=== PATIENT | female | born 1940 | race Caucasian/White ===

== ENCOUNTER 2019-11-10 08:17 | Emergency (ER) | payer MEDICARE, OTHER, SELFPAY ==
[2019-11-10] VITALS (9 sets, daily range): BP systolic 108–147; BP diastolic 57–79; PULSE 105–136; RESP 16–25; TEMP 37.3; O2SAT 90–94; BMI 28.2
--- NOTE | 2019-11-10 09:09 | XRR_ITS ---
PROCEDURE INFORMATION: Exam: XR Chest, 1 View Exam date and time: 11/10/2019 9:39 AM Age: 79 years old Clinical indication: Cough and shortness of breath; Patient HX: Cough/shortness of breath. Fever. HX of 2 toes amputated 3 weeks ago; Additional info: Dyspnea/cough TECHNIQUE: Imaging protocol: XR of the chest Views: 1 view. COMPARISON: No relevant prior studies available. FINDINGS: Lungs: Senescent changes are present. No focal consolidation is identified. Pleural space: Unremarkable. No pleural effusion. No pneumothorax. Heart/Mediastinum: Unremarkable. No cardiomegaly. Vasculature: Atherosclerotic calcifications are noted within the aortic arch. Bones/joints: Unremarkable. XR/XR chest 1V portable [id number] IMPRESSION: No acute abnormality.
--- NOTE | 2019-11-10 09:10 | ECG_ITS ---
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 Measurements Intervals [place] Rate: 121 P: VT: -1 QRS: 89 QRSD: 113 T: 54 QT: 338 QTc: 480 Interpretive Statements ATRIAL FIBRILLATION WITH RAPID VENTRICULAR RESPONSE WITH ABERRANT CONDUCTION OR VENTRICULAR PREMATURE COMPLEXES LOW QRS VOLTAGE IN PRECORDIAL LEADS [QRS DEFLECTION < 1.0 mV IN CHEST LEADS] POSSIBLE RIGHT VENTRICULAR CONDUCTION DELAY [RSR (QR) IN V1/V2] MODERATE ST DEPRESSION [0.05+ mV ST DEPRESSION] No previous ECG available for comparison Electronically Signed On 11-10-2019 21:22:45 CDT by Mago Ohara M.D. [id number]
--- NOTE | 2019-11-10 09:23 | USCV_ITS ---
Marissa Lara Age: 79 Gender: F : 1940 Exam Date: 11/10/2019 09:50 Ordering Phys: Abner Thrasher DO Technologist: Boubacar So [place] [facility] [place]: LEG SWELLING HISTORY: POST ARTERIAL SURGERY X3 WEEKS AGO. PATIENT NOT RESPONSIVE. PATIENT SPOUSE POOR HISTORIAN. PROCEDURES: Venous duplex imaging was performed in only the left lower extremity. The following venous structures were evaluated: common femoral vein, profunda vein, proximal portion of the greater saphenous vein, superficial femoral vein, and the popliteal vein. In addition, the posterior tibial and peroneal trunk were evaluated. Serial compression, augmentation maneuvers, and spectral Doppler flow evaluation were performed. FINDINGS: Normal 2-D Doppler and augmentation and compressibility throughout the lower extremity venous structures. Additional imaging through the proximal calf veins also reveals no thrombus. Limited evaluation of the greater saphenous vein is patent with no thrombus.. Anechoic area noted in the left groin. 2.72x1.49x3.12cm. No flow. Cystic vs seroma. There is also a large lymph node appearing area in the left groin. At the level of the GSV in the left groin there appears to be two lymph node appearing areas and a hematoma. The GSV appears to be patent. CONCLUSIONS No evidence of left lower extremity DVT. Seroma left groin 2.7x1.5x3.1cm. Enlarged lymph node left groin 3.2x1.5cm Hematoma along the GSV at groin Roberto Packer MD (Electronically Signed) Final Date: 10 November 2019 12:24 S
[2019-11-10 09:38] LABS: Basophils % 0.2 %; Eosinophils # 0.1 10^3/uL (0.0-0.8); Eosinophils % 0.5 %; Hematocrit 31.6 % (37.0-47.0); Hemoglobin 10.3 g/dL (11.5-15.3); Lymphocytes # 0.4 10^3/uL (0.8-4.8); Lymphocytes % 1.9 %; Mean Corpuscular HGB Conc 32.6 g/dL (30.0-36.0); Mean Corpuscular Hemoglobin 29.6 pg (28.0-34.0); Mean Corpuscular Volume 90.8 fL (81-99); Mean Platelet Volume 9.4 fL (7.4-10.4); Monocytes # 0.5 10^3/uL (0.2-0.9); Monocytes % 2.8 %; Neutrophils # 16.89 10^3/uL (1.8-7.7); Neutrophils % 91.9 %; Nucleated Red Blood Cells % 0 %; Platelet Count 260 10^3/cmm (130-400); Red Blood Count 3.48 10^6/uL (4.1-5.3); Red Cell Distribution Width 14.6 % (12.1-15.1); White Blood Count 18.4 10^3/uL (4.0-10.0)
[2019-11-10 09:45] LABS: Ketone (Acetest) Serum Negative (Negative)
[2019-11-10 09:49] LABS: INR 1.13 (0.8-1.2)
[2019-11-10 09:50] LABS: Partial Thromboplastin Time 33.1 SECONDS (23.9-36.7)
[2019-11-10 10:06] LABS: ABG PCO2 22.9 mmHg (35-45); ABG PH Result 7.52 (7.35-7.45); Alveolar-Arterial Oxygen Gradi 7.2 mmHg (5-10); Arterial Blood Gas Hematocrit 33.6 % (37-47); Base Excess ABG -2.6 mmol/L (-2.0-2.0); Blood Gas Allen Test Pos; Blood Gas Sample Site Brachial, left; Blood Gas Sample Type Arterial; Carboxyhemoglobin 1.3 %THgb (0.4-20.1); HCO3 ABG 18.8 mmol/L (22-26); HGB O2 Sat 92.6 % (95-100); Ionized Calcium Level - ABG 1.1 mmol/L (1.1-1.4); Methemoglobin 0.6 % (0.4-1.5); Oxygen Device ROOM AIR; Oxygen Saturation ABG 94.4; PO2 ABG 64.8 mmHg (80.0-100.0); Potassium Level - ABG 3.3 mmol/L (3.5-5.0)
[2019-11-10 10:10] LABS: Alanine Aminotransferase 12 U/L (0-33); Albumin Level 3.2 g/dL (3.5-5.2); Alkaline Phosphatase 70 IU/L (35-105); Anion Gap 20.9 (5-19); Aspartate Amino Transferase 25 U/L (0-32); Blood Urea Nitrogen 23 mg/dL (8-23); Calcium 7.6 mg/dL (8.5-10.5); Carbon Dioxide 20 mmol/L (22-29); Chloride 87 mmol/L (98-107); Globulin 2.6 g/dL (1.3-4.6); Glucose 181 mg/dL (65-115); Lipase 18 U/L (13-60); NT Pro B Type Natriuretic Pept 6104 pg/mL (0-450); Osmolality Calculated 259 mOsm/kg (285-295); Potassium 3.9 mmol/L (3.5-5.1); Sodium 124 mmol/L (136-145); Total Bilirubin 0.7 mg/dL (0.15-1.2); Total Protein 5.8 g/dL (6.6-8.7)
[2019-11-10 10:11] LABS: Add Urine Microscopic? YES; Bilirubin Urine 1+ (NEGATIVE); Blood Urine Neg (Negative); Glucose Urine UA Norm (Normal); Ketones Urine Negative (Negative); Leukocyte Esterase Urine Negative (Negative); Nitrate Urine Negative (Negative); Protein Urine Trace (Negative); Urine Appearance Clear (CLEAR); Urine Color Dark Yellow (Yellow); Urobilinogen Urine 1 mg/dL (Negative); pH Urine 5 (5-7)
[2019-11-10 10:13] LABS: Add Urine Culture? No; Bacteria Urine 1+; Mucus Urine TRACE; Squamous Epithelial Cell Urine 0-4 (0-5)
[2019-11-10 10:23] LABS: Troponin(5th) Baseline 110 ng/L (0-10)
[2019-11-10 10:25] LABS: RBC Urine 0-4 /hpf (0-2)
[2019-11-10] MEDS: vancomycin 1,000 MG in sodium chloride 0.9% 250 ML 250 MG IV (10:30)
[2019-11-10] MEDS: sodium chloride 0.9% 2,381.37 ML 2381.4 ML IV (10:55)
--- NOTE | 2019-11-10 11:10 | ECG_ITS ---
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 Measurements Intervals [place] Rate: 104 P: CA: -1 QRS: 75 QRSD: 65 T: 54 QT: 335 QTc: 442 Interpretive Statements Sinus tachycardia with frequent PACs and atrial run LOW QRS VOLTAGE IN PRECORDIAL LEADS [QRS DEFLECTION < 1.0 mV IN CHEST LEADS] SEPTAL MYOCARDIAL INFARCTION , PROBABLY OLD [40+ ms Q WAVE IN V1/V2] Compared to ECG 11/10/2019 10:56:42 Myocardial infarct finding now present Ventricular premature complex(es) no longer present Aberrant conduction of supraventricular beat(s) no longer present ST (T wave) deviation no longer present Electronically Signed On 11-11-2019 12:45:46 CDT by Mago Ohara M.D. [id number]
[2019-11-10 11:19] LABS: Reflex Lactate Order REFLEX LACTIC ORDERD
--- NOTE | 2019-11-10 11:20 | CT_ITS ---
WS: [id number] CT HEAD TECHNIQUE: Noncontrast CT of the head obtained from the skullbase to the vertex. CLINICAL INFORMATION: AMS COMPARISON: None. DLP: 1017.[address] scans at [facility] use at least one of these dose optimization techniques: automat ed exposure control; mA and/or kV adjustment per patient size (includes targeted exams where dose is matched to clinical indication); or iterative reconstruction. FINDINGS: Small focus of high attenuation along the right temporal lobe suspicious for small focus of hemorrhag e. Recommend interval follow-up to assess for change. This measures 7 mm. Ventricular system and basal cisterns are patent. Mild small vessel changes with mild parenchymal vol ume loss. 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 No extra-axial fluid collections. Small amount of fluid in the right maxillary sinus and right sphenoid sinus. Intracranial vascular ca lcification. Normal visualized soft tissues. Notified Abner Thrasher DO at 11/10/2019 12:[address]/CT head wo con* [id number] IMPRESSION: 1. Lobular focus of high attenuation along the right temporal lobe suspicious for small focus of hemorrhage. Recommend interval follow-up to assess for inter sarath change. This measures 7 mm. 2. Mild small vessel changes. Mild parenchymal volume loss. 3. 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
--- NOTE | 2019-11-10 11:20 | CT_ITS ---
WS: [id number] CONTRAST-ENHANCED CT LEFT FOOT TECHNIQUE: Contrast-enhanced CT left foot with coronal and sagittal reformatted images. CLINICAL INFORMATION: osteomeyelitis COMPARISON: None. DLP: 241.[address] scans at [facility] use at least one of these dose optimization techniques: automat ed exposure control; mA and/or kV adjustment per patient size (includes targeted exams where dose is matched to clinical indication); or iterative reconstruction. 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 Ankle mortise is preserved. Medial and lateral malleolus are normal. Mild subchondral cystic change involving the karen ar dome. Extensive soft tissue edema involving the lower leg and dorsal and plantar midfoot soft tiss ues. Wound VAC along the dorsal anterior forefoot. Chronic ulceration in this area. No evidence of drainab le abscess or fluid collection. Underlying edema. Destructive changes compatible with osteomyelitis i nvolving the second and third metatarsal heads. Evidence of prior postoperative changes amputation at the second second and third phalanges. Advanced degenerative arthritis at the first MTP with subchon dral cystic change. Achilles insertion enthesophyte. Attempted notification Abner Thrasher DO at 11/10/2019 12:[address]/CT foot LT w con [id number] IMPRESSION: 1. Chronic ulceration with fluid and wound vacuum overlying the dorsal forefoo t. 2. Destructive changes involving the second and third metatarsal heads consist ent with osteomyelitis. Prior amputation of the second and third phalanges. 3. No evidence of drainable abscess or fluid collection. Diffuse soft tissue e rina.
--- NOTE | 2019-11-10 12:06 | W.ED.FEVER ---
HPI - Fever General: Chief Complaint: Fever Stated Complaint: AMS Time Seen by Provider: 11/10/19 08:27 History of Present Illness: HPI Narrative: 79-year-old female with altered mental status is unresponsive and nonverbal. She was her normal self yesterday according to her who is at the bedside. Initially when she arrived he was now here with her. When he [id number] to get some history unable to get any history from the patient there is nothing for old records and arm system. According to the patient was her normal self yesterday was verbal and interactive this morning was found to be unresponsive. 3 weeks ago she had amputated over her second and third toes on the left foot she has a wound VAC in place this was done evidently at [facility]. She also had a stent in her right femoral artery and some kind of open surgery it looks like she may be a left femoropopliteal bypass. She has had a fever the last few days, the T-max at home was 102 which was 2 days ago. According to the she initially had a fever 2 days ago and it seemed to get better and then it was much worse this morning. MD elicited complaint: fever Pertinent past history: diabetes Onset (ago): day(s) Exacerbating factors: nothing Relieving factors: nothing Associated symptoms: Reports chills and confusion; Deny abdominal pain, flank pain, chest pain, diarrhea, dysuria, nasal congestion, nausea or vomiting Treatments prior to arrival fever: none Review of Systems Const: Reports: chills ENMT: Denies: throat pain, ear or mastoid pain, nasal discharge or nasal congestion Card: Denies: chest pain, edema, dyspnea on exertion or orthopnea Resp: Denies: dyspnea, productive cough or non-productive cough GI: Denies: abdominal pain, nausea, vomiting, hematemesis, coffee ground emesis, diarrhea, constipation, bloating, hematochezia or melena : Denies: flank pain, difficulty voiding, dysuria, urinary frequency or urinary urgency Skin/Breast: Denies: rash or pruritus Neuro: Reports: confusion PFSH ED PFSH: Medical History (Updated 11/11/19 @ 09:05 by Abner Thrasher DO) Diabetes mellitus History of amputation of toe History of appendicitis History of diabetes mellitus History of thyroid disease Hypertension Peripheral artery disease Surgical History (Updated 11/10/19 @ 12:12 by Abner Thrasher DO) History of hysterectomy Social History (Updated 11/10/19 @ 08:28 by Deepa Frankel RN) Smoking and tobacco status: never smoked Alcohol intake: never Physical Exam Const: COMMON NORMALS: no acute distress GENERAL APPEARANCE: cooperative and comfortable ORIENTATION/CONSCIOUSNESS: Yes awake, Yes oriented to person, Yes oriented to place and Yes oriented to time HENMT: COMMON NORMALS: normocephalic, atraumatic, hearing grossly normal bilaterally, external ears normal, EAC's normal, TM's normal bilaterally, Normal nasal mucous membranes and turbinates present, moist oral mucous membranes and oropharynx normal HEAD & SCALP: normocephalic and atraumatic NOSE: Normal nasal mucous membranes and turbinates present EXTERNAL EAR: Yes external ears normal EXTERNAL AUDITORY CANAL: EAC's normal TYMPANIC MEMBRANE: TM's normal bilaterally Eye: COMMON NORMALS: Equal, round and reactive pupils present, EOMs intact bilaterally, conjunctivae normal and no scleral icterus CONJUNCTIVA: Yes conjunctivae normal PUPIL: Yes Equal, round and reactive pupils present Neck/C-Spine: COMMON NORMALS: full ROM, no lymphadenopathy, supple and no JVD Lymph: LYMPHATIC: no lymphadenopathy noted and no lymphedema noted Resp: COMMON NORMALS: normal respiratory effort, No retractions, No use of accessory muscles and clear to auscultation bilaterally AUSCULTATION: clear to auscultation bilaterally Cardio: COMMON NORMALS: no JVD, regular rate, regular rhythm and No murmurs present (Cardio) RATE: regular rate RHYTHM: regular rhythm GI: COMMON NORMALS: Soft to palpation and No hepatosplenomegaly present AUSCULTATION: Yes normoactive bowel sounds PALPATION: Yes Soft to palpation, No Tenderness to palpation present (GI), No Guarding due to palpation present (GI) and Yes No hepatosplenomegaly present Extremity: COMMON NORMALS: normal to inspection, capillary refill normal, no clubbing, cyanosis or edema, no calf tenderness and no pedal edema Neuro: SENSORIUM/ORIENTATION: Yes oriented to person, Yes oriented to place and Yes oriented to time Skin: COMMON NORMALS: no rashes or lesions noted GENERAL SKIN EXAM: no rashes or lesions noted Course Vital Signs: Vital signs: Vital Signs Temperature 99.1 F 11/10/19 08:18 Pulse Rate 109 H 11/10/19 17:32 Respiratory Rate 16 11/10/19 17:32 Blood Pressure 125/75 11/10/19 17:32 Pulse Oximetry 90 11/10/19 17:32 MDM - Fever MDM Narrative: Medical decision making narrative: Initially was going to admit here however she requires ICU and we do not have any ICU beds were actually overflowing a bit. We will go ahead and try to transfer back to [place] where she has records and has been seen before. Talk to hospitalist they will assume care. Lab Data: Labs: Lab Results 11/10/19 11/10/19 11/10/19 Range/Units 09:29 09:29 09:29 WBC 18.4 H (4.0-10.0) 10^3/ uL RBC 3.48 L (4.1-5.3) 10^6/u L Hgb 10.3 L (11.5-15.3) g/dL Hct 31.6 L (37.0-47.0) % MCV 90.8 (81-99) fL MCH 29.6 (28.0-34.0) pg MCHC 32.6 (30.0-36.0) g/dL RDW 14.6 (12.1-15.1) % Plt Count 260 (130-400) 10^3/c mm MPV 9.4 (7.4-10.4) fL Neut % (Auto) 91.9 % Lymph % (Auto) 1.9 % [place] % (Auto) 2.8 % Eos % (Auto) 0.5 % Baso % (Auto) 0.2 % Neut # (Auto) 16.89 H (1.8-7.7) 10^3/u L Lymph # (Auto) 0.4 L (0.8-4.8) 10^3/u L [place] # (Auto) 0.5 (0.2-0.9) 10^3/u L Eos # (Auto) 0.1 (0.0-0.8) 10^3/u L Baso # (Auto) 0.0 (0.0-0.1) 10^3/u L Nucleated RBC % (a uto) 0 % Nucleated RBCs # 0.0 /100WBC PT 14.80 H (10.5-13.3) SECO NDS INR 1.13 (0.8-1.2) APTT 33.1 (23.9-36.7) SECO NDS Specimen Type Sample Site ABG pH (7.35-7.45) ABG pCO2 (35-45) mmHg ABG pO2 (80.0-100.0) mmH g ABG HCO3 (22-26) mmol/L ABG O2 Saturation ABG Base Excess (-2.0-2.0) mmol/ L Marcelo Test A-a O2 Gradient (5-10) mmHg Hematocrit (37-47) % Hgb O2 Saturation (95-100) % Carboxyhemoglobin (0.4-20.1) %THgb Methemoglobin (0.4-1.5) % Total Hemoglobin (12-16) g/dL Ionized Calcium (1.1-1.4) mmol/L O2 Delivery Device [employer] Counterperson ID Sodium 124 L (136-145) mmol/L Potassium 3.9 (3.5-5.1) mmol/L Chloride 87 L (98-107) mmol/L Carbon Dioxide 20 L (22-29) mmol/L Anion Gap 20.9 H (5-19) BUN 23 (8-23) mg/dL Creatinine 1.5 H (0.5-0.9) mg/dL GFR Calculation Not Reportable Glucose 181 H (65-115) mg/dL Calculated Osmolal ity 259 L (285-295) mOsm/k g Lactic Acid (0.5-2.2) mmol/L Lactic Acid (Sepsi s) (0.5-2.2) mmol/L Calcium 7.6 L (8.5-10.5) mg/dL Total Bilirubin 0.7 (0.15-1.2) mg/dL AST 25 (0-32) U/L ALT 12 (0-33) U/L Alkaline Phosphata se 70 (35-105) IU/L Troponin T Baselin e (0-10) ng/L Troponin T 120 [place] (0-10) ng/L Delta Troponin T (0-10) ABS# Troponin T Hi Sens 6Hr (0-10) ng/L Troponin T Hi Sens 6Hr Delta (0-12) ng/L NT-Pro-B Natriuret Pep 6104 H (0-450) pg/mL Total Protein 5.8 L (6.6-8.7) g/dL Albumin 3.2 L (3.5-5.2) g/dL Globulin 2.6 (1.3-4.6) g/dL Lipase 18 (13-60) U/L Urine Color (Yellow) Urine Appearance (CLEAR) Urine pH (5-7) Ur Specific Gravit y (1.005-1.030) Urine Protein (Negative) Urine Glucose (UA) (Normal) Urine Ketones (Negative) Urine Blood (Negative) Urine Nitrate (Negative) Urine Bilirubin (NEGATIVE) Urine Urobilinogen (Negative) mg/dL Ur Leukocyte Nighat ase (Negative) Urine RBC (0-2) /hpf Urine WBC (0-5) /hpf Ur Squamous Epith Cells (0-5) Amorphous Sediment Urine Bacteria (NONE) Urine Mucus Serum Ketones (Negative) 11/10/19 11/10/19 11/10/19 Range/Units 09:29 09:29 09:29 WBC (4.0-10.0) 10^3/ uL RBC (4.1-5.3) 10^6/u L Hgb (11.5-15.3) g/dL Hct (37.0-47.0) % MCV (81-99) fL MCH (28.0-34.0) pg MCHC (30.0-36.0) g/dL RDW (12.1-15.1) % Plt Count (130-400) 10^3/c mm MPV (7.4-10.4) fL Neut % (Auto) % Lymph % (Auto) % [place] % (Auto) % Eos % (Auto) % Baso % (Auto) % Neut # (Auto) (1.8-7.7) 10^3/u L Lymph # (Auto) (0.8-4.8) 10^3/u L [place] # (Auto) (0.2-0.9) 10^3/u L Eos # (Auto) (0.0-0.8) 10^3/u L Baso # (Auto) (0.0-0.1) 10^3/u L Nucleated RBC % (a uto) % Nucleated RBCs # /100WBC PT (10.5-13.3) SECO NDS INR (0.8-1.2) APTT (23.9-36.7) SECO NDS Specimen Type Sample Site ABG pH (7.35-7.45) ABG pCO2 (35-45) mmHg ABG pO2 (80.0-100.0) mmH g ABG HCO3 (22-26) mmol/L ABG O2 Saturation ABG Base Excess (-2.0-2.0) mmol/ L Marcelo Test A-a O2 Gradient (5-10) mmHg Hematocrit (37-47) % Hgb O2 Saturation (95-100) % Carboxyhemoglobin (0.4-20.1) %THgb Methemoglobin (0.4-1.5) % Total Hemoglobin (12-16) g/dL Ionized Calcium (1.1-1.4) mmol/L O2 Delivery Device [employer] Counterperson ID Sodium (136-145) mmol/L Potassium (3.5-5.1) mmol/L Chloride (98-107) mmol/L Carbon Dioxide (22-29) mmol/L Anion Gap (5-19) BUN (8-23) mg/dL Creatinine (0.5-0.9) mg/dL GFR Calculation Glucose (65-115) mg/dL Calculated Osmolal ity (285-295) mOsm/k g Lactic Acid 3.0 H (0.5-2.2) mmol/L Lactic Acid (Sepsi s) (0.5-2.2) mmol/L Calcium (8.5-10.5) mg/dL Total Bilirubin (0.15-1.2) mg/dL AST (0-32) U/L ALT (0-33) U/L Alkaline Phosphata se (35-105) IU/L Troponin T Baselin e 110 H* (0-10) ng/L Troponin T 120 [place] (0-10) ng/L Delta Troponin T (0-10) ABS# Troponin T Hi Sens 6Hr (0-10) ng/L Troponin T Hi Sens 6Hr Delta (0-12) ng/L NT-Pro-B Natriuret Pep (0-450) pg/mL Total Protein (6.6-8.7) g/dL Albumin (3.5-5.2) g/dL Globulin (1.3-4.6) g/dL Lipase (13-60) U/L Urine Color (Yellow) Urine Appearance (CLEAR) Urine pH (5-7) Ur Specific Gravit y (1.005-1.030) Urine Protein (Negative) Urine Glucose (UA) (Normal) Urine Ketones (Negative) Urine Blood (Negative) Urine Nitrate (Negative) Urine Bilirubin (NEGATIVE) Urine Urobilinogen (Negative) mg/dL Ur Leukocyte Nighat ase (Negative) Urine RBC (0-2) /hpf Urine WBC (0-5) /hpf Ur Squamous Epith Cells (0-5) Amorphous Sediment Urine Bacteria (NONE) Urine Mucus Serum Ketones Negative (Negative) 11/10/19 11/10/19 11/10/19 Range/Units 09:42 09:50 11:34 WBC (4.0-10.0) 10^3/ uL RBC (4.1-5.3) 10^6/u L Hgb (11.5-15.3) g/dL Hct (37.0-47.0) % MCV (81-99) fL MCH (28.0-34.0) pg MCHC (30.0-36.0) g/dL RDW (12.1-15.1) % Plt Count (130-400) 10^3/c mm MPV (7.4-10.4) fL Neut % (Auto) % Lymph % (Auto) % [place] % (Auto) % Eos % (Auto) % Baso % (Auto) % Neut # (Auto) (1.8-7.7) 10^3/u L Lymph # (Auto) (0.8-4.8) 10^3/u L [place] # (Auto) (0.2-0.9) 10^3/u L Eos # (Auto) (0.0-0.8) 10^3/u L Baso # (Auto) (0.0-0.1) 10^3/u L Nucleated RBC % (a uto) % Nucleated RBCs # /100WBC PT (10.5-13.3) SECO NDS INR (0.8-1.2) APTT (23.9-36.7) SECO NDS Specimen Type Arterial Sample Site Brachial, left ABG pH 7.52 H (7.35-7.45) ABG pCO2 22.9 L (35-45) mmHg ABG pO2 64.8 L (80.0-100.0) mmH g ABG HCO3 18.8 L (22-26) mmol/L ABG O2 Saturation 94.4 ABG Base Excess -2.6 L (-2.0-2.0) mmol/ L Marcelo Test Pos A-a O2 Gradient 7.2 (5-10) mmHg Hematocrit 33.6 L (37-47) % Hgb O2 Saturation 92.6 L (95-100) % Carboxyhemoglobin 1.3 (0.4-20.1) %THgb Methemoglobin 0.6 (0.4-1.5) % Total Hemoglobin 11.0 L (12-16) g/dL Ionized Calcium 1.1 (1.1-1.4) mmol/L O2 Delivery Device Room air [employer] Counterperson ID [id number] Sodium 123.0 L (136-145) mmol/L Potassium 3.3 L (3.5-5.1) mmol/L Chloride (98-107) mmol/L Carbon Dioxide (22-29) mmol/L Anion Gap (5-19) BUN (8-23) mg/dL Creatinine (0.5-0.9) mg/dL GFR Calculation Glucose 174.0 H (65-115) mg/dL Calculated Osmolal ity (285-295) mOsm/k g Lactic Acid (0.5-2.2) mmol/L Lactic Acid (Sepsi s) (0.5-2.2) mmol/L Calcium (8.5-10.5) mg/dL Total Bilirubin (0.15-1.2) mg/dL AST (0-32) U/L ALT (0-33) U/L Alkaline Phosphata se (35-105) IU/L Troponin T Baselin e (0-10) ng/L Troponin T 120 [place] 132.8 H (0-10) ng/L Delta Troponin T 22.8 H* (0-10) ABS# Troponin T Hi Sens 6Hr (0-10) ng/L Troponin T Hi Sens 6Hr Delta (0-12) ng/L NT-Pro-B Natriuret Pep (0-450) pg/mL Total Protein (6.6-8.7) g/dL Albumin (3.5-5.2) g/dL Globulin (1.3-4.6) g/dL Lipase (13-60) U/L Urine Color Dark yellow (Yellow) Urine Appearance Clear (CLEAR) Urine pH 5 (5-7) Ur Specific Gravit y 1.010 (1.005-1.030) Urine Protein Trace (Negative) Urine Glucose (UA) Norm (Normal) Urine Ketones Negative (Negative) Urine Blood Neg (Negative) Urine Nitrate Negative (Negative) Urine Bilirubin 1+ H (NEGATIVE) Urine Urobilinogen 1 H (Negative) mg/dL Ur Leukocyte Nig[place] ase Negative (Negative) Urine RBC 0-4 H (0-2) /hpf Urine WBC 5-10 H (0-5) /hpf Ur Squamous Epith Cells 0-4 H (0-5) Amorphous Sediment Not Reportable Urine Bacteria 1+ H (NONE) Urine Mucus Trace Serum Ketones (Negative) 11/10/19 11/10/19 Range/Units 12:32 15:35 WBC (4.0-10.0) 10^3/ uL RBC (4.1-5.3) 10^6/u L Hgb (11.5-15.3) g/dL Hct (37.0-47.0) % MCV (81-99) fL MCH (28.0-34.0) pg MCHC (30.0-36.0) g/dL RDW (12.1-15.1) % Plt Count (130-400) 10^3/c mm MPV (7.4-10.4) fL Neut % (Auto) % Lymph % (Auto) % [place] % (Auto) % Eos % (Auto) % Baso % (Auto) % Neut # (Auto) (1.8-7.7) 10^3/u L Lymph # (Auto) (0.8-4.8) 10^3/u L [place] # (Auto) (0.2-0.9) 10^3/u L Eos # (Auto) (0.0-0.8) 10^3/u L Baso # (Auto) (0.0-0.1) 10^3/u L Nucleated RBC % (a uto) % Nucleated RBCs # /100WBC PT (10.5-13.3) SECO NDS INR (0.8-1.2) APTT (23.9-36.7) SECO NDS Specimen Type Sample Site ABG pH (7.35-7.45) ABG pCO2 (35-45) mmHg ABG pO2 (80.0-100.0) mmH g ABG HCO3 (22-26) mmol/L ABG O2 Saturation ABG Base Excess (-2.0-2.0) mmol/ L Marcelo Test A-a O2 Gradient (5-10) mmHg Hematocrit (37-47) % Hgb O2 Saturation (95-100) % Carboxyhemoglobin (0.4-20.1) %THgb Methemoglobin (0.4-1.5) % Total Hemoglobin (12-16) g/dL Ionized Calcium (1.1-1.4) mmol/L O2 Delivery Device [employer] Counterperson ID Sodium (136-145) mmol/L Potassium (3.5-5.1) mmol/L Chloride (98-107) mmol/L Carbon Dioxide (22-29) mmol/L Anion Gap (5-19) BUN (8-23) mg/dL Creatinine (0.5-0.9) mg/dL GFR Calculation Glucose (65-115) mg/dL Calculated Osmolal ity (285-295) mOsm/k g Lactic Acid (0.5-2.2) mmol/L Lactic Acid (Sepsi s) 6.1 H* (0.5-2.2) mmol/L Calcium (8.5-10.5) mg/dL Total Bilirubin (0.15-1.2) mg/dL AST (0-32) U/L ALT (0-33) U/L Alkaline Phosphata se (35-105) IU/L Troponin T Baselin e (0-10) ng/L Troponin T 120 [place] (0-10) ng/L Delta Troponin T (0-10) ABS# Troponin T Hi Sens 6Hr 209.6 H (0-10) ng/L Troponin T Hi Sens 6Hr Delta 99.6 H* (0-12) ng/L NT-Pro-B Natriuret Pep (0-450) pg/mL Total Protein (6.6-8.7) g/dL Albumin (3.5-5.2) g/dL Globulin (1.3-4.6) g/dL Lipase (13-60) U/L Urine Color (Yellow) Urine Appearance (CLEAR) Urine pH (5-7) Ur Specific Gravit y (1.005-1.030) Urine Protein (Negative) Urine Glucose (UA) (Normal) Urine Ketones (Negative) Urine Blood (Negative) Urine Nitrate (Negative) Urine Bilirubin (NEGATIVE) Urine Urobilinogen (Negative) mg/dL Ur Leukocyte [place] ase (Negative) Urine RBC (0-2) /hpf Urine WBC (0-5) /hpf Ur Squamous Epith Cells (0-5) Amorphous Sediment Urine Bacteria (NONE) Urine Mucus Serum Ketones (Negative) Discharge Plan Discharge Patient Disposition: Xfer Other Clinical Impression: Acute hyponatremia, Acute alteration in mental status, Amputation of one or more toes, Hypertension, Diabetes mellitus, Intracranial bleed Condition: Stable Referrals: Jeferson Dubois FNP [Family Provider] - Interventions: ED Discharge Assessment Last Done: 11/10/19 17:32 ED Charges Last Done: 11/10/19 17:32 Discharge Date/Time: 11/10/19 17:33 Coding Level of Care Code ED Tennis Desk Team Member for Chg Fwd Exam Comprehensive
[2019-11-10] MEDS: iodixanol 320 mg/mL 100mL Btl IV (12:10)
[2019-11-10 12:32] LABS: Troponin 5 2HR 132.8 ng/L (0-10); Troponin 5 2HR Delta 22.8 ABS# (0-10)
[2019-11-10 14:11] LABS: Lactic Acid level (Lactate) 6.1 mmol/L (0.5-2.2)
--- NOTE | 2019-11-10 15:10 | ECG_ITS ---
[facility] Test Date: 2019-11-10 Pat Name: Marissa Lara Department: Room: Gender: Female [employer]: : 1940 Requested By: Abner Lopez Order Number: [id number] Gale MD: Kim Oilva M.D. Measurements Intervals [place] Rate: 117 P: [place]: -1 QRS: 88 QRSD: 134 T: 40 QT: 356 QTc: 497 Interpretive Statements ATRIAL FIBRILLATION WITH RAPID VENTRICULAR RESPONSE INTRAVENTRICULAR CONDUCTION DELAY [130+ ms QRS DURATION] Compared to ECG 11/10/2019 11:13:12 Intraventricular conduction delay now present Myocardial infarct finding no longer present Electronically Signed On 11-11-2019 20:44:22 CDT by Kim Oliva M.D. [id number]
--- NOTE | 2019-11-10 16:00 | PC.NURSE ---
pt not really responsive to verbal commands.
[2019-11-10 16:27] LABS: Troponin 5 6HR 209.6 ng/L (0-10); Troponin 5 6HR Delta 99.6 ng/L (0-12)
[2019-11-10] MEDS: ciprofloxacin 400 MG/200 ML PREMIX 200 MG IV (17:30)
[2019-11-10] MEDS: sodium chloride 0.9% 1,000 ML 999 ML IV (17:32)
--- NOTE | 2019-11-11 07:55 | PC.NURSE ---
Called [facility] and spoke with CHENTE Man regarding pt positive blood culture results.
== END 2019-11-10 17:33 | disposition other institution (70) ==
PROVIDERS: Emergency Provider Family Medicine; Family Provider Nurse Practitioner Family
DX: R41.82 Altered mental status, unspecified (principal); I10 Essential (primary) hypertension; E11.9 Type 2 diabetes mellitus without complications; I62.9 Nontraumatic intracranial hemorrhage, unspecified; E87.1 Hypo-osmolality and hyponatremia; Z89.429 Acquired absence of other toe(s), unspecified side; M79.89 Other specified soft tissue disorders
CPT/HCPCS: 12345; 36415; 36600; 51702; 70450; 71045; 73701; 80051; 80053; 81001; 81003; 82009; 82810; 83605; 83690; 83880; 83986; 84484; 85025; 85610; 85730; 87040; 87077; 87186; 87205; 93005; 93971; 96365; 96367; 96368; 96375; 99284; 99285; J0744; J3370; J3490; J7030; J7050; Q9967

== ENCOUNTER 2019-11-27 13:04 | Outpatient (CLI) | payer MEDICARE, OTHER, SELFPAY | END 2019-11-27 13:05 | disposition home or self-care (01) | LOC: WOUND 13:06 | PROVIDERS: Family Provider Nurse Practitioner Family; Visit Provider Nurse Practitioner Family | DX: T81.89XA Other complications of procedures, not elsewhere classified, initial encounter (principal); Z89.422 Acquired absence of other left toe(s) | CPT/HCPCS: 11044; G0463 ==

== ENCOUNTER 2019-11-27 15:24 | Inpatient (IN) | payer MEDICARE, OTHER, SELFPAY ==
[2019-11-27] VITALS (8 sets, daily range): BP systolic 111–125; BP diastolic 56–70; PULSE 85–94; RESP 18–21; TEMP 36.4–36.6; O2SAT 90–100; BMI 28.7
--- NOTE | 2019-11-27 15:59 | XR_ITS ---
WS: [id number] CHEST XRAY TECHNIQUE: Portable chest. CLINICAL INFORMATION: AMS COMPARISON: November 10, 2019 FINDINGS: Right central venous catheter with tip in distal SVC. Heart: Cardiomegaly. Lungs: Lungs are well aerated. No acute pulmonary infiltrates. Trace atelectasis right lower lobe. Bones: Normal visualized bony structures. XR/XR chest 1V portable [id number] IMPRESSION: 1. No acute chest findings 2. Air distended loops of bowel partially visualized in the upper abdomen
--- NOTE | 2019-11-27 15:59 | CTR_ITS ---
PROCEDURE INFORMATION: Exam: CT Head Without Contrast Exam date and time: 11/27/2019 4:20 PM Age: 79 years old Clinical indication: Altered mental status/memory loss; Additional info: AMS TECHNIQUE: Imaging protocol: Computed tomography of the head without contrast. Radiation optimization: All CT scans at this facility use at least one of these dose optimization techniques: automated exposure control; mA and/or kV adjustment per patient size (includes targeted exams where dose is matched to clinical indication); or iterative reconstruction. COMPARISON: CT head wo con* [id number] 11/10/2019 11:54 AM RADIATION DOSE METRICS: Total DLP (mGy-cm): 869.64 FINDINGS: Brain: Chronic lacunar infarct of the left thalamus. The blake-white differentiation is maintained. No hemorrhage. No edema. Ventricles: Normal. No ventriculomegaly. Bones/joints: Unremarkable. No acute fracture. Sinuses: Visualized sinuses are unremarkable. No fluid levels. Mastoid air cells: Visualized mastoid air cells are well aerated. Orbits: Bilateral cataract surgery. Soft tissues: Unremarkable. CT/CT head wo con* [id number] IMPRESSION: No acute intracranial abnormality. Chronic microvascular ischemic changes. Radiation Dose CTDIVOL = (mGy): DLP = 869.64 (mGy-cm)
--- NOTE | 2019-11-27 16:03 | W.ED.GENADLT ---
HPI - General Adult General: Chief complaint: General Medical Stated complaint: ABNORMAL LABS/ LETHARGIC Time Seen by Provider: 11/27/19 15:40 Source: family Mode of arrival: EMS Limitations: language barrier History of Present Illness: HPI narrative: Patient is a resident of a local care home and was admitted there about 3 days ago. The patient is currently nonverbal and unable to give a history, although she did not and shake her head a few times to some questions. Her history was given by her . The patient is an uncontrolled diabetic who recently, about a week ago had a CVA with some residual right-sided weakness. Her speech has remained unaffected according to her . She also has a diabetic foot ulcer and has a wound VAC on her left foot. Her also states that she has been having issues with her potassium for several months and usually when her potassium is low she becomes nonverbal like she is today. She has needed intravenous potassium in the past. Today when they checked her labs at the care home she was noted to have low potassium and elevated BUN and creatinine. Following the CVA her says her fluids needed to be thickened and since then the patient has not been drinking much. No fever Review of Systems General: Reports: Other (Unobtainable because the patient is nonverbal) [facility] ED PFSH: Medical History (Updated 11/27/19 @ 19:29 by Jordyn Huntley MD, [facility]) Diabetes mellitus Femoral-popliteal bypass graft occlusion, left History of amputation of toe History of appendicitis History of diabetes mellitus History of thyroid disease Hyperlipidemia Hypertension Hypertension Peripheral artery disease Surgical History (Updated 11/27/19 @ 18:46 by Lexa Penaloza MD) History of amputation of lesser toe of left foot History of hysterectomy Social History (Reviewed 11/27/19 @ 16:07 by Jordyn Huntley MD, [facility]) Smoking and tobacco status: never smoked Alcohol intake: never Physical Exam Const: COMMON NORMALS: no acute distress, average body habitus, no limitations, healthy appearing, alert and well nourished HENMT: COMMON NORMALS: normocephalic, atraumatic and moist oral mucous membranes HEAD & SCALP: normocephalic and atraumatic Neck/C-Spine: COMMON NORMALS: no meningeal signs and no JVD Resp: COMMON NORMALS: normal respiratory effort, No retractions, No use of accessory muscles, clear to auscultation bilaterally and percussion normal AUSCULTATION: clear to auscultation bilaterally PERCUSSION: percussion normal Cardio: COMMON NORMALS: no JVD, regular rate, regular rhythm, S1 normal heart sound present, S2 normal heart sound present, No gallops present (Cardio), No clicks present (Cardio), No murmurs present (Cardio), No rub (Cardio) and Peripheral pulses 2+ throughout RATE: regular rate RHYTHM: regular rhythm HEART SOUNDS: S1 normal heart sound present and S2 normal heart sound present PERIPHERAL PULSES: Peripheral pulses 2+ throughout GI: COMMON NORMALS: Soft to palpation, non-tender, No hepatosplenomegaly present, no masses and no bruits INSPECTION: Yes abdominal distension AUSCULTATION: Yes Hypoactive bowel sounds present and Yes High-pitched bowel sounds present PALPATION: Yes Soft to palpation, No Tenderness to palpation present (GI) and Yes No hepatosplenomegaly present PERCUSSION: tympanic to percussion : COMMON NORMALS: Yes no CVA tenderness BLADDER/KIDNEY EXAM: Yes no CVA tenderness Back/Pelvis: COMMON NORMALS: no CVA tenderness Extremity: COMMON NORMALS: normal to inspection, full ROM, capillary refill normal, no calf tenderness and no pedal edema Neuro: SENSORIUM/ORIENTATION: Yes alert MENINGEAL SIGNS: Yes no meningeal signs OTHER: Alert but nonverbal. She moves her left lower open extremity but during my exam she cannot move her eyes. She is able to follow some commands and nod or shake her head to questions but she is unable to follow all commands. Complete neurologic exam is not possible because of her mental status Course ED course: 79-year-old female patient who presented to the emergency department from the care home with electrolytes abnormalities. She was hypokalemic and also had significantly elevated BUN. The patient was in acute renal failure and had ileus with distention on examination. Because of all these she is admitted to the hospital for further evaluation and management Consultations: Consultation #1: Discussed with Dr. Penaloza, hospitalist and he kindly accepted the patient to his service. Time: 18:00 Vital Signs: Vital signs: Vital Signs Temperature 97.6 F 11/27/19 15:33 Pulse Rate 93 11/27/19 18:57 Respiratory Rate 21 H 11/27/19 18:57 Blood Pressure 125/65 11/27/19 18:57 Pulse Oximetry 98 11/27/19 18:57 MDM - General Adult MDM Narrative: Medical decision making narrative: 79-year-old female care home resident with a recent CVA who presents to the emergency department in acute renal failure, hyperkalemia and ileus. She is admitted to the hospital for further evaluation and management. Potassium was replaced intravenously while she was here and she will probably get more replenishment in the hospital. Medical Records: Attestation: I reviewed the patient's medical records. Lab Data: Attestation: I reviewed the patient's lab results. Labs: Lab Results 11/27/19 11/27/19 11/27/19 Range/Units 16:23 16:23 16:23 WBC 13.1 H (4.0-10.0) 10^3/ uL RBC 3.65 L (4.1-5.3) 10^6/u L Hgb 10.5 L (11.5-15.3) g/dL Hct 32.5 L (37.0-47.0) % MCV 89.0 (81-99) fL MCH 28.8 (28.0-34.0) pg MCHC 32.3 (30.0-36.0) g/dL RDW 17.1 H (12.1-15.1) % Plt Count 364 (130-400) 10^3/c mm MPV 11.7 H (7.4-10.4) fL Neut % (Auto) 79.3 % Lymph % (Auto) 11.2 % [place] % (Auto) 8.9 % Eos % (Auto) 0.1 % Baso % (Auto) 0.1 % Neut # (Auto) 10.39 H (1.8-7.7) 10^3/u L Lymph # (Auto) 1.5 (0.8-4.8) 10^3/u L [place] # (Auto) 1.2 H (0.2-0.9) 10^3/u L Eos # (Auto) 0.0 (0.0-0.8) 10^3/u L Baso # (Auto) 0.0 (0.0-0.1) 10^3/u L Nucleated RBC % (a uto) 0 % Nucleated RBCs # 0.0 /100WBC Sodium 139 (136-145) mmol/L Potassium 2.7 L* (3.5-5.1) mmol/L Chloride 105 (98-107) mmol/L Carbon Dioxide 20 L (22-29) mmol/L Anion Gap 16.7 (5-19) BUN 80 H (8-23) mg/dL Creatinine 2.8 H (0.5-0.9) mg/dL GFR Calculation Not Reportable Glucose 313 H (65-115) mg/dL Calculated Osmolal ity 300 H (285-295) mOsm/k g Calcium 7.6 L (8.5-10.5) mg/dL Phosphorus 3.9 (2.5-4.5) mg/dL Magnesium 2.6 H (1.7-2.3) mg/dL Total Bilirubin 0.4 (0.15-1.2) mg/dL AST 46 H (0-32) U/L ALT 23 (0-33) U/L Alkaline Phosphata se 62 (35-105) IU/L C-Reactive Protein 25.6 H (0.0-4.9) mg/L NT-Pro-B Natriuret Pep 78311 H (0-450) pg/mL Total Protein 5.5 L (6.6-8.7) g/dL Albumin 2.9 L (3.5-5.2) g/dL Globulin 2.6 (1.3-4.6) g/dL Imaging Data^: CT Head: Radiologist's impression: [place] [address] CT Scan Report Signed Patient: Ethan Lara #: [id number] : 2Acct#:[id number] Age/Sex: 79 / FADM Date: 11/27/19 Loc: ERRoom/Bed: Attending Dr: Ordering Provider/Ordering MD: Jordyn Huntley MD, [facility] Date of Service: 11/27/19 Procedure(s): CT head wo con* [id number] Accession Number(s): [id number] Report Number: [id number] PROCEDURE INFORMATION: Exam: CT Head Without Contrast Exam date and time: 11/27/2019 4:20 PM Age: 79 years old Clinical indication: Altered mental status/memory loss; Additional info: AMS TECHNIQUE: Imaging protocol: Computed tomography of the head without contrast. Radiation optimization: All CT scans at this facility use at least one of these dose optimization techniques: automated exposure control; mA and/or kV adjustment per patient size (includes targeted exams where dose is matched to clinical indication); or iterative reconstruction. COMPARISON: CT head wo con* [id number] 11/10/2019 11:54 AM RADIATION DOSE METRICS: Total DLP (mGy-cm): 869.64 FINDINGS: Brain: Chronic lacunar infarct of the left thalamus. The blake-white differentiation is maintained. No hemorrhage. No edema. Ventricles: Normal. No ventriculomegaly. Bones/joints: Unremarkable. No acute fracture. Sinuses: Visualized sinuses are unremarkable. No fluid levels. Mastoid air cells: Visualized mastoid air cells are well aerated. Orbits: Bilateral cataract surgery. Soft tissues: Unremarkable. CT/CT head wo con* [id number] IMPRESSION: No acute intracranial abnormality. Chronic microvascular ischemic changes. Radiation Dose CTDIVOL = (mGy): DLP = 869.64 (mGy-cm) Dictated By:Foster Arreola MD Signed By:Foster Arreola MDSigned Date/Time:11/27/191648 DD/ 47 CT Abd/Pel: Radiologist's impression: [address] [address] [address] Scan Report Signed Patient: Ethan Lara #: [id number] : [facility][id number] Age/Sex: 79 / FADM Date: 11/27/19 Loc: ERRoom/Bed: Attending Dr: Ordering Provider/Ordering MD: Jordyn Huntley MD, [facility] Date of Service: 11/27/19 Procedure(s): CT abdomen pelvis wo con [id number] Accession Number(s): [id number] Report Number: [id number] PROCEDURE INFORMATION: Exam: CT Abdomen And Pelvis Without Contrast Exam date and time: 11/27/2019 5:17 PM Age: 79 years old Clinical indication: Bloating; Additional info: Abdominal distension TECHNIQUE: Imaging protocol: Computed tomography of the abdomen and pelvis without contrast. Radiation optimization: All CT scans at this facility use at least one of these dose optimization techniques: automated exposure control; mA and/or kV adjustment per patient size (includes targeted exams where dose is matched to clinical indication); or iterative reconstruction. COMPARISON: No relevant prior studies available. RADIATION DOSE METRICS: Total DLP (mGy-cm): 1321.69 FINDINGS: Liver: Normal. No mass. Gallbladder and bile ducts: Normal. No calcified stones. No ductal dilation. Pancreas: Normal. No ductal dilation. Spleen: Normal. No splenomegaly. Adrenals: Normal. No mass. Kidneys and ureters: Normal. No hydronephrosis. Stomach and bowel: The colon is diffusely to enlarged and air-filled measuring up to 11 cm in the cecal region. Motion artifact degrades the images. Appendix: No evidence of appendicitis. Intraperitoneal space: Unremarkable. No free air. No significant fluid collection. Vasculature: Atherosclerotic calcification of the aorta and bilateral iliac vessels. Lymph nodes: Unremarkable. No enlarged lymph nodes. Bladder: Unremarkable as visualized. Reproductive: Unremarkable as visualized. Bones/joints: Degenerative changes of the spine. Soft tissues: Diffuse anasarca. CT/CT abdomen pelvis wo con [id number] IMPRESSION: 1. Diffuse anasarca. 2. Entire colon is air-filled and enlarged measuring up to 11 cm. Findings may suggest ileus. Clinical correlation. Radiation Dose CTDIVOL = (mGy): DLP = 1321.69 (mGy-cm) Dictated By:Foster Arreola MD Signed By:Foster Arreolaigned Date/Time:11/27/191751 DD/ 50 EKG Data^: EKG 1: Attestation: I personally reviewed and interpreted this EKG as follows: EKG interpretation date: 11/27/19 EKG interpretation time: 16:45 Prior EKG tracings: not available for review Interpretation: Sinus rhythm with frequent PVCs. Heart rate [address] changes. Normal axis. Computer generated interpretation: Chest X-Ray 11/27/19 15:59 IMPRESSION: 1. No acute chest findings 2. Air distended loops of bowel partially visualized in the upper abdomen Head CT 11/27/19 15:59 IMPRESSION: No acute intracranial abnormality. Chronic microvascular ischemic changes. Radiation Dose CTDIVOL = (mGy): DLP = 869.64 (mGy-cm) Abdomen/Pelvis CT 11/27/19 17:14 IMPRESSION: 1. Diffuse anasarca. 2. Entire colon is air-filled and enlarged measuring up to 11 cm. Findings may suggest ileus. Clinical correlation. Radiation Dose CTDIVOL = (mGy): DLP = 1321.69 (mGy-cm) Discharge Plan Discharge Patient Disposition: Admitted As Inpatient Admit Provider: Lexa Penaloza Clinical Impression: Acute renal failure, Ileus, Acute prerenal azotemia, Acute hypokalemia Condition: Stable Interventions: ED Discharge Assessment Last Done: 11/27/19 18:57 ED Charges Last Done: 11/27/19 18:57 Discharge Date/Time: 11/27/19 19:07 Coding Level of Care Code ED Pre Algebra Teacher for Chg Fwd Exam Comprehensive
--- NOTE | 2019-11-27 16:15 | ECG_ITS ---
[facility] Test Date: 2019-11-27 Pat Name: Marissa Lara Department: Room: Gender: Female Membership Manager: : 1940 Requested By: Jordyn Huntley I Order Number: [id number] Gale MD: Mago Ohara M.D. Measurements Intervals [place] Rate: 88 P: 25 AR: 205 QRS: 15 QRSD: 110 T: 187 QT: 418 QTc: 508 Interpretive Statements SINUS RHYTHM WITH FREQUENT VENTRICULAR PREMATURE COMPLEXES ST DEVIATION AND MODERATE T-WAVE ABNORMALITY, CONSIDER ANTEROLATERAL ISCHEMIA Compared to ECG 11/10/2019 16:04:19 Ventricular premature complex(es) now present T-wave abnormality now present Possible ischemia now present Atrial fibrillation no longer present Intraventricular conduction delay no longer present Electronically Signed On 11-27-2019 20:12:44 CDT by Mago Ohara M.D. [id number]
[2019-11-27 16:30] LABS: Basophils % 0.1 %; Eosinophils % 0.1 %; Hematocrit 32.5 % (37.0-47.0); Hemoglobin 10.5 g/dL (11.5-15.3); Lymphocytes # 1.5 10^3/uL (0.8-4.8); Lymphocytes % 11.2 %; Mean Corpuscular HGB Conc 32.3 g/dL (30.0-36.0); Mean Corpuscular Hemoglobin 28.8 pg (28.0-34.0); Mean Platelet Volume 11.7 fL (7.4-10.4); Monocytes # 1.2 10^3/uL (0.2-0.9); Monocytes % 8.9 %; Neutrophils # 10.39 10^3/uL (1.8-7.7); Neutrophils % 79.3 %; Nucleated Red Blood Cells % 0 %; Platelet Count 364 10^3/cmm (130-400); Red Blood Count 3.65 10^6/uL (4.1-5.3); Red Cell Distribution Width 17.1 % (12.1-15.1); White Blood Count 13.1 10^3/uL (4.0-10.0)
[2019-11-27 17:02] LABS: Alanine Aminotransferase 23 U/L (0-33); Albumin Level 2.9 g/dL (3.5-5.2); Alkaline Phosphatase 62 IU/L (35-105); Aspartate Amino Transferase 46 U/L (0-32); Blood Urea Nitrogen 80 mg/dL (8-23); Calcium 7.6 mg/dL (8.5-10.5); Carbon Dioxide 20 mmol/L (22-29); Chloride 105 mmol/L (98-107); Globulin 2.6 g/dL (1.3-4.6); Glucose 313 mg/dL (65-115); Magnesium 2.6 mg/dL (1.7-2.3); Osmolality Calculated 300 mOsm/kg (285-295); Phosphorus 3.9 mg/dL (2.5-4.5); Sodium 139 mmol/L (136-145); Total Bilirubin 0.4 mg/dL (0.15-1.2); Total Protein 5.5 g/dL (6.6-8.7)
[2019-11-27 17:08] LABS: Anion Gap 16.7 (5-19)
[2019-11-27 17:09] LABS: Potassium 2.7 mmol/L (3.5-5.1)
--- NOTE | 2019-11-27 17:14 | CTR_ITS ---
PROCEDURE INFORMATION: Exam: CT Abdomen And Pelvis Without Contrast Exam date and time: 11/27/2019 5:17 PM Age: 79 years old Clinical indication: Bloating; Additional info: Abdominal distension TECHNIQUE: Imaging protocol: Computed tomography of the abdomen and pelvis without contrast. Radiation optimization: All CT scans at this facility use at least one of these dose optimization techniques: automated exposure control; mA and/or kV adjustment per patient size (includes targeted exams where dose is matched to clinical indication); or iterative reconstruction. COMPARISON: No relevant prior studies available. RADIATION DOSE METRICS: Total DLP (mGy-cm): 1321.69 FINDINGS: Liver: Normal. No mass. Gallbladder and bile ducts: Normal. No calcified stones. No ductal dilation. Pancreas: Normal. No ductal dilation. Spleen: Normal. No splenomegaly. Adrenals: Normal. No mass. Kidneys and ureters: Normal. No hydronephrosis. Stomach and bowel: The colon is diffusely to enlarged and air-filled measuring up to 11 cm in the cecal region. Motion artifact degrades the images. Appendix: No evidence of appendicitis. Intraperitoneal space: Unremarkable. No free air. No significant fluid collection. Vasculature: Atherosclerotic calcification of the aorta and bilateral iliac vessels. Lymph nodes: Unremarkable. No enlarged lymph nodes. Bladder: Unremarkable as visualized. Reproductive: Unremarkable as visualized. Bones/joints: Degenerative changes of the spine. Soft tissues: Diffuse anasarca. CT/CT abdomen pelvis con [id number] IMPRESSION: 1. Diffuse anasarca. 2. Entire colon is air-filled and enlarged measuring up to 11 cm. Findings may suggest ileus. Clinical correlation. Radiation Dose CTDIVOL = (mGy): DLP = 1321.69 (mGy-cm)
[2019-11-27] MEDS: potassium chloride premix 40 MEQ/100 ML PREMIX 25 MEQ IV (17:47)
[2019-11-27 17:52] LABS: C Reactive Protein 25.6 mg/L (0.0-4.9)
[2019-11-27 18:01] LABS: NT Pro B Type Natriuretic Pept 34937 pg/mL (0-450)
--- NOTE | 2019-11-27 18:31 | P.HP_ITS ---
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 After her stroke, patient was discharged to [facility], they are according to , she continues to have right upper lower extremity weakness, is completely dependent on activities of daily living, Nelson lift, according to , she has some productive aphasia, but can carry out more, most conversations, has a Field catheter in place, has a right pigtail catheter in place for IV antibiotics, she is been on daptomycin, for osteomyelitis of her foot, states that she has been relatively doing well after significant stroke, no fevers, chills, no nausea, no vomiting, no chest pain, no shortness of breath, no falls, no injuries. However this morning, patient was less vocal, not acting appropriate, she had abdominal distention, blood work-up at the shelter showed hypokalemia and acute kidney injury, so she was brought to the emergency room for further evaluation. Information that I got from the shelter seems to fit the story above, I was not really able to get any more history from the shelter. Currently patient is not answering any questions, she does follow commands such as squeezing my fingers on the left side, wiggling her toes on the left side, smiling for me, but is not able to answer questions, or produce words, not sure if this is related to her stroke, or related to her present condition. Work-up in the emergency room showed hypokalemia, potassium 2.7, creatinine of 2.8, BUN of 80, BNP is 34,000, white blood cell count 13.1, neutrophilic, UA still pending, chest x-ray no focal pneumonia, CT of the abdomen shows that the entire colon is air-filled and a large measuring up to 11 cm, may just suggest ileus. Review of Systems General: Reports: ROS unobtainable due to medical condition Medications/Allergies Home Medications Medication Instructions Recorded Confirmed Last Taken Type aspirin [Aspir-81] 81 mg PO DAILY 11/10/19 11/27/19 11/27/19 History cilostazol 100 mg PO BIDAC 11/10/19 11/27/19 11/27/19 History clopidogrel 75 mg PO DAILY 11/10/19 11/27/19 11/27/19 History diltiazem HCl 240 mg PO DAILY 11/10/19 11/27/19 11/27/19 History levothyroxine 100 mcg PO DAILY 11/10/19 11/27/19 11/27/19 History losartan-hydrochlorothiazide 1 tab PO DAILY 11/10/19 11/27/19 11/27/19 History naproxen sodium [Aleve] 440 mg PO DAILY PRN 11/10/19 11/27/19 Unknown History Dulcolax (bisacodyl) 10 mg NV PRN 11/27/19 11/27/19 Unknown History acetaminophen 650 mg PO Q6H PRN 11/27/19 11/27/19 Unknown History albuterol sulfate 2.5 mg INHALATION Q2H PRN 11/27/19 11/27/19 Unknown History apixaban [Eliquis] 5 mg PO BID 11/27/19 11/27/19 11/27/19 History atorvastatin 40 mg PO BEDTIME 11/27/19 11/27/19 11/26/19 History bisacodyl 10 mg NV Q12H PRN 11/27/19 11/27/19 Unknown History daptomycin 660 mg IV QAM 11/27/19 11/27/19 11/27/19 07:52 History insulin aspart U-100 [Novolog 5 unit SUBCUT TID 11/27/19 11/27/19 11/27/19 10:55 History U-100 Insulin aspart] insulin aspart U-100 [Novolog See Rx Instructions .ROUTE .COMPLEX 11/27/19 11/27/19 11/27/19 10:55 History U-100 Insulin aspart] 8 units insulin glargine [Lantus U-100 30 unit SUBCUT BEDTIME 11/27/19 11/27/19 Unknown History Insulin] magnesium hydroxide [Milk of 30 ml PO DAILY PRN 11/27/19 11/27/19 Unknown History Magnesia] sodium phosphates [Fleet Enema] 118 ml NV DAILY PRN 11/27/19 11/27/19 Unknown History Allergies Allergy/AdvReac Type Severity Reaction Status Date / Time No Known Allergies Allergy Verified 11/27/19 16:00 PFSH Acute PFSH: Medical History Diabetes mellitus History of amputation of toe History of appendicitis History of diabetes mellitus History of thyroid disease Hypertension Peripheral artery disease Surgical History History of hysterectomy Social History Smoking and tobacco status: never smoked Alcohol intake: never Vitals/I&O/Wt Last Vital Signs Temp 97.6 F 11/27/19 15:33 Pulse 89 11/27/19 17:45 Resp 18 11/27/19 17:45 BP 114/56 11/27/19 17:45 Pulse Ox 100 11/27/19 17:45 Weight last 48 hrs Weight 80.739 kg Physical Exam Narrative: EXAM NARRATIVE: Does follow commands such as wiggling her toes, squeezing my fingers on the left side, smiling, but does not answer questions Const: COMMON NORMALS: no acute distress GENERAL APPEARANCE: cooperative and comfortable HENMT: COMMON NORMALS: normocephalic HEAD & SCALP: normocephalic Eye: COMMON NORMALS: Equal, round and reactive pupils present and EOMs intact bilaterally GENERAL EYE: appearance normal, both eyes and all related structures PUPIL: Yes Equal, round and reactive pupils present Neck/C-Spine: COMMON NORMALS: full ROM and no lymphadenopathy Lymph: LYMPHATIC: no lymphadenopathy noted Chest: OTHER: Has a right port in place Resp: COMMON NORMALS: normal respiratory effort, No retractions, No use of accessory muscles and clear to auscultation bilaterally AUSCULTATION: clear to auscultation bilaterally Cardio: COMMON NORMALS: no JVD, regular rate, regular rhythm, S1 normal heart sound present, S2 normal heart sound present, No gallops present (Cardio), No cl icks present (Cardio) and No murmurs present (Cardio) RATE: regular rate RHYTHM: regular rhythm HEART SOUNDS: S1 normal heart sound present and S2 normal heart sound present GI: COMMON NORMALS: Soft to palpation, non-tender and No hepatosplenomegaly present INSPECTION: Yes normal to inspection and Yes abdominal distension AUSCULTATION: Yes Hyperactive bowel sounds present PALPATION: Yes Soft to palpation, No Tenderness to palpation present (GI), No Guarding due to palpation present (GI), No Rigid due to palpation, Yes No hepatosplenomegaly present and No Rebound tenderness present PERCUSSION: tympanic to percussion Extremity: COMMON NORMALS: normal to inspection, full ROM and no pedal edema OTHER: Right lower extremity, wrapped, amputation of second third digit, wound VAC in place Neuro: OTHER: Does follow commands such as moving her left upper extremity, wiggling her toes of the left side, has come pleat flaccid paralysis of the right upper right lower extremity, can smile for me, has a little bit of a droop on the right side, Urinary Catheter Management^: Field: Cath Placed During This Visit: no Urethral Indwelling: Yes Data : 11/27/19 16:23 11/27/19 16:23 A&P Assessment and plan (1) Toxic encephalopathy: -Multifactorial related to hypokalemia, ileus, previous stroke, possible infectious? -Other possibilities could be infectious, UA pending, blood cultures pending -Of note from patient's ER visit on 11/10/2019, her blood cultures grew group A strep pyogenes -Chest x-ray no focal pneumonia -White blood cell count 13,000, will get a pro-Aren -Follow UAs, follow blood cultures -Patient is on daptomycin for left lower extremity osteomyelitis, will get a CPK level, hold for now given concerns for [place] -We will also get a C. difficile given ileus -Neurochecks, aspiration precautions, seizure precautions will keep patient n.p.o. -Start gentle hydration given elevated BNP, although lungs no evidence of pneumonia or pallor edema chest x-ray, lungs sound clear to auscultation Status: Acute (2) Ileus: -CT scan shows:The colon is diffusely to enlarged and air-filled measuring up to 11 cm in the cecal region. Motion artifact degrades the images. -Clinically abdomen is distended, hypoactive bowel sounds, no rigidity, no rebound, no guarding -Patient is not sure when last bowel movement -Serial abdominal exams -We will get a C. difficile -Hold daptomycin -Keep patient n.p.o. -Gentle IV hydration Status: Acute (3) Hypokalemia: -Likely secondary dehydration, poor oral intake -Patient's potassium has been repleted by the ER, -Repeat potassium midnight, tomorrow morning Status: Acute (4) Acute kidney injury: -Likely sec to dehydration, poor oral intake, gentle IV hydration Status: Acute (5) Atrial fibrillation: Continue telemetry monitoring, continue Eliquis- Status: Acute (6) Peripheral vascular disease: -Status post right femoral stent -Status post left fem pop bypass -On aspirin, statin, Plavix,cilostazol resolved Status: Acute (7) Insulin dependent type 2 diabetes mellitus: -Currently patient n.p.o. -Hold home insulin -Low-dose sliding scale Status: Acute (8) History of amputation of lesser toe of left foot: Status: Inactive (9) Hypertension: -Continue home medication Status: Acute (10) Hyperlipidemia: -Continue home medication Status: Acute (11) Hypothyroid: -Check TSH,, continue home medication Status: Acute Additional A&P Information Patient's at bedside, states that patient is full code Attestations Medical Necessity Statement*: Patient requires hospitalization, inpatient, greater than 2 midnights, for ileus, hypokalemia, toxic encephalopathy Coding Level of Care Code Acute Manager Research Development for [facility] F[facility] Diagnoses Toxic encephalopathy G92 Ileus K56.7 Hypokalemia E87.6 Acute kidney injury N17.9 Atrial fibrillation I48.91 Peripheral vascular disease I73.9 Insulin dependent type 2 diabetes mellitus E11.9; Z79.4 History of amputation of lesser toe of left foot Z89.422 Hypertension I10 Hyperlipidemia E78.5 Hypothyroid E03.9
[2019-11-27 20:05] LABS: Procalcitonin 0.25 ng/mL (0-0.5); Thyroid Stimulating Hormone 1.97 uIU/mL (0.27-4.20)
[2019-11-27 20:16] LABS: Chol HDL Ratio 3.66 mg/dL (0.0-4.40); Cholesterol 128 mg/dL (0-200); HDL Cholesterol 35 mg/dL (60-100); LDL Cholesterol Calculated 69 mg/dL (50-129); LDL HDL Ratio 1.97 RATIO (0.00-3.22); Triglycerides 121 mg/dL (0-150)
[2019-11-27 20:49] LABS: Creatine Phosphokinase 897 U/L (26-192)
[2019-11-27 20:55] LABS: Erythrocyte Sedimentation Rate 13 mm/hr (0-15)
[2019-11-27 21:04] LABS: Estmated Average Glucose 160; Hemoglobin A1C 7.2 % (4.0-6.0)
[2019-11-27] MEDS: sodium chloride 0.9% 1,000 ML 75 ML IV (22:11)
--- NOTE | 2019-11-27 23:05 | PM.EVENT ---
Event Note Event Note: lab contacted me about 2300 labs. Potassium previously ordered had been disconnected and only recently restarted. I have cancelled current lab secondary to currently receiving potassium infusion. Has CMP, Mag, Phos ordered for morning.
[2019-11-28] VITALS (17 sets, daily range): BP systolic 103–146; BP diastolic 46–83; PULSE 57–93; RESP 17–22; TEMP 35.8–36.7; O2SAT 93–100
[2019-11-28 05:03] LABS: Basophils % 0.1 %; Hematocrit 30.3 % (37.0-47.0); Lymphocytes # 1.8 10^3/uL (0.8-4.8); Lymphocytes % 13.4 %; Mean Corpuscular Hemoglobin 29.6 pg (28.0-34.0); Mean Corpuscular Volume 89.6 fL (81-99); Mean Platelet Volume 12.1 fL (7.4-10.4); Monocytes # 1.1 10^3/uL (0.2-0.9); Monocytes % 8.2 %; Neutrophils # 10.19 10^3/uL (1.8-7.7); Neutrophils % 77.8 %; Nucleated Red Blood Cells % 0 %; Platelet Count 315 10^3/cmm (130-400); Red Blood Count 3.38 10^6/uL (4.1-5.3); Red Cell Distribution Width 17.3 % (12.1-15.1); White Blood Count 13.1 10^3/uL (4.0-10.0)
[2019-11-28 05:23] LABS: Add Urine Culture? Yes; Add Urine Microscopic? YES; Bacteria Urine 1+; Bilirubin Urine Neg (NEGATIVE); Blood Urine 3+ (Negative); Glucose Urine UA Norm (Normal); Ketones Urine Negative (Negative); Leukocyte Esterase Urine 2+ (Negative); Nitrate Urine Negative (Negative); Protein Urine Trace (Negative); RBC Urine 0-4 /hpf (0-2); Squamous Epithelial Cell Urine 0-4 (0-5); Urine Appearance Clear (CLEAR); Urine Color Yellow (Yellow); Urobilinogen Urine Norm (Negative); pH Urine 5 (5-7)
[2019-11-28 05:32] LABS: Alanine Aminotransferase 25 U/L (0-33); Albumin Level 2.8 g/dL (3.5-5.2); Alkaline Phosphatase 55 IU/L (35-105); Anion Gap 14.7 (5-19); Aspartate Amino Transferase 46 U/L (0-32); Calcium 7.3 mg/dL (8.5-10.5); Carbon Dioxide 19 mmol/L (22-29); Chloride 110 mmol/L (98-107); Globulin 2.7 g/dL (1.3-4.6); Glucose 293 mg/dL (65-115); Magnesium 2.6 mg/dL (1.7-2.3); Osmolality Calculated 303 mOsm/kg (285-295); Phosphorus 4.1 mg/dL (2.5-4.5); Sodium 141 mmol/L (136-145); Total Bilirubin 0.3 mg/dL (0.15-1.2); Total Protein 5.5 g/dL (6.6-8.7)
[2019-11-28 05:38] LABS: Blood Urea Nitrogen 82 mg/dL (8-23); Potassium 2.7 mmol/L (3.5-5.1)
--- NOTE | 2019-11-28 06:00 | XR_ITS ---
WS: [id number] KUB, portable supine, 11/28/2019 Clinical Data: ileus Comparison: CT abdomen and pelvis, 11/27/2019 Findings: The massive dilatation of the colon remains the same. No definite small bowel dilatation is seen. The re are no abnormal intra-abdominal masses . Vascular calcifications are seen. Degenerative changes of the lumbar vertebral bodies with a slight l evoscoliosis is present. XR/XR KUB portable [id number] Impression: No change in massive dilatation of the colon.
[2019-11-28] MEDS: potassium chloride premix 40 MEQ/100 ML PREMIX 25 MEQ IV ×2 (06:04→09:08)
[2019-11-28 06:52] LABS: Glucose Point of Care 278 mg/dL (70-110)
[2019-11-28] MEDS: aspirin 81 mg EC Tablet PO (09:08)
[2019-11-28] MEDS: cefTRIAXone 1,000 MG in sodium chloride 0.9% (plus) 50 ML 100 MG IV (09:08)
[2019-11-28] MEDS: clopidogrel 75 mg Tablet PO (09:09)
[2019-11-28] MEDS: losartan 50 mg Tablet 100 MG PO (09:09)
[2019-11-28] MEDS: dilTIAZem ER (24HR) 240 mg Capsule PO (09:09)
[2019-11-28] MEDS: hydroCHLOROthiazide 25 mg Tablet PO (09:10)
[2019-11-28] MEDS: levothyroxine 100 mcg Tablet PO (09:10)
[2019-11-28] MEDS: potassium chloride ER 10 mEq Tablet 40 MEQ PO (09:10)
[2019-11-28 11:14] LABS: Glucose Point of Care 316 mg/dL (70-110)
[2019-11-28] MEDS: sodium chloride 0.9% 1,000 ML 75 ML IV (11:16)
[2019-11-28 12:28] LABS: Anion Gap 15.4 (5-19); Calcium 7.7 mg/dL (8.5-10.5); Carbon Dioxide 19 mmol/L (22-29); Chloride 109 mmol/L (98-107); Glucose 279 mg/dL (65-115); Osmolality Calculated 300 mOsm/kg (285-295); Potassium 3.4 mmol/L (3.5-5.1); Sodium 140 mmol/L (136-145)
[2019-11-28 12:34] LABS: Blood Urea Nitrogen 88 mg/dL (8-23)
--- NOTE | 2019-11-28 12:55 | PM.PN ---
Subjective Subjective: Interval history: This morning patient is much more vocal, she answers a significant portion of the questions appropriate, states that she is doing okay, had some abdominal pain complaints, she is moving her right upper right lower extremities more compared to yesterday, she still is following commands, but is much more vocal today, this morning her abdomen is still quite distended, about the same compared to yesterday, remains normotensive, no significant tachycardia, no fever events, she did have one episode of small bowel movement last night, Vitals/I&O/Wt Last Vital Signs Temp 97.6 F 11/28/19 11:05 Pulse 93 11/28/19 11:05 Resp 18 11/28/19 11:05 BP 108/60 11/28/19 11:05 Pulse Ox 98 11/28/19 11:05 11/27/19 11/28/19 11/28/19 22:59 06:59 14:59 Intake Total 1221.25 / 1221.25 Output Total 200 / 200 Balance -200 / -200 1221.25 / 1221.25 Weight last 48 hrs Weight 80.739 kg Physical Exam Narrative: EXAM NARRATIVE: Does follow commands such as wiggling her toes, squeezing my fingers on the left side, smiling, but does not answer questions Const: COMMON NORMALS: no acute distress and alert GENERAL APPEARANCE: cooperative and comfortable ORIENTATION/CONSCIOUSNESS: Yes oriented to person; not oriented to place and not oriented to time HENMT: COMMON NORMALS: normocephalic HEAD & SCALP: normocephalic Eye: COMMON NORMALS: Equal, round and reactive pupils present and EOMs intact bilaterally GENERAL EYE: appearance normal, both eyes and all related structures PUPIL: Yes Equal, round and reactive pupils present Neck/C-Spine: COMMON NORMALS: no JVD Lymph: LYMPHATIC: no lymphadenopathy noted Chest: OTHER: Has a right port in place Resp: COMMON NORMALS: normal respiratory effort, No retractions, No use of accessory muscles and clear to auscultation bilaterally AUSCULTATION: clear to auscultation bilaterally Cardio: COMMON NORMALS: no JVD, regular rate, regular rhythm, S1 normal heart sound present and S2 normal heart sound present RATE: regular rate RHYTHM: regular rhythm HEART SOUNDS: S1 normal heart sound present and S2 normal heart sound present GI: COMMON NORMALS: non-tender, no masses and no bruits INSPECTION: Yes normal to inspection and Yes abdominal distension AUSCULTATION: Yes Hypoactive bowel sounds present PALPATION: No Tenderness to palpation present (GI), No Guarding due to palpation present (GI), No Rigid due to palpation and No Rebound tenderness present PERCUSSION: tympanic to percussion Extremity: COMMON NORMALS: capillary refill normal, no clubbing, cyanosis or edema, no calf tenderness and no pedal edema OTHER: Right lower extremity, wrapped, amputation of second third digit, wound VAC in place Neuro: SENSORIUM/ORIENTATION: Yes alert, Yes oriented to person, No oriented to place and No oriented to time OTHER: Does follow commands such as moving her left upper extremity, wiggling her toes of the left side, 1 right upper extremity strength 1 out of 5 compared to 5 out of 5 on the left, left lower extremity strength 1 out of 5 compared to 5 and 5 on the left, follows commands is a smiling, closing her eyes,, much more alert and awake this morning Psych: COMMON NORMALS: mental status grossly normal Urinary Catheter Management^: Field: Cath Placed During This Visit: no Urethral Indwelling: Yes Reason for Continuing Indwelling Catheter: Acute Urinary Retention or Obstruction Data : 11/28/19 04:41 11/28/19 11:47 Micro: Microbiology 11/27/19 19:55 Blood Culture - Preliminary Blood SPECIMEN COLLECTED 11/27/19 19:52 Blood Culture - Preliminary Blood SPECIMEN COLLECTED A&P Assessment and plan (1) Toxic encephalopathy: -Multifactorial related to hypokalemia, uremia, ileus, previous stroke, possible UTI -Of note from patient's ER visit on 11/10/2019, her blood cultures grew group A strep pyogenes -Chest x-ray no focal pneumonia -White blood cell count 13.1, pro-Aren 0.25 -Follow urine cultures, blood cultures -Started on Rocephin for UTI -Patient is on daptomycin for left lower extremity osteomyelitis, CPK 897, hold for now given concerns for [place] and rhabdo -We will also get a C. difficile given ileus -Neurochecks, aspiration precautions, seizure precautions will keep patient n.p.o. -Start gentle hydration given elevated BNP, although lungs no evidence of pneumonia or pallor edema chest x-ray, lungs sound clear to auscultation Status: Acute (2) Ileus: -CT scan shows:The colon is diffusely to enlarged and air-filled measuring up to 11 cm in the cecal region. Motion artifact degrades theimages. -KUB this morning continues to show significant colonic dilatation -She did have a small bowel movement overnight -This morning bowel sounds have been decreased,, no guarding, no rebound, no rigidity -Ileus likely secondary to hypokalemia, patient is receiving potassium replacement therapy -But I reviewed the imaging, there could be a possibility that this is a small bowel obstruction but no definitive transition point seen, or even toxic megacolon -Serial abdominal exams -We will get a C. difficile -Hold daptomycin -Keep patient n.p.o. -Gentle IV hydration -I have consulted Dr. Aviles from surgery Status: Acute (3) Hypokalemia: -Likely secondary dehydration, poor oral intake -Repeat potassium 3.4 -Recheck potassium this afternoon -So far has received 120 mEq of potassium Status: Acute (4) Acute kidney injury: -Likely sec to dehydration, poor oral intake, gentle IV hydration -BUN elevated to 88, creatinine increased to 3.0 -Patient does have uremia, but no evidence of severe uremic syndrome -CT scan of the abdomen and pelvis did not show any obstructive uropathy -Has evidence of acute renal failure, urine output minimal at 200 -We will get renal ultrasound, urine sodium, urine creatinine, urine eosinophils -Continue gentle hydration, monitor kidney function, monitor urine output, hold all nephrotoxic agents Status: Acute (5) Atrial fibrillation: Continue telemetry monitoring Patient's creatinine clearance is less than 25, stop Eliquis Start on heparin drip Status: Acute (6) Peripheral vascular disease: -Status post right femoral stent -Status post left fem pop bypass -On aspirin, statin, Plavix,cilostazol resolved Status: Acute (7) Insulin dependent type 2 diabetes mellitus: -Currently patient n.p.o. -Hold home insulin -Low-dose sliding scale Status: Acute (8) History of amputation of lesser toe of left foot: Status: Inactive (9) Hypertension: -Continue home medication -Hold nephrotoxic agents Status: Acute (10) Hyperlipidemia: -Continue home medication Status: Acute (11) Hypothyroid: -Check TSH,, continue home medication Status: Acute Additional A&P Information Patient's at bedside, states that patient is full code Attestations Medical Necessity Statement*: Patient requires hospitalization for ileus, uremia, hyperkalemia, acute kidney injury, toxic encephalopathy, UTI Coding Level of Care Code 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
--- NOTE | 2019-11-28 12:56 | PC.CHAP ---
Pastoral Care Encounter/Spiritual Assessment Type of Contact [] Declined construction management instructor visit [] Patient/Family/Request visit [] Outpatient visit [] Follow-up visit [] Physician referral [] Code/Alert [] Routine visit [] Staff referral [] Actively dying [] Patient sleeping [] Family support [] [] Out of room [] Palliative care [] [] Receiving care in room [] Pre-surgical visit [] Trauma [] Long length of stay [] ICU visit [X] Other: PT HAS BEEN PLACED IN ISOLATION Relational/Emotional Strength [] Patient feels connected with others/family/visitors/staff [] Distress [] Loneliness/isolation [] Abandonment Spirituality of Patient [] Person of Genesis [] Attends Restoration of their Genesis [] Believes in Prayer [] Reads Bible or Adventist materials [] There are Spiritual issues to be addressed Field Tax Auditor Interventions [] Prayer [] Active listening [] Non-anxious presence [] Spiritual/emotional support [] Crisis/trauma care [] Spiritual counseling [] Bereavement support [] Provided bereavement packet [] Provided Bible/devotional materials [] Provided toy/stuffed animal, coloring book to patient or family member [] Provided Communion [] Anointing/[place]el [] Salvation [] Completed spiritual assessment [] Other: Impact on Illness or Injury [] Angry [] Fearful [] Anxious [] Often cries [] Exhaustion [] Unable to work [] Unable to attend roman catholic [] Unable to walk/stand [] Unable to read [] Unable to drive [] Unable to eat/drink [] Unable to sleep [] Unable to be with family [] Patient intubated [] Other: Summary PATIENT HAS BEEN PLACED IN ISOLATION SO NO VISIT ALLOWED. Time spent with patient 2 CUSTOMS AND IMMIGRATION OFFICER NETTIE ABDULLAHI
--- NOTE | 2019-11-28 13:07 | US_ITS ---
WS: [id number] Bilateral renal ultrasound, 11/28/2019 Clinical Data: [place] Comparison: None. Findings: The right kidney measures 9.8 cm x 6.6 cm x 5.3 cm and the left kidney is 10.3 cm x 4.5 cm x 5.9 cm. There are no cysts, masses or hydronephrosis. The renal cortical margins are normal. No renal calculi are seen. The abdominal aorta was obscured by overlying bowel gas. The bladder was scanned and there was a Field catheter in place. US/US renal BI* [id number] Impression: Negative bilateral renal ultrasound.
[2019-11-28] MEDS: heparin drip 25,000 UNIT/500 ML PREMIX 23 UNIT IV (13:39)
[2019-11-28] MEDS: heparin 5,000 unit/mL INJ 1 mL IV (13:50)
[2019-11-28 14:39] LABS: Urine Creatinine 113 mg/dL (28-217)
[2019-11-28 14:47] LABS: Urine Random Sodium 11 mmol/L
--- NOTE | 2019-11-28 15:27 | P.CONIM_ITS ---
Providers/Reason For Consult Consulting Physican/Specialty*: General Surgery Sea Aviles MD Reason for Consult*: Diffuse colonic distention. Attending Physician: Lexa Penaloza MD Primary Care Provider: Aldo Goodrich MD History of Present Illness History of Present Illness Marissa Lara is a 79 year old female recently admitted from a nursing facility following a recent CVA for abdominal distention, change in mental status, acute kidney injury, etc. I was asked to evaluate the patient for her diffuse colon distention. She is difficult to get any meaningful history from. She will admit that her abdomen is very distended. She cannot member the last time she had a bowel movement but by reports she had a very small bowel movement last night. She does not know if she is passing any flatus. She had a CAT scan done yesterday which showed impressive pancolonic distention. She had a KUB done today which again showed massive colonic distention. Review of Systems General: Reports: ROS unobtainable due to mental status Meds/Allergies Home Medications and Allergies Home Medications Medication Instructions Recorded Confirmed Last Taken Type aspirin [Aspir-81] 81 mg PO DAILY 11/10/19 11/27/19 11/27/19 History cilostazol 100 mg PO BIDAC 11/10/19 11/27/19 11/27/19 History clopidogrel 75 mg PO DAILY 11/10/19 11/27/19 11/27/19 History diltiazem HCl 240 mg PO DAILY 11/10/19 11/27/19 11/27/19 History levothyroxine 100 mcg PO DAILY 11/10/19 11/27/19 11/27/19 History losartan-hydrochlorothiazide 1 tab PO DAILY 11/10/19 11/27/19 11/27/19 History naproxen sodium [Aleve] 440 mg PO DAILY PRN 11/10/19 11/27/19 Unknown History Dulcolax (bisacodyl) 10 mg IL PRN 11/27/19 11/27/19 Unknown History acetaminophen 650 mg PO Q6H PRN 11/27/19 11/27/19 Unknown History albuterol sulfate 2.5 mg INHALATION Q2H PRN 11/27/19 11/27/19 Unknown History apixaban [Eliquis] 5 mg PO BID 11/27/19 11/27/19 11/27/19 History atorvastatin 40 mg PO BEDTIME 11/27/19 11/27/19 11/26/19 History bisacodyl 10 mg IL Q12H PRN 11/27/19 11/27/19 Unknown History daptomycin 660 mg IV QAM 11/27/19 11/27/19 11/27/19 07:52 History insulin aspart U-100 [Novolog 5 unit SUBCUT TID 11/27/19 11/27/19 11/27/19 10:55 History U-100 Insulin aspart] insulin aspart U-100 [Novolog See Rx Instructions .ROUTE .COMPLEX 11/27/19 11/27/19 11/27/19 10:55 History U-100 Insulin aspart] 8 units insulin glargine [Lantus U-100 30 unit SUBCUT BEDTIME 11/27/19 11/27/19 Unknown History Insulin] magnesium hydroxide [Milk of 30 ml PO DAILY PRN 11/27/19 11/27/19 Unknown History Magnesia] sodium phosphates [Fleet Enema] 118 ml [place] DAILY PRN 11/27/19 11/27/19 Unknown Hi story Allergies Allergy/AdvReac Type Severity Reaction Status Date / Time No Known Allergies Allergy Verified 11/27/19 16:00 Current Medications Current Medications Generic Name Dose Route Start Last Admin Trade Name Freq PRN Reason Stop Dose Admin Aspirin 81 mg 11/28/19 09:00 11/28/19 09:08 Aspirin Ec PO 81 mg DAILY FERNANDO Administration Atorvastatin Calcium 40 mg 11/27/19 21:00 11/27/19 22:12 Lipitor PO Not Given BEDTIME [facility] Cilostazol 100 mg 11/28/19 07:00 11/28/19 05:20 Pletal PO Not Given BIDAC [facility] Clopidogrel Bisulfate 75 mg 11/28/19 09:00 11/28/19 09:09 Plavix PO 75 mg DAILY FERNANDO Administration Diltiazem HCl 240 mg 11/28/19 09:00 11/28/19 09:09 Cardizem Cd (24hr) PO 240 mg DAILY FERNANDO Administration Heparin Sodium (Beef Lung) 0 unit 11/28/19 12:53 11/28/19 13:50 Heparin IV 4,100 unit PRN PRN Administration Heparin weight-base protocol Protocol Hydrochlorothiazide 25 mg 11/28/19 09:00 11/28/19 09:10 Hctz PO 25 mg DAILY FERNANDO Administration Sodium Chloride 1,000 mls @ 75 mls/hr 11/27/19 19:20 11/28/19 11:16 Sodium Chloride 0.9% IV 75 mls/hr .[id number] FERNANDO Administration Ceftriaxone Sodium 1,000 mg/ 50 mls @ 100 mls/hr 11/28/19 08:30 11/28/19 09:08 Sodium Chloride IV 100 mls/hr Q24H FERNANDO Administration Protocol Heparin Sodium/Sodium Chloride 25,000 unit in 500 mls @ 0 mls/hr 11/28/19 13:00 11/28/19 13:39 Heparin Drip IV 14.24 unit/kg/hr .Q0M FERNANDO 23 mls/hr Administration Protocol Per Protocol Insulin Aspart 0 unit 11/28/19 08:00 11/28/19 11:17 Novolog SUBCUT 10 unit TIDWM FERNANDO Administration Protocol Levothyroxine Sodium 100 mcg 11/28/19 09:00 11/28/19 09:10 Synthroid PO 100 mcg DAILY FERNANDO Administration Losartan Potassium 100 mg 11/28/19 09:00 11/28/19 09:09 Cozaar PO 100 mg DAILY FERNANDO Administration Potassium Chloride 40 meq 11/28/19 09:00 11/28/19 09:10 Klor-Con 10 PO 40 meq DAILY FERNANDO Administration PFSH Acute PFSH: Medical History (Updated 11/28/19 @ 15:32 by Sea Aviles MD) Diabetes mellitus Femoral-popliteal bypass graft occlusion, left History of amputation of toe History of appendicitis History of diabetes mellitus History of thyroid disease Hyperlipidemia Hypertension Hypertension Peripheral artery disease Surgical History (Updated 11/27/19 @ 18:46 by Lexa Penaloza MD) History of amputation of lesser toe of left foot History of hysterectomy Social History Smoking and tobacco status: never smoked Alcohol intake: never Vitals/I&O/Wt Last Vital Signs Temp 97.6 F 11/28/19 11:05 Pulse 93 11/28/19 11:05 Resp 18 11/28/19 11:05 BP 108/60 11/28/19 11:05 Pulse Ox 98 11/28/19 11:05 11/28/19 11/28/19 11/28/19 06:59 14:59 22:59 Intake Total 1221.25 / 1221.25 Output Total 200 / 200 Balance -200 / -200 1221.25 / 1221.25 Weight last 48 hrs Weight 178 lb Physical Exam Narrative: EXAM NARRATIVE: The patient was encountered in her hospital room. She is resting but is arousable but still does not communicate very readily. The pupils seem equal. No carotid bruits are heard. Lungs are clear anteriorly. The heart seems regular. She has a right subclavian venous catheter in place. The abdomen is diffusely distended and somewhat tense. Bowel sounds are somewhat high-pitched. She does not seem to have much in the way of tenderness to palpation, however. She has a dressing and wound VAC on the left lower extremity with some toes missing. Urinary Catheter Management^: Field: Cath Placed During This Visit: no Urethral Indwelling: Yes Reason for Continuing Indwelling Catheter: Acute Urinary Retention or Obstruction Data Micro: Micro: Microbiology 11/27/19 19:55 Blood Culture - Pr eliminary Blood SPECIMEN [facility] 11/27/19 19:52 Blood Culture - Pr eliminary Blood SPECIMEN [facility] Imaging^: KUB: Radiologist's impression: KUB 11/28/2019 impression: No change in massive dilatation of the colon. CT Abd/Pel: Radiologist's impression: CT abdomen/pelvis 11/27/2019 iMPRESSION: 1. Diffuse anasarca. 2. Entire colon is air-filled and enlarged measuring up to 11 cm. Findings may suggest ileus. Clinical correlation. A&P Assessment and plan (1) Colon distention: Given the patient's recent CVA, inactivity, and medical issues, I was prepared to suggest that this was all ileus, but she does have some high-pitched bowel sounds. It makes me wonder if she has enough distention that she is having some difficulty moving all of the air through her colon, although she does have air all the way into the rectum. I discussed the situation with the patient and told her that a decompressive colonoscopy is probably the best way to try to evacuate this the fastest. I made her aware that it could recur. We also discussed the risks involved in colonoscopy. She indicated that she was willing to proceed. Not knowing if everything I was telling her was sinking in, I did call her and discussed the procedure with him, as well. He is in favor of us proceeding today. The patient has been n.p.o. I will make arrangements for a decompressive colonoscopy today. Status: Acute Consult Attestations Medical Necessity Statement: See admitting service's notation. Coding Level of Care Code Acute Tannery Worker for Rosio Su Diagnoses Colon distention K63.89
[2019-11-28 15:30] LABS: Eosinophil Urine No Eosinophils Seen; Urine Eosinophil Count 0 (0-0)
--- NOTE | 2019-11-28 16:06 | ANES.PREANE2 ---
Pre-Anesthetic Assessment Pre-Anesthetic Assessment: Height/Weight: Height 1.68 m Weight 80.739 kg Temp Pulse Resp BP Pulse Ox 97.6 F 78 17 103/58 99 11/28/19 15:35 11/28/19 15:35 11/28/19 15:35 11/28/19 15:35 11/28/19 15:35 Proposed Procedure: Operation Date: 11/28/19 15:55 Proposed Procedures p Colonoscopy(Left) - Sea Aviles MD Familial anesthetic complications: none Last intake: NPO > 8 hrs Social: Social History: No alcohol and No tobacco Exam: Pre-Anes Outpt Exam: alert, oriented x 3, clear to auscultation bilaterally and regular rate & rhythm Airway: Cervical ROM: WNL MP: 4 Dentition: Chipped and Loose CV/HEM: CV/HEM: Afib, HTN and PVD : Comments: [place] Metabolic: Metabolic: DM, Hyperlipidemia and Thyroid Neuropsych: Neuropsych: CVA Anesthetic Plan: ASA status: 4 Anesthesia: MAC Risk of > 500 ml blood loss (7ml/kg in children): No Meds/Allergies Current Medications: Current Medications Generic Name Dose Route Start Last Admin Trade Name Freq PRN Reason Stop Dose Admin Aspirin 81 mg 11/28/19 09:00 11/28/19 09:08 Aspirin Ec PO 81 mg DAILY FERNANDO Administration Atorvastatin Calci um 40 mg 11/27/19 21:00 11/27/19 22:12 Lipitor PO Not Given BEDTIME FERNANDO Cilostazol 100 mg 11/28/19 07:00 11/28/19 05:20 Pletal PO Not Given BIDAC FERNANDO Clopidogrel Bisulf ate 75 mg 11/28/19 09:00 11/28/19 09:09 Plavix PO 75 mg DAILY FERNANDO Administration Diltiazem HCl 240 mg 11/28/19 09:00 11/28/19 09:09 Cardizem Cd (24h r) PO 240 mg DAILY FERNANDO Administration Heparin Sodium (Be ef Lung) 0 unit 11/28/19 12:53 11/28/19 13:50 Heparin IV 4,100 unit PRN PRN Administration Heparin weight-ba se protocol Protocol Hydrochlorothiazid e 25 mg 11/28/19 09:00 11/28/19 09:10 Hctz PO 25 mg DAILY FERNANDO Administration Sodium Chloride 1,000 mls @ 75 ml s/hr 11/27/19 19:20 11/28/19 11:16 Sodium Chloride 0.9% IV 75 mls/hr .[id number] FERNANDO Administration Ceftriaxone Sodium 1,000 mg/ 50 mls @ 100 mls/ hr 11/28/19 08:30 11/28/19 09:08 Sodium Chloride IV 100 mls/hr Q24H FERNANDO Administration Protocol Heparin Sodium/Sod ium Chloride 25,000 unit in 50 0 mls @ 0 mls/hr 11/28/19 13:00 11/28/19 13:39 Heparin Drip IV 14.24 unit/kg/hr .Q0M FERNANDO 23 mls/hr Administration Protocol Per Protocol Insulin Aspart 0 unit 11/28/19 08:00 11/28/19 11:17 Novolog SUBCUT 10 unit TIDWM FERNANDO Administration Protocol Levothyroxine Sodi um 100 mcg 11/28/19 09:00 11/28/19 09:10 Synthroid PO 100 mcg DAILY FERNANDO Administration Losartan Potassium 100 mg 11/28/19 09:00 11/28/19 09:09 Cozaar PO 100 mg DAILY FERNANDO Administration Potassium Chloride 40 meq 11/28/19 09:00 11/28/19 09:10 Klor-Con 10 PO 40 meq DAILY FERNANDO Administration PFSH Anesthesia PFSH: Medical History (Updated 11/28/19 @ 15:32 by Sea Aviles MD) Diabetes mellitus Femoral-popliteal bypass graft occlusion, left History of amputation of toe History of appendicitis History of diabetes mellitus History of thyroid disease Hyperlipidemia Hypertension Hypertension Peripheral artery disease Surgical History (Updated 11/27/19 @ 18:46 by Lexa Penaloza MD) History of amputation of lesser toe of left foot History of hysterectomy Social History Smoking and tobacco status: never smoked Alcohol intake: never Data Anesthesia CBC & Chem 7: 11/28/19 04:41 11/28/19 11:47 Other Labs: Laboratory Results - last 48 hr 11/27/19 11/27/19 11/27/19 16:23 16:23 16:23 WBC 13.1 H RBC 3.65 L Hgb 10.5 L Hct 32.5 L MCV 89.0 MCH 28.8 MCHC 32.3 RDW 17.1 H Plt Count 364 MPV 11.7 H Neut % (Auto) 79.3 Lymph % (Auto) 11.2 Dickenson % (Auto) 8.9 Eos % (Auto) 0.1 Baso % (Auto) 0.1 Neut # (Auto) 10.39 H Lymph # (Auto) 1.5 Dickenson # (Auto) 1.2 H Eos # (Auto) 0.0 Baso # (Auto) 0.0 Nucleated RBC % (auto) 0 Nucleated RBCs # 0.0 ESR PT INR Sodium 139 Potassium 2.7 L* Chloride 105 Carbon Dioxide 20 L Anion Gap 16.7 BUN 80 H Creatinine 2.8 H GFR Calculation Not Reportable Glucose 313 H POC Glucose Estimat Average Glucose Hemoglobin A1c Calculated Osmolality 300 H Calcium 7.6 L Phosphorus 3.9 Magnesium 2.6 H Total Bilirubin 0.4 AST 46 H ALT 23 Alkaline Phosphatase 62 Creatine Kinase C-Reactive Protein 25.6 H NT-Pro-B Natriuret Pep 21792 H Total Protein 5.5 L Albumin 2.9 L Globulin 2.6 Triglycerides Cholesterol LDL Cholesterol, Calc HDL Cholesterol LDL/HDL Ratio Cholesterol/HDL Ratio Procalcitonin TSH Urine Color Urine Appearance Urine pH Ur Specific Dingess Urine Protein Urine Glucose (UA) Urine Ketones Urine Blood Urine Nitrate Urine Bilirubin Urine Urobilinogen Ur Leukocyte Esterase Urine RBC Urine WBC Ur Eosinophil Smear Ur Squamous Epith Cells Amorphous Sediment Urine Bacteria Urine Yeast Urine Eosinophils Ur Random Sodium Urine Creatinine 11/27/19 11/27/19 11/27/19 16:23 16:23 16:23 WBC RBC Hgb Hct MCV MCH MCHC RDW Plt Count MPV Neut % (Auto) Lymph % (Auto) Dickenson % (Auto) Eos % (Auto) Baso % (Auto) Neut # (Auto) Lymph # (Auto) Dickenson # (Auto) Eos # (Auto) Baso # (Auto) Nucleated RBC % (auto) Nucleated RBCs # ESR 13 PT INR Sodium Potassium Chloride Carbon Dioxide Anion Gap BUN Creatinine GFR Calculation Glucose POC Glucose Estimat Average Glucose 160 Hemoglobin A1c 7.2 H Calculated Osmolality Calcium Phosphorus Magnesium Total Bilirubin AST ALT Alkaline Phosphatase Creatine Kinase 897 H* C-Reactive Protein NT-Pro-B Natriuret Pep Total Protein Albumin Globulin Triglycerides 121 Cholesterol 128 LDL Cholesterol, Calc 69 HDL Cholesterol 35 L LDL/HDL Ratio 1.97 Cholesterol/HDL Ratio 3.66 Procalcitonin 0.25 TSH 1.97 Urine Color Urine Appearance Urine pH Ur Specific Dingess Urine Protein Urine Glucose (UA) Urine Ketones Urine Blood Urine Nitrate Urine Bilirubin Urine Urobilinogen Ur Leukocyte Esterase Urine RBC Urine WBC Ur Eosinophil Smear Ur Squamous Epith Cells Amorphous Sediment Urine Bacteria Urine Yeast Urine Eosinophils Ur Random Sodium Urine Creatinine 11/27/19 11/28/19 11/28/19 16:23 02:58 04:41 WBC 13.1 H RBC 3.38 L Hgb 10.0 L Hct 30.3 L MCV 89.6 MCH 29.6 MCHC 33.0 RDW 17.3 H Plt Count 315 MPV 12.1 H Neut % (Auto) 77.8 Lymph % (Auto) 13.4 Dickenson % (Auto) 8.2 Eos % (Auto) 0.0 Baso % (Auto) 0.1 Neut # (Auto) 10.19 H Lymph # (Auto) 1.8 Dickenson # (Auto) 1.1 H Eos # (Auto) 0.0 Baso # (Auto) 0.0 Nucleated RBC % (auto) 0 Nucleated RBCs # 0.0 ESR PT 23.40 H INR 2.00 H Sodium Potassium Chloride Carbon Dioxide Anion Gap BUN Creatinine GFR Calculation Glucose POC Glucose Estimat Average Glucose Hemoglobin A1c Calculated Osmolality Calcium Phosphorus Magnesium Total Bilirubin AST ALT Alkaline Phosphatase Creatine Kinase C-Reactive Protein NT-Pro-B Natriuret Pep Total Protein Albumin Globulin Triglycerides Cholesterol LDL Cholesterol, Calc HDL Cholesterol LDL/HDL Ratio Cholesterol/HDL Ratio Procalcitonin TSH Urine Color Yellow Urine Appearance Clear Urine pH 5 Ur Specific Dingess 1.020 Urine Protein Trace Urine Glucose (UA) Norm Urine Ketones Negative Urine Blood 3+ H Urine Nitrate Negative Urine Bilirubin Neg Urine Urobilinogen Norm Ur Leukocyte Esterase 2+ H Urine RBC 0-4 H Urine WBC 10-15 H Ur Eosinophil Smear Ur Squamous Epith Cells 0-4 H Amorphous Sediment Not Reportable Urine Bacteria 1+ H Urine Yeast 3+ H Urine Eosinophils Ur Random Sodium Urine Creatinine 11/28/19 11/28/19 11/28/19 04:41 06:48 11:12 WBC RBC Hgb Hct MCV MCH MCHC RDW Plt Count MPV Neut % (Auto) Lymph % (Auto) Dickenson % (Auto) Eos % (Auto) Baso % (Auto) Neut # (Auto) Lymph # (Auto) Dickenson # (Auto) Eos # (Auto) Baso # (Auto) Nucleated RBC % (auto) Nucleated RBCs # ESR PT INR Sodium 141 Potassium 2.7 L* Chloride 110 H Carbon Dioxide 19 L Anion Gap 14.7 BUN 82 H* Creatinine 2.7 H GFR Calculation Not Reportable Glucose 293 H POC Glucose 278 316 Estimat Average Glucose Hemoglobin A1c Calculated Osmolality 303 H Calcium 7.3 L Phosphorus 4.1 Magnesium 2.6 H Total Bilirubin 0.3 AST 46 H ALT 25 Alkaline Phosphatase 55 Creatine Kinase C-Reactive Protein NT-Pro-B Natriuret Pep Total Protein 5.5 L Albumin 2.8 L Globulin 2.7 Triglycerides Cholesterol LDL Cholesterol, Calc HDL Cholesterol LDL/HDL Ratio Cholesterol/HDL Ratio Procalcitonin TSH Urine Color Urine Appearance Urine pH Ur Specific [place] Urine Protein Urine Glucose (UA) Urine Ketones Urine Blood Urine Nitrate Urine Bilirubin Urine Urobilinogen Ur Leukocyte Esterase Urine RBC Urine WBC Ur Eosinophil Smear Ur Squamous Epith Cells Amorphous Sediment Urine Bacteria Urine Yeast Urine Eosinophils Ur Random Sodium Urine Creatinine 11/28/19 11/28/19 11/28/19 11:47 14:10 14:10 WBC RBC Hgb Hct MCV MCH MCHC RDW Plt Count MPV Neut % (Auto) Lymph % (Auto) Dickenson % (Auto) Eos % (Auto) Baso % (Auto) Neut # (Auto) Lymph # (Auto) Dickenson # (Auto) Eos # (Auto) Baso # (Auto) Nucleated RBC % (auto) Nucleated RBCs # ESR PT INR Sodium 140 Potassium 3.4 L Chloride 109 H Carbon Dioxide 19 L Anion Gap 15.4 BUN 88 H* Creatinine 3.0 H GFR Calculation Not Reportable Glucose 279 H POC Glucose Estimat Average Glucose Hemoglobin A1c Calculated Osmolality 300 H Calcium 7.7 L Phosphorus Magnesium Total Bilirubin AST ALT Alkaline Phosphatase Creatine Kinase C-Reactive Protein NT-Pro-B Natriuret Pep Total Protein Albumin Globulin Triglycerides Cholesterol LDL Cholesterol, Calc HDL Cholesterol LDL/HDL Ratio Cholesterol/HDL Ratio Procalcitonin TSH Urine Color Urine Appearance Urine pH Ur Specific [place] Urine Protein Urine Glucose (UA) Urine Ketones Urine Blood Urine Nitrate Urine Bilirubin Urine Urobilinogen Ur Leukocyte Esterase Urine RBC Urine WBC Ur Eosinophil Smear 0 Ur Squamous Epith Cells Amorphous Sediment Urine Bacteria Urine Yeast Urine Eosinophils No eosinophils seen Ur Random Sodium 11 Urine Creatinine 113 Micro: Microbiology 11/27/19 19:55 Blood Culture - Preliminary Blood SPECIMEN COLLECTED 11/27/19 19:52 Blood Culture - Preliminary Blood SPECIMEN COLLECTED Cardiac Studies: No Data to Display
[2019-11-28] MEDS: sodium chloride 0.9% 1,000 ML 30 ML IV (16:20)
--- NOTE | 2019-11-28 16:51 | SUR.OPER ---
5627 First scope clogged and unable to finish procedure. Second colonoscope used per Dr. Aviles request.
--- NOTE | 2019-11-28 17:29 | SUR.PHASEI ---
1729 Decompressive colonoscopy completed and patient recovered. Report called to ELLA Davis on . VSS.
[2019-11-28 18:51] LABS: Glucose Point of Care 156 mg/dL (70-110)
[2019-11-28 19:17] LABS: Alanine Aminotransferase 31 U/L (0-33); Albumin Level 2.8 g/dL (3.5-5.2); Alkaline Phosphatase 53 IU/L (35-105); Aspartate Amino Transferase 56 U/L (0-32); Calcium 7.2 mg/dL (8.5-10.5); Carbon Dioxide 17 mmol/L (22-29); Chloride 112 mmol/L (98-107); Globulin 2.6 g/dL (1.3-4.6); Glucose 164 mg/dL (65-115); Magnesium 2.6 mg/dL (1.7-2.3); Osmolality Calculated 298 mOsm/kg (285-295); Phosphorus 3.6 mg/dL (2.5-4.5); Sodium 142 mmol/L (136-145); Total Bilirubin 0.2 mg/dL (0.15-1.2); Total Protein 5.4 g/dL (6.6-8.7)
--- NOTE | 2019-11-28 19:20 | USCV_ITS ---
Marissa Lara Age: 79 Gender: F : 1940 Exam Date: 11/28/2019 06:52 Ordering Phys: Lexa Penaloza MD Technologist: Mono Singh [place] [facility] [place]: CHF BP: 126 / 56 HR: 94 Rhythm: Sinus Technical Quality: Very technically difficult study MEASUREMENTS (Male / Female) Normal Values 2D ECHO LV Diastolic Diameter PLAX 2.1 cm 4.2 - 5.9 / 3.9 - 5.3 cm LV Systolic Diameter PLAX 1.6 cm IVS Diastolic Thickness 0.9 cm 0.6 - 1.0 / 0.6 - 0.9 cm IVS Systolic Thickness 1.1 cm LVPW Diastolic Thickness 1.1 cm 0.6 - 1.0 / 0.6 - 0.9 cm LVPW Systolic Thickness 1.2 cm LVOT Diameter 2.0 cm LV Ejection Fraction 2D Teich 50.0 % LV Ejection Fraction MOD 2C 72.4 % LV Ejection Fraction 2C AL 72.6 % LA Diameter 4.1 cm LA Width 4.0 cm LA Height 5.1 cm RA Width 3.8 cm RA Height 4.1 cm Aorta at Sinotubular Diameter 0.9 cm M-MODE LV Diastolic Diameter MM 4.5 cm 4.2 - 5.9 / 3.9 - 5.3 cm LV Systolic Diameter MM 3.1 cm LV Ejection Fraction MM Teich 59.5 % IVS Diastolic Thickness MM 0.9 cm 0.6 - 1.0 / 0.6 - 0.9 cm IVS Systolic Thickness MM 1.3 cm LVPW Diastolic Thickness MM 0.9 cm 0.6 - 1.0 / 0.6 - 0.9 cm LVPW Systolic Thickness MM 1.3 cm RV Diastolic Diameter MM 1.4 cm Aortic Annulus Diameter 2.9 cm LA Ao Ratio MM 1.4 MV E Point Septal Separation 1.2 cm DOPPLER AV Peak Velocity 169.0 cm/s LVOT Peak Velocity 115.0 cm/s AV Area Cont Eq vti 3.6 cm squared AV Area Cont Eq pk 2.2 cm squared MV Area PHT 5.0 cm squared Mitral E to A Ratio 0.5 MV E' Velocity 12.0 cm/s Mitral E to MV E' Ratio 8.1 Mitral E to LV E' Lateral Ratio 6.1 Mitral E to LV E' Septal Ratio 12.0 TR Peak Velocity 194.0 cm/s TR Peak Gradient 15.1 mmHg FINDINGS Left Ventricle Normal left ventricular cavity size. Normal left ventricular systolic function. No regional wall motion abnormalities. Left ventricular ejection fraction is estimated at 55 %. Grade I/IV diastolic dysfunction (abnormal relaxation filling pattern), normal to mildly elevated filling pressures. Right Ventricle Normal right ventricular size. RVSP could not be calculated due to incomplete tricuspid regurgitation velocity profile. Right Atrium The right atrium is normal in size. Left Atrium Mildly increased left atrial size. Mitral Valve Severely thickened mitral valve. Severe mitral annular calcification. No mitral valve stenosis. Trace mitral valve regurgitation. Aortic Valve Moderate aortic valve calcification. No aortic valve stenosis. No aortic valve regurgitation. Tricuspid Valve Structurally normal tricuspid valve without significant stenosis or regurgitation. Pulmonary artery systolic pressure is normal. Pulmonic Valve Structurally normal pulmonic valve without significant stenosis. There is no pulmonic regurgitation. Pericardium Normal pericardium without effusion. Aorta Normal ascending aorta dimension. CONCLUSIONS 1-Normal left ventricular cavity size. Normal left ventricular systolic function. No regional wall motion abnormalities. Left ventricular ejection fraction is estimated at 55 %. Grade I/IV diastolic dysfunction (abnormal relaxation filling pattern), normal to mildly elevated filling pressures. 2-Severely thickened mitral valve. Severe mitral annular calcification. No mitral valve stenosis. Trace mitral valve regurgitation. 3-Moderate aortic valve calcification. No aortic valve stenosis. No aortic valve regurgitation. 4-Structurally normal tricuspid valve without significant stenosis or regurgitation. Pulmonary artery systolic pressure is normal. 5-Normal right ventricular size. RVSP could not be calculated due to incomplete tricuspid regurgitation velocity profile. 6-There is no pericardial effusion. 7-Right atrial pressure is around 5 mm of mercury. 8-There are no prior echocardiogram studies to compare. Kim Oliva MD (Electronically Signed) Final Date: 28 November 2019 18:18 S
[2019-11-28 19:23] LABS: Anion Gap 16.3 (5-19)
[2019-11-28 19:24] LABS: Potassium 3.3 mmol/L (3.5-5.1)
[2019-11-28 19:25] LABS: Blood Urea Nitrogen 84 mg/dL (8-23)
[2019-11-28 20:47] LABS: Glucose Point of Care 131 mg/dL (70-110)
[2019-11-28 20:54] LABS: Partial Thromboplastin Time 142.1 SECONDS (23.9-36.7)
[2019-11-29] VITALS (9 sets, daily range): BP systolic 140–150; BP diastolic 70–76; PULSE 80–88; RESP 18–22; TEMP 35.8–37.1; O2SAT 91–99
[2019-11-29 03:36] LABS: Basophils % 0.1 %; Eosinophils % 0.1 %; Hematocrit 29.2 % (37.0-47.0); Hemoglobin 9.4 g/dL (11.5-15.3); Lymphocytes # 1.9 10^3/uL (0.8-4.8); Lymphocytes % 14.6 %; Mean Corpuscular HGB Conc 32.2 g/dL (30.0-36.0); Mean Corpuscular Hemoglobin 29.3 pg (28.0-34.0); Mean Platelet Volume 12.3 fL (7.4-10.4); Monocytes # 0.9 10^3/uL (0.2-0.9); Monocytes % 6.9 %; Neutrophils % 77.8 %; Nucleated Red Blood Cells % 0 %; Platelet Count 305 10^3/cmm (130-400); Red Blood Count 3.21 10^6/uL (4.1-5.3); Red Cell Distribution Width 17.3 % (12.1-15.1); White Blood Count 13.2 10^3/uL (4.0-10.0)
[2019-11-29 04:03] LABS: Alanine Aminotransferase 32 U/L (0-33); Phosphorus 3.3 mg/dL (2.5-4.5); Total Bilirubin 0.2 mg/dL (0.15-1.2)
[2019-11-29 04:44] LABS: Partial Thromboplastin Time 203.5 SECONDS (23.9-36.7)
[2019-11-29] MEDS: sodium chloride 0.9% 1,000 ML 75 ML IV (06:24)
[2019-11-29 06:31] LABS: Chloride 114 mmol/L (98-107); Potassium 3.3 mmol/L (3.5-5.1); Sodium 144 mmol/L (136-145)
--- NOTE | 2019-11-29 06:34 | PC.NURSE ---
Critical PTT recieved of 203.5, reported this to doctor, new orders received to hold heparin gtt for 3hrs and restart at 14ml/hr after 3hr hold at 0750.
[2019-11-29 07:16] LABS: Glucose Point of Care 142 mg/dL (70-110)
[2019-11-29 07:19] LABS: Anion Gap 14.3 (5-19); Aspartate Amino Transferase 56 U/L (0-32); Calcium 7.2 mg/dL (8.5-10.5); Carbon Dioxide 19 mmol/L (22-29); Glucose 155 mg/dL (65-115); Magnesium 2.5 mg/dL (1.7-2.3); Osmolality Calculated 301 mOsm/kg (285-295); Total Protein 5.3 g/dL (6.6-8.7)
[2019-11-29 07:37] LABS: Albumin Level 2.8 g/dL (3.5-5.2); Alkaline Phosphatase 55 IU/L (35-105); Globulin 2.5 g/dL (1.3-4.6)
[2019-11-29 07:47] LABS: Blood Urea Nitrogen 83 mg/dL (8-23)
--- NOTE | 2019-11-29 09:29 | PM.PN ---
Subjective Subjective: Interval history: The patient is status post decompressive colonoscopy yesterday. Her mental status remains about the same. Nursing is currently in her room and says she just had a very large loose bowel movement. Vitals/I&O/Wt Last Vital Signs Temp 97.9 F 11/29/19 08:00 Pulse 80 11/29/19 08:00 Resp 18 11/29/19 08:00 BP 143/71 11/29/19 08:00 Pulse Ox 92 11/29/19 08:00 11/28/19 11/29/19 11/29/19 22:59 06:59 14:59 Intake Total 1400 / 4449.70 1828.45 / 4449.70 0 / 0 Output Total 0 / 200 200 / 200 Balance 1400 / 4249.70 1628.45 / 4249.70 0 / 0 Weight last 48 hrs Weight 178 lb Physical Exam Narrative: EXAM NARRATIVE: Abdomen much less distended. Urinary Catheter Management^: Field: Cath Placed During This Visit: no Urethral Indwelling: Yes Reason for Continuing Indwelling Catheter: Required Immobilization for Trauma or Surgery or Anesthesia Data : 11/29/19 03:08 11/29/19 03:08 Micro: Microbiology 11/27/19 19:55 Blood Culture - Preliminary Blood NEGATIVE TO DATE 11/27/19 19:52 Blood Culture - Preliminary Blood NEGATIVE TO DATE A&P Assessment and plan (1) Colon distention: Status post successful decompressive colonoscopy on 11/28/2019. The patient just had a very large loose bowel movement; hopefully her bowel function will continue without the need for a repeat procedure. Status: Acute Attestations Medical Necessity Statement*: See admitting service's notation. Coding Level of Care Code Acute Admitting Officer for Rosio Su Diagnoses Colon distention K63.89
[2019-11-29] MEDS: cefTRIAXone 1,000 MG in sodium chloride 0.9% (plus) 50 ML 100 MG IV (09:37)
[2019-11-29] MEDS: dilTIAZem ER (24HR) 240 mg Capsule PO (09:38)
[2019-11-29] MEDS: aspirin 81 mg EC Tablet PO (09:38)
[2019-11-29] MEDS: potassium chloride ER 10 mEq Tablet 40 MEQ PO ×2 (09:38→20:47)
[2019-11-29] MEDS: levothyroxine 100 mcg Tablet PO (09:38)
[2019-11-29] MEDS: losartan 50 mg Tablet 100 MG PO (09:38)
[2019-11-29] MEDS: hydroCHLOROthiazide 25 mg Tablet PO (09:39)
[2019-11-29] MEDS: clopidogrel 75 mg Tablet PO (09:39)
[2019-11-29 10:22] LABS: Partial Thromboplastin Time 26.6 SECONDS (23.9-36.7)
[2019-11-29 10:34] LABS: Add Urine Microscopic? YES; Bilirubin Urine Neg (NEGATIVE); Blood Urine 3+ (Negative); Glucose Urine UA Norm (Normal); Ketones Urine Negative (Negative); Leukocyte Esterase Urine 2+ (Negative); Nitrate Urine Negative (Negative); Protein Urine Neg (Negative); Urine Appearance Hazy (CLEAR); Urine Color Straw (Yellow); Urobilinogen Urine Norm (Negative); pH Urine 5 (5-7)
[2019-11-29 10:35] LABS: Add Urine Culture? Yes; Bacteria Urine 1+; Mucus Urine 2+; Squamous Epithelial Cell Urine RARE (0-5)
[2019-11-29 12:29] LABS: Glucose Point of Care 139 mg/dL (70-110)
[2019-11-29] MEDS: potassium chloride premix 40 MEQ/100 ML PREMIX 25 MEQ IV (12:41)
[2019-11-29] MEDS: fluconazole 100 mg Tablet 200 MG PO (12:41)
[2019-11-29] MEDS: enoxaparin 80 mg/0.8 mL Syringe SUBCUT (12:41)
--- NOTE | 2019-11-29 13:40 | P.PN_ITS ---
Subjective Subjective: Interval history: Patient had a decompressive colonoscopy yesterday, after that she had a large bowel movement, since then she states that she is passing gas, no bowel movement since then, abdomen is less distended, hyperactive bowel sounds, she has no complaints, states that she is doing well, she actually asked me how I was doing, her mobility in her right upper lower r ight lower extremities seem to be improved, but significantly diminished compared to left Vitals/I&O/Wt Last Vital Signs Temp 98.4 F 11/29/19 12:00 Pulse 82 11/29/19 12:00 Resp 18 11/29/19 12:00 BP 145/70 11/29/19 12:00 Pulse Ox 93 11/29/19 12:00 11/28/19 11/29/19 11/29/19 22:59 06:59 14:59 Intake Total 1400 / 2671.25 1828.45 / 4499.70 0 / 0 Output Total 0 / 0 200 / 200 Balance 1400 / 2671.25 1628.45 / 4299.70 0 / 0 Weight last 48 hrs Weight 80.739 kg Physical Exam Const: COMMON NORMALS: no acute distress and alert GENERAL APPEARANCE: cooperative and comfortable ORIENTATION/CONSCIOUSNESS: Yes oriented to person; not oriented to place and not oriented to time HENMT: COMMON NORMALS: normocephalic HEAD & SCALP: normocephalic Eye: COMMON NORMALS: Equal, round and reactive pupils present and EOMs intact bilaterally GENERAL EYE: appearance normal, both eyes and all related structures PUPIL: Yes Equal, round and reactive pupils present Neck/C-Spine: COMMON NORMALS: full ROM, no lymphadenopathy and no JVD Lymph: LYMPHATIC: no lymphadenopathy noted Chest: OTHER: Has a right port in place Resp: COMMON NORMALS: normal respiratory effort, No retractions, No use of accessory muscles and clear to auscultation bilaterally AUSCULTATION: clear to auscultation bilaterally Cardio: COMMON NORMALS: no JVD, regular rate, regular rhythm, S1 normal heart sound present, S2 normal heart sound present, No gallops present (Cardio), No clicks present (Cardio) and No murmurs present (Cardio) RATE: regular rate RHYTHM: regular rhythm HEART SOUNDS: S1 normal heart sound present and S2 normal heart sound present GI: COMMON NORMALS: non-tender, no masses and no bruits INSPECTION: Yes normal to inspection and Yes abdominal distension AUSCULTATION: Yes Hyperactive bowel sounds present and Yes Hypoactive bowel sounds present PALPATION: No Tenderness to palpation present (GI), No Guarding due to palpation present (GI), No Rigid due to palpation and No Rebound tenderness present PERCUSSION: tympanic to percussion Extremity: COMMON NORMALS: normal to inspection, full ROM, capillary refill normal, no clubbing, cyanosis or edema, no calf tenderness and no pedal edema OTHER: Right lower extremity, wrapped, amputation of second third digit, wound VAC in place Neuro: SENSORIUM/ORIENTATION: Yes alert, Yes oriented to person, No oriented to place and No oriented to time OTHER: Does follow commands such as moving her left upper extremity, wiggling her toes of the left side, 1 right upper extremity strength 1 out of 5 compared to 5 out of 5 on the left, left lower extremity strength 1 out of 5 compared to 5 and 5 on the left, follows commands is a smiling, closing her eyes,, much more alert and awake this morning Psych: COMMON NORMALS: mental status grossly normal Urinary Catheter Management^: Field: Cath Placed During This Visit: no Urethral Indwelling: Yes Reason for Continuing Indwelling Catheter: Required Immobilization for Trauma or Surgery or Anesthesia Data : 11/29/19 03:08 11/29/19 03:08 Micro: Microbiology 11/29/19 09:40 C.difficile Toxin B Gene (PCR) - Final Stool 11/28/19 02:58 Urine Culture - Preliminary Urine,Clean Catch Yeast species 11/27/19 19:55 Blood Culture - Preliminary Blood NEGATIVE TO DATE 11/27/19 19:52 Blood Culture - Preliminary Blood NEGATIVE TO DATE A&P Assessment and plan (1) Toxic encephalopathy: -Multifactorial related to hypokalemia, uremia, ileus, previous stroke, possible UTI -Of note from patient's ER visit on 11/10/2019, her blood cultures grew group A strep pyogenes -Chest x-ray no focal pneumonia -White blood cell count 13.2, pro-Aren 0.25 -Follow urine cultures urine culture positive for Yen, start fluconazole -daptomycin 4mg/kg q48hr as crcl less than 30 -Patient is on daptomycin for left lower extremity osteomyelitis, CPK 897, hold for now given concerns for elva and rhabdo -We will also get a C. difficile given ileus -Neurochecks, aspiration precautions, seizure precautions will keep patient n.p. o. -Start gentle hydration given elevated BNP, although lungs no evidence of pneumonia or pallor edema chest x-ray, lungs sound clear to auscultation Status: Acute (2) Ileus: -CT scan shows:The colon is diffusely to enlarged and air-filled measuring up to 11 cm in the cecal region. Motion artifact degrades theimages. -KUB showed significant colonic dilatation -Status post decompressive colonoscopy, had a large bowel movement overnight -This morning bowel sounds have increased, less distended, no guarding, no rebound, no rigidity -Ileus likely secondary to hypokalemia, patient is receiving potassium replacem ent therapy -Serial abdominal exams -We will get a C. difficile -Hold daptomycin -Keep patient n.p.o. -Gentle IV hydration -I have consulted Dr. Aviles from surgery, appreciate input Status: Acute (3) Hypokalemia: -Likely secondary dehydration, poor oral intake -Repeat potassium 3.3 -Recheck potassium this afternoon -So far has received 160 mEq of potassium Status: Acute (4) Acute kidney injury: -Likely sec to dehydration, poor oral intake, gentle IV hydration -BUN 93, cr 2.6 -Bicarb has decreased, add sodium bicarb 650mg TID -Patient does have uremia, but no evidence of severe uremic syndrome -CT scan of the abdomen and pelvis did not show any obstructive uropathy -Has evidence of acute renal failure, urine output minimal at 200 -Fena less than 1, likely prerenal, renal ultrasound within normal limits - gentle hydration, monitor kidney function, monitor urine output, hold all nephrotoxic agents Status: Acute (5) Atrial fibrillation: Continue telemetry monitoring Patient's creatinine clearance is less than 25, stop Eliquis From heparin drip to therapeutic Lovenox, as prophylaxis is difficult Status: Acute (6) Peripheral vascular disease: -Status post right femoral stent -Status post left fem pop bypass -On aspirin, statin, Plavix, cilostazol on hold due to traction with fluconazole Status: Acute (7) Insulin dependent type 2 diabetes mellitus: -Currently patient n.p.o. -Hold home insulin -Low-dose sliding scale Status: Acute (8) History of amputation of lesser toe of left foot: Status: Inactive (9) Hypertension: -Continue home medication -Hold nephrotoxic agents Status: Acute (10) Hyperlipidemia: -Continue home medication Status: Acute (11) Hypothyroid: continue home medication Status: Acute Additional A&P Information Patient's at bedside, states that patient is full code Attestations Medical Necessity Statement*: Patient requires hospitalization for ileus, hypokalemia, ELVA Coding Level of Care Code Acute Prosthetics Lab Technician for [facility] Diagnoses Toxic encephalopathy G92 Ileus K56.7 Hypokalemia E87.6 Acute kidney injury N17.9 Atrial fibrillation I48.91 Peripheral vascular disease I73.9 Insulin dependent type 2 diabetes mellitus E11.9; Z79.4 History of amputation of lesser toe of left foot Z89.422 Hypertension I10 Hyperlipidemia E78.5 Hypothyroid E03.9
[2019-11-29] MEDS: D5-NS 0.45% + KCL 20 mEq 20 MEQ/1,000 ML BAG 100 MEQ IV (15:50)
[2019-11-29] MEDS: sodium bicarbonate 650 mg Tablet PO ×2 (15:50→20:47)
[2019-11-29 16:44] LABS: Glucose Point of Care 177 mg/dL (70-110)
[2019-11-29 18:18] LABS: Anion Gap 14.7 (5-19); Calcium 7.2 mg/dL (8.5-10.5); Carbon Dioxide 17 mmol/L (22-29); Chloride 116 mmol/L (98-107); Glucose 233 mg/dL (65-115); Osmolality Calculated 306 mOsm/kg (285-295); Potassium 3.7 mmol/L (3.5-5.1); Sodium 144 mmol/L (136-145)
[2019-11-29 18:23] LABS: Blood Urea Nitrogen 86 mg/dL (8-23)
[2019-11-29] MEDS: atorvastatin 40 mg Tablet PO (20:47)
[2019-11-29 21:45] LABS: Glucose Point of Care 237 mg/dL (70-110)
[2019-11-30] VITALS (13 sets, daily range): BP systolic 118–164; BP diastolic 58–75; PULSE 55–86; RESP 16–98; TEMP 35.9–36.9; O2SAT 93–99
[2019-11-30] MEDS: D5-NS 0.45% + KCL 20 mEq 20 MEQ/1,000 ML BAG 100 MEQ IV ×2 (02:13→12:31)
[2019-11-30] MEDS: lanolin oint 7 gm 1 APPLIC TOPICAL (05:53)
[2019-11-30 06:06] LABS: Basophils % 0.1 %; Eosinophils % 0.1 %; Hematocrit 25.4 % (37.0-47.0); Lymphocytes # 1.5 10^3/uL (0.8-4.8); Mean Corpuscular HGB Conc 31.5 g/dL (30.0-36.0); Mean Corpuscular Hemoglobin 29.3 pg (28.0-34.0); Mean Platelet Volume 12.2 fL (7.4-10.4); Monocytes # 0.6 10^3/uL (0.2-0.9); Neutrophils # 6.99 10^3/uL (1.8-7.7); Neutrophils % 76.4 %; Nucleated Red Blood Cells % 0 %; Platelet Count 260 10^3/cmm (130-400); Red Blood Count 2.73 10^6/uL (4.1-5.3); Red Cell Distribution Width 17.9 % (12.1-15.1); White Blood Count 9.2 10^3/uL (4.0-10.0)
[2019-11-30 06:23] LABS: Alanine Aminotransferase 31 U/L (0-33); Albumin Level 2.6 g/dL (3.5-5.2); Alkaline Phosphatase 55 IU/L (35-105); Anion Gap 13.7 (5-19); Aspartate Amino Transferase 46 U/L (0-32); Calcium 7.5 mg/dL (8.5-10.5); Carbon Dioxide 17 mmol/L (22-29); Chloride 116 mmol/L (98-107); Globulin 2.5 g/dL (1.3-4.6); Glucose 338 mg/dL (65-115); Magnesium 2.6 mg/dL (1.7-2.3); Osmolality Calculated 310 mOsm/kg (285-295); Potassium 3.7 mmol/L (3.5-5.1); Sodium 143 mmol/L (136-145); Total Bilirubin 0.2 mg/dL (0.15-1.2); Total Protein 5.1 g/dL (6.6-8.7)
[2019-11-30 06:34] LABS: Blood Urea Nitrogen 86 mg/dL (8-23)
[2019-11-30 07:21] LABS: Glucose Point of Care 314 mg/dL (70-110)
--- NOTE | 2019-11-30 09:20 | PM.PN ---
Subjective Subjective: Interval history: The patient remains fairly nonverbal. Vitals/I&O/Wt Last Vital Signs Temp 98.1 F 11/30/19 08:00 Pulse 79 11/30/19 08:00 Resp 18 11/30/19 08:00 BP 146/72 11/30/19 08:00 Pulse Ox 96 11/30/19 08:00 11/29/19 11/30/19 11/30/19 22:59 06:59 14:59 Intake Total 110 / 1110 1000 / 1110 Output Total 700 / 800 100 / 800 Balance -590 / 310 900 / 310 Physical Exam Narrative: EXAM NARRATIVE: The abdomen is soft and has bowel sounds. Urinary Catheter Management^: Field: Cath Placed During This Visit: no Urethral Indwelling: Yes Reason for Continuing Indwelling Catheter: Chronic Indwelling Urinary Catheter on Admission Data : 11/30/19 05:46 11/30/19 05:46 Micro: Microbiology 11/29/19 09:40 C.difficile Toxin B Gene (PCR) - Final Stool 11/28/19 02:58 Urine Culture - Preliminary Urine,Clean Catch Yeast species A&P Assessment and plan (1) Colon distention: Status post successful decompressive colonoscopy on 11/28/2019. I will continue to see daily. Please call if I can be of further help. Status: Acute Attestations Medical Necessity Statement*: See admitting service's notation. Coding Level of Care Code Acute Tube Trailer Filler for [facility] Diagnoses Colon distention K63.89
[2019-11-30] MEDS: hydroCHLOROthiazide 25 mg Tablet PO (09:38)
[2019-11-30] MEDS: potassium chloride ER 10 mEq Tablet 40 MEQ PO ×2 (09:38→18:23)
[2019-11-30] MEDS: losartan 50 mg Tablet 100 MG PO (09:38)
[2019-11-30] MEDS: fluconazole 100 mg Tablet 200 MG PO (09:38)
[2019-11-30] MEDS: dilTIAZem ER (24HR) 240 mg Capsule PO (09:38)
[2019-11-30] MEDS: sodium bicarbonate 650 mg Tablet PO ×3 (09:39→21:24)
[2019-11-30] MEDS: levothyroxine 100 mcg Tablet PO (09:39)
[2019-11-30] MEDS: FUROsemide 10 mg/mL SDV 2mL 20 MG IVP (10:11)
[2019-11-30] MEDS: pantoprazole 40 mg SDV IVP ×2 (10:11→21:12)
[2019-11-30 11:48] LABS: Glucose Point of Care 309 mg/dL (70-110)
--- NOTE | 2019-11-30 12:28 | P.PN_ITS ---
Subjective Subjective: Interval history: This morning patient was examined, patient complains of abdominal pain, abdomen is a bit more distended than yesterday, has bowel sounds present, she had 1 large bowel movement this morning, she is alert oriented x2, answers most questions appropriately, right upper right lower extremity mobility persists, patient has had minimal urine output for the last 24 hours, 800 cc, she would like for me to speak to her , I have called her and left a message, he her hemoglobin is down to 8.0, I have held all her blood thinners, Hemoccult stool Vitals/I&O/Wt Last Vital Signs Temp 98.4 F 11/30/19 11:54 Pulse 84 11/30/19 11:54 Resp 18 11/30/19 11:54 BP 143/70 11/30/19 11:54 Pulse Ox 96 11/30/19 11:54 11/29/19 11/30/19 11/30/19 22:59 06:59 14:59 Intake Total 110 / 110 1000 / 1110 Output Total 700 / 700 100 / 800 Balance -590 / -590 900 / 310 Physical Exam Const: COMMON NORMALS: no acute distress GENERAL APPEARANCE: cooperative and comfortable NUTRITIONAL APPEARANCE: obese ORIENTATION/CONSCIOUSNESS: Yes awake, Yes oriented to person and Yes oriented to time; not oriented to place HENMT: COMMON NORMALS: normocephalic HEAD & SCALP: normocephalic Neck/C-Spine: COMMON NORMALS: no JVD Lymph: LYMPHATIC: no lymphadenopathy noted Chest: OTHER: Has a right port in place Resp: COMMON NORMALS: normal respiratory effort, No retractions, No use of accessory muscles and clear to auscultation bilaterally AUSCULTATION: clear to auscultation bilaterally Cardio: COMMON NORMALS: no JVD, regular rate, regular rhythm, S1 normal heart sound present and S2 normal heart sound present RATE: regular rate RHYTHM: regular rhythm HEART SOUNDS: S1 normal heart sound present and S2 normal heart sound present GI: COMMON NORMALS: Soft to palpation INSPECTION: Yes normal to inspection and Yes abdominal distension AUSCULTATION: Yes normoactive bowel sounds PALPATION: Yes Soft to palpation and No Tenderness to palpation present (GI) PERCUSSION: tympanic to percussion Extremity: COMMON NORMALS: capillary refill normal, no clubbing, cyanosis or edema, no calf tenderness and no pedal edema OTHER: Right lower extremity, wrapped, amputation of second third digit, wound VAC in place Neuro: SENSORIUM/ORIENTATION: Yes oriented to person, No oriented to place and Yes oriented to time OTHER: Does follow commands such as moving her left upper extremity, wiggling her toes of the left side, 1 right upper extremity strength 1 out of 5 compared to 5 out of 5 on the left, left lower extremity strength 1 out of 5 compared to 5 and 5 on the left, follows commands is a smiling, closing her eyes,, much more alert and awake this morning Psych: COMMON NORMALS: mental status grossly normal Urinary Catheter Management^: Field: Cath Placed During This Visit: no Urethral Indwelling: Yes Reason for Continuing Indwelling Catheter: Chronic Indwelling Urinary Catheter on Admission Data : 11/30/19 05:46 11/30/19 05:46 Micro: Microbiology 11/30/19 11:15 Occult Blood (FIT) - Final Stool 11/29/19 09:40 Urine Culture - Preliminary Urine,Clean Catch Yeast 11/28/19 02:58 Urine Culture - Preliminary Urine,Clean Catch Yeast species 11/29/19 09:40 C.difficile Toxin B Gene (PCR) - Final Stool A&P Assessment and plan (1) Toxic encephalopathy: -Multifactorial related to hypokalemia, uremia, ileus, previous stroke, possible UTI -Mentation today is back to baseline -Of note from patient's ER visit on 11/10/2019, her blood cultures grew group A strep pyogenes, repeat blood cultures negative -Chest x-ray no focal pneumonia -White blood cell count 9.2 -Follow urine cultures, urine culture positive for Yen, on fluconazole day 2, patient had repeat urine cultures drawn preemptively that grew Yen, but patient has not received appropriate length of treatment -daptomycin 4mg/kg q48hr as crcl less than 30 -Patient is on daptomycin for left lower extremity osteomyelitis, CPK 897, -C. difficile negative -Neurochecks, aspiration precautions, seizure precautions will keep patient n.p.o. Status: Acute (2) Ileus: -CT scan shows:The colon is diffusely to enlarged and air-filled measuring up to 11 cm in the cecal region. Motion artifact degrades theimages. -KUB showed significant colonic dilatation -Status post decompressive colonoscopy, had a large bowel movement overnight -This morning bowel sounds have increased, but abdomen is a bit more distended, no guarding, no rebound, no rigidity, she did have a large bowel movement -Ileus likely secondary to hypokalemia, patient is receiving potassium replacement therapy We will stop IV fluids, Dr. Aviles was okay would try clear liquid diet- -Serial abdominal exams -C. difficile negative -Keep patient n.p.o. -I have consulted Dr. Aviles from surgery, appreciate input Status: Acute (3) Hypokalemia: -Likely secondary dehydration, poor oral intake -Repeat potassium 3. -Recheck potassium this afternoon Status: Acute (4) Acute kidney injury: -Likely sec to dehydration, poor oral intake -BUN 86, creatinine improved to 2.3 -Bicarb has decreased, add sodium bicarb 650mg TID -Patient does have uremia, but no evidence of severe uremic syndrome -CT scan of the abdomen and pelvis did not show any obstructive uropathy -Has evidence of acute renal failure, urine output minimal at 800, will try a small dose of Lasix to see if she puts out urine -Fena less than 1, likely prerenal, renal ultrasound within normal limits -Stop hydration, monitor kidney function, monitor urine output, hold all nephrotoxic agents Status: Acute (5) Atrial fibrillation: Continue telemetry monitoring Patient's creatinine clearance is less than 25, stop Eliquis Hold anticoagulation due to concerns for anemia, GI bleed Status: Acute (6) Peripheral vascular disease: -Status post right femoral stent -Status post left fem pop bypass -On aspirin, statin, Plavix, cilostazol on hold due to traction with fluconazole Status: Acute (7) Insulin dependent type 2 diabetes mellitus: -Currently patient n.p.o. -Hold home insulin -Low-dose sliding scale Status: Acute (8) History of amputation of lesser toe of left foot: Status: Inactive (9) Hypertension: -Continue home medication -Hold nephrotoxic agents Status: Acute (10) Hyperlipidemia: -Continue home medication Status: Acute (11) Hypothyroid: continue home medication Status: Acute (12) Anemia: Hemoglobin this morning 8.0 No overt signs of GI bleed, no bloody or black stools, no hemodynamic compromise Hemoccult stool negative Likely anemia secondary to acute renal failure, but cannot rule out slow GI bleed Plan is to hold all anticoagulation, aspirin, Plavix Will transfuse 1 unit PRBC, monitor hemoglobin Monitor for bloody or black stools Continue Protonix 40 twice daily Monitor mental status closely, neurochecks, monitor hemodynamics Discussed risks and benefits of holding anticoagulation, voiced understanding, all questions answered Status: Acute Additional A&P Information Patient's at bedside, states that patient is full code Attestations Medical Necessity Statement*: Patient requires hospitalization, ileus, hypokalemia, anemia, Coding Level of Care Code Acute Fabricator Artificial Breast for [facility] Diagnoses Toxic encephalopathy G92 Ileus K56.7 Hypokalemia E87.6 Acute kidney injury N17.9 Atrial fibrillation I48.91 Peripheral vascular disease I73.9 Insulin dependent type 2 diabetes mellitus E11.9; Z79.4 History of amputation of lesser toe of left foot Z89.422 Hypertension I10 Hyperlipidemia E78.5 Hypothyroid E03.9 Anemia D64.9
--- NOTE | 2019-11-30 12:42 | PC.SOCIAL ---
IMM complete with explanation of Medicare rights and copy given to pt 11/30/19 @ 12:10pm.
[2019-11-30 17:03] LABS: Glucose Point of Care 278 mg/dL (70-110)
[2019-11-30] MEDS: sodium chloride 0.9% (100 ml) 100 ML 50 ML (18:22)
[2019-11-30 21:13] LABS: Glucose Point of Care 282 mg/dL (70-110)
[2019-11-30] MEDS: atorvastatin 40 mg Tablet PO (21:24)
[2019-12-01] VITALS (9 sets, daily range): BP systolic 142–171; BP diastolic 76–82; PULSE 78–105; RESP 13–20; TEMP 36–36.8; O2SAT 90–100
[2019-12-01 03:46] LABS: Eosinophils % 0.4 %; Hematocrit 31.8 % (37.0-47.0); Hemoglobin 10.4 g/dL (11.5-15.3); Lymphocytes # 1.7 10^3/uL (0.8-4.8); Lymphocytes % 18.1 %; Mean Corpuscular HGB Conc 32.7 g/dL (30.0-36.0); Mean Corpuscular Hemoglobin 30.3 pg (28.0-34.0); Mean Corpuscular Volume 92.7 fL (81-99); Monocytes # 0.7 10^3/uL (0.2-0.9); Monocytes % 7.5 %; Neutrophils % 73.6 %; Nucleated Red Blood Cells % 0 %; Platelet Count 248 10^3/cmm (130-400); Red Blood Count 3.43 10^6/uL (4.1-5.3); Red Cell Distribution Width 17.4 % (12.1-15.1); White Blood Count 9.2 10^3/uL (4.0-10.0)
[2019-12-01 04:09] LABS: Alanine Aminotransferase 34 U/L (0-33); Alkaline Phosphatase 58 IU/L (35-105); Anion Gap 14.3 (5-19); Aspartate Amino Transferase 41 U/L (0-32); Blood Urea Nitrogen 75 mg/dL (8-23); Carbon Dioxide 18 mmol/L (22-29); Chloride 120 mmol/L (98-107); Globulin 2.3 g/dL (1.3-4.6); Glucose 156 mg/dL (65-115); Magnesium 2.5 mg/dL (1.7-2.3); Osmolality Calculated 309 mOsm/kg (285-295); Phosphorus 2.6 mg/dL (2.5-4.5); Potassium 4.3 mmol/L (3.5-5.1); Sodium 148 mmol/L (136-145); Total Bilirubin 0.4 mg/dL (0.15-1.2); Total Protein 5.3 g/dL (6.6-8.7)
[2019-12-01 06:30] LABS: Glucose Point of Care 141 mg/dL (70-110)
--- NOTE | 2019-12-01 07:31 | PM.PN ---
Subjective Subjective: Interval history: The hospitalist had indicated that he thought that the patient's abdomen was a little bit more distended yesterday, so I am seeing the patient again today. The patient seems a little bit more alert and verbal this morning. She says she is doing well. She asked how I was doing. She denies any abdominal pain. Vitals/I&O/Wt Last Vital Signs Temp 97.2 F L 12/01/19 07:08 Pulse 82 12/01/19 07:08 Resp 16 12/01/19 07:08 BP 142/76 12/01/19 07:08 Pulse Ox 100 12/01/19 07:08 11/30/19 12/01/19 12/01/19 22:59 06:59 14:59 Intake Total 350 / 1950 Output Total 375 / 1715 1200 / 1715 Balance -25 / 235 -1200 / 235 Physical Exam Narrative: EXAM NARRATIVE: Abdomen is nondistended this morning, perhaps the least distended that I have seen her to date. She has no appreciable tenderness on exam. Urinary Catheter Management^: Field: Cath Placed During This Visit: no Urethral Indwelling: Yes Reason for Continuing Indwelling Catheter: Chronic Indwelling Urinary Catheter on Admission Data : 12/01/19 03:32 12/01/19 03:32 Micro: Microbiology 11/30/19 11:15 Occult Blood (FIT) - Final Stool 11/29/19 09:40 Urine Culture - Preliminary Urine,Clean Catch Yeast 11/28/19 02:58 Urine Culture - Preliminary Urine,Clean Catch Yeast species A&P Assessment and plan (1) Colon distention: Status post successful decompressive colonoscopy on 11/28/2019. Again, I will probably not continue to see the patient daily but will be available if needed. Please call if I can be of further assistance. Status: Acute Attestations Medical Necessity Statement*: See admitting service's notation. Coding Level of Care Code Acute Compressor Service Technician for [facility] Diagnoses Colon distention K63.89
[2019-12-01] MEDS: sodium bicarbonate 650 mg Tablet PO ×3 (09:23→21:48)
[2019-12-01] MEDS: hydroCHLOROthiazide 25 mg Tablet PO (09:23)
[2019-12-01] MEDS: pantoprazole 40 mg SDV IVP ×2 (09:23→21:48)
[2019-12-01] MEDS: potassium chloride ER 10 mEq Tablet 40 MEQ PO ×2 (09:24→17:43)
[2019-12-01] MEDS: losartan 50 mg Tablet 100 MG PO (09:24)
[2019-12-01] MEDS: levothyroxine 100 mcg Tablet PO (09:25)
[2019-12-01] MEDS: fluconazole 100 mg Tablet 200 MG PO (09:25)
[2019-12-01] MEDS: dilTIAZem ER (24HR) 240 mg Capsule PO (09:25)
[2019-12-01 10:56] LABS: Glucose Point of Care 190 mg/dL (70-110)
[2019-12-01 16:50] LABS: Glucose Point of Care 168 mg/dL (70-110)
--- NOTE | 2019-12-01 17:11 | PM.PN ---
Subjective Subjective: Interval history: no new complaints today. Arleth improving, na at 148 Medications: Reviewed: Yes Vitals/I&O/Wt Last Vital Signs Temp 97.8 F 12/01/19 15:31 Pulse 81 12/01/19 15:31 Resp 13 12/01/19 15:31 BP 155/78 12/01/19 15:31 Pulse Ox 98 12/01/19 15:31 12/01/19 12/01/19 12/01/19 06:59 14:59 22:59 Intake Total 920 / 920 Output Total 1200 / 1715 Balance -1200 / 235 920 / 920 Physical Exam Urinary Catheter Management^: Field: Cath Placed During This Visit: no Urethral Indwelling: Yes Reason for Continuing Indwelling Catheter: Acute Urinary Retention or Obstruction Data : 12/01/19 03:32 12/01/19 03:32 Micro: Microbiology 11/28/19 02:58 Urine Culture - Final Urine,Clean Catch Yen albicans 11/29/19 09:40 Urine Culture - Preliminary Urine,Clean Catch Yeast A&P Assessment and plan (1) Toxic encephalopathy: -Multifactorial related to hypokalemia, uremia, ileus, previous stroke, possible UTI -Mentation back to baseline -Of note from patient's ER visit on 11/10/2019, her blood cultures grew group A strep pyogenes, repeat blood cultures negative -Chest x-ray no focal pneumonia -White blood cell count 9.2 -Follow urine cultures, urine culture positive for Yen, on fluconazole day -daptomycin 4mg/kg q48hr as crcl less than 30 -Patient is on daptomycin for left lower extremity osteomyelitis, CPK 897, -C. difficile negative -Neurochecks, aspiration precautions, seizure precautions will keep patient n.p.o. Status: Acute (2) Ileus: -CT scan shows:The colon is diffusely to enlarged and air-filled measuring up to 11 cm in the cecal region. Motion artifact degrades theimages. -KUB showed significant colonic dilatation -Status post decompressive colonoscopy, continues to have BM> -Ileus likely secondary to hypokalemia, patient is receiving potassium replacement therapy -C. difficile negative Continue clears Surgery recommendations appreciated Status: Acute (3) Hypokalemia: -Likely secondary dehydration, poor oral intake -Repeat potassium 4.3 -Recheck potassium this afternoon Status: Acute (4) Acute kidney injury: -Likely sec to dehydration, poor oral intake -BUN 86, creatinine improved to 2.3, now improving -Bicarb has decreased, add sodium bicarb 650mg TID -Patient does have uremia, but no evidence of severe uremic syndrome -CT scan of the abdomen and pelvis did not show any obstructive uropathy -Has evidence of acute renal failure, urine output minimal at 800, will try a small dose of Lasix to see if she puts out urine -Fena less than 1, likely prerenal, renal ultrasound within normal limits -Stop hydration, monitor kidney function, monitor urine output, hold all nephrotoxic agents Status: Acute (5) Atrial fibrillation: Continue telemetry monitoring Patient's creatinine clearance is less than 25, stop Eliquis Hold anticoagulation due to concerns for anemia, GI bleed Status: Acute (6) Peripheral vascular disease: -Status post right femoral stent -Status post left fem pop bypass -On aspirin, statin, Plavix, cilostazol on hold due to traction with fluconazole Status: Acute (7) Insulin dependent type 2 diabetes mellitus: -Currently patient n.p.o. -Hold home insulin -Low-dose sliding scale Status: Acute (8) History of amputation of lesser toe of left foot: Status: Inactive (9) Hypertension: -Continue home medication -Hold nephrotoxic agents Status: Acute (10) Hyperlipidemia: -Continue home medication Status: Acute (11) Hypothyroid: continue home medication Status: Acute (12) Anemia: Hemoglobin this morning 8.0 No overt signs of GI bleed, no bloody or black stools, no hemodynamic compromise Hemoccult stool negative Likely anemia secondary to acute renal failure, but cannot rule out slow GI bleed Plan is to hold all anticoagulation, aspirin, Plavix Will transfuse 1 unit PRBC, monitor hemoglobin Monitor for bloody or black stools Continue Protonix 40 twice daily Monitor mental status closely, neurochecks, monitor hemodynamics Discussed risks and benefits of holding anticoagulation, voiced understanding, all questions answered Status: Acute Attestations Medical Necessity Statement*: hypernatremia, need for iv fluids, close monitoring Coding Level of Care Code Acute Serging Machine Operator Automatic for [facility] Diagnoses Toxic encephalopathy G92 Ileus K56.7 Hypokalemia E87.6 Acute kidney injury N17.9 Atrial fibrillation I48.91 Peripheral vascular disease I73.9 Insulin dependent type 2 diabetes mellitus E11.9; Z79.4 History of amputation of lesser toe of left foot Z89.422 Hypertension I10 Hyperlipidemia E78.5 Hypothyroid E03.9 Anemia D64.9
[2019-12-01] MEDS: sodium chloride 0.45% 1,000 ML 50 ML IV (18:15)
[2019-12-01 21:25] LABS: Glucose Point of Care 82 mg/dL (70-110)
[2019-12-01] MEDS: atorvastatin 40 mg Tablet PO (21:48)
[2019-12-02] VITALS (10 sets, daily range): BP systolic 132–162; BP diastolic 71–87; PULSE 64–87; RESP 13–20; TEMP 36.6–36.8; O2SAT 93–99
[2019-12-02 05:02] LABS: Basophils % 0.1 %; Eosinophils # 0.1 10^3/uL (0.0-0.8); Eosinophils % 0.8 %; Hematocrit 30.9 % (37.0-47.0); Hemoglobin 9.8 g/dL (11.5-15.3); Lymphocytes # 1.5 10^3/uL (0.8-4.8); Lymphocytes % 17.3 %; Mean Corpuscular HGB Conc 31.7 g/dL (30.0-36.0); Mean Corpuscular Hemoglobin 30.2 pg (28.0-34.0); Mean Corpuscular Volume 95.4 fL (81-99); Monocytes # 0.5 10^3/uL (0.2-0.9); Monocytes % 6.3 %; Neutrophils # 6.43 10^3/uL (1.8-7.7); Nucleated Red Blood Cells % 0 %; Platelet Count 242 10^3/cmm (130-400); Red Blood Count 3.24 10^6/uL (4.1-5.3); Red Cell Distribution Width 18.5 % (12.1-15.1); White Blood Count 8.6 10^3/uL (4.0-10.0)
[2019-12-02 05:30] LABS: Alanine Aminotransferase 44 U/L (0-33); Albumin Level 2.8 g/dL (3.5-5.2); Alkaline Phosphatase 59 IU/L (35-105); Aspartate Amino Transferase 41 U/L (0-32); Blood Urea Nitrogen 60 mg/dL (8-23); Calcium 7.8 mg/dL (8.5-10.5); Carbon Dioxide 19 mmol/L (22-29); Chloride 122 mmol/L (98-107); Globulin 2.8 g/dL (1.3-4.6); Glucose 181 mg/dL (65-115); Magnesium 2.3 mg/dL (1.7-2.3); Osmolality Calculated 311 mOsm/kg (285-295); Phosphorus 2.9 mg/dL (2.5-4.5); Sodium 149 mmol/L (136-145); Total Bilirubin 0.3 mg/dL (0.15-1.2); Total Protein 5.6 g/dL (6.6-8.7)
[2019-12-02 06:57] LABS: Glucose Point of Care 175 mg/dL (70-110)
[2019-12-02] MEDS: fluconazole 100 mg Tablet 200 MG PO (10:18)
[2019-12-02] MEDS: sodium bicarbonate 650 mg Tablet PO ×3 (10:18→20:22)
[2019-12-02] MEDS: hydroCHLOROthiazide 25 mg Tablet PO (10:19)
[2019-12-02] MEDS: losartan 50 mg Tablet 100 MG PO (10:19)
[2019-12-02] MEDS: dilTIAZem ER (24HR) 240 mg Capsule PO (10:19)
[2019-12-02] MEDS: levothyroxine 100 mcg Tablet PO (10:19)
[2019-12-02] MEDS: potassium chloride ER 10 mEq Tablet 40 MEQ PO ×2 (10:20→17:07)
[2019-12-02] MEDS: pantoprazole 40 mg SDV IVP ×2 (10:29→22:11)
[2019-12-02 10:51] LABS: Glucose Point of Care 159 mg/dL (70-110)
--- NOTE | 2019-12-02 13:08 | PC.SOCIAL ---
IMM Update Pg. 2 of IMM updated. Copy left at bedside as patient is resting with both eyes closed.
[2019-12-02] MEDS: sodium chloride 0.45% 1,000 ML 50 ML IV (13:36)
--- NOTE | 2019-12-02 16:06 | P.PN_ITS ---
Subjective Subjective: Interval history: worsening hypernatremia, poor po intake Medications: Reviewed: Yes Vitals/I&O/Wt Last Vital Signs Temp 97.9 F 12/02/19 15:29 Pulse 64 12/02/19 15:29 Resp 18 12/02/19 15:29 BP 132/80 12/02/19 15:29 Pulse Ox 94 12/02/19 15:29 12/02/19 12/02/19 12/02/19 06:59 14:59 22:59 Intake Total 0 / 920 1627.5 / 1627.5 Output Total 750 / 1550 900 / 900 Balance -750 / -630 1627.5 / 1627.5 -900 / 727.5 Physical Exam Urinary Catheter Management^: Field: Cath Placed During This Visit: no Urethral Indwelling: Yes Reason for Continuing Indwelling Catheter: Acute Urinary Retention or Obstruction Data : 12/03/19 04:48 12/03/19 04:48 Micro: Microbiology 11/28/19 02:58 Urine Culture - Final Urine,Clean Catch Yen albicans A&P Assessment and plan (1) Toxic encephalopathy: -Multifactorial related to hypokalemia, uremia, ileus, previous stroke, possible UTI -Mentation back to baseline -Of note from patient's ER visit on 11/10/2019, her blood cultures grew group A strep pyogenes, repeat blood cultures negative -Chest x-ray no focal pneumonia -White blood cell count 9.2 -Follow urine cultures, urine culture positive for Yen, on fluconazole day -daptomycin 4mg/kg q48hr as crcl less than 30 -Patient is on daptomycin for left lower extremity osteomyelitis, CPK 897, -C. difficile negative -Neurochecks, aspiration precautions, seizure precautions will keep patient n.p.o. Status: Acute (2) Ileus: -CT scan shows:The colon is diffusely to enlarged and air-filled measuring up to 11 cm in the cecal region. Motion artifact degrades theimages. -KUB showed significant colonic dilatation -Status post decompressive colonoscopy, continues to have BM> -Ileus likely secondary to hypokalemia, patient is receiving potassium replacement therapy -C. difficile negative Continue clears Surgery recommendations appreciated Status: Acute (3) Hypokalemia: -Likely secondary dehydration, poor oral intake -Repeat potassium 4.3 -Recheck potassium this afternoon Status: Acute (4) Acute kidney injury: -Likely sec to dehydration, poor oral intake -BUN 86, creatinine improved to 2.3, now improving -Bicarb has decreased, add sodium bicarb 650mg TID -Patient does have uremia, but no evidence of severe uremic syndrome -CT scan of the abdomen and pelvis did not show any obstructive uropathy -Has evidence of acute renal failure, urine output minimal at 800, will try a small dose of Lasix to see if she puts out urine -Fena less than 1, likely prerenal, renal ultrasound within normal limits -Stop hydration, monitor kidney function, monitor urine output, hold all nephrotoxic agents Status: Acute (5) Atrial fibrillation: Continue telemetry monitoring Patient's creatinine clearance is less than 25, stop Eliquis Hold anticoagulation due to concerns for anemia, GI bleed Status: Acute (6) Peripheral vascular disease: -Status post right femoral stent -Status post left fem pop bypass -On aspirin, statin, Plavix, cilostazol on hold due to traction with fluconazole Status: Acute (7) Insulin dependent type 2 diabetes mellitus: -Currently patient n.p.o. -Hold home insulin -Low-dose sliding scale Status: Acute (8) History of amputation of lesser toe of left foot: Status: Inactive (9) Hypertension: -Continue home medication -Hold nephrotoxic agents Status: Acute (10) Hyperlipidemia: -Continue home medication Status: Acute (11) Hypothyroid: continue home medication Status: Acute (12) Anemia: Hemoglobin this morning 8.0 No overt signs of GI bleed, no bloody or black stools, no hemodynamic compromise Hemoccult stool negative Likely anemia secondary to acute renal failure, but cannot rule out slow GI bleed Plan is to hold all anticoagulation, aspirin, Plavix Will transfuse 1 unit PRBC, monitor hemoglobin Monitor for bloody or black stools Continue Protonix 40 twice daily Monitor mental status closely, neurochecks, monitor hemodynamics Discussed risks and benefits of holding anticoagulation, voiced understanding, all questions answered Status: Acute Additional A&P Information Patient's at bedside, states that patient is full code Attestations Medical Necessity Statement*: hypernatyremia Coding Level of Care Code Acute Roster Clerk for [facility] Fwd Diagnoses Toxic encephalopathy G92 Ileus K56.7 Hypokalemia E87.6 Acute kidney injury N17.9 Atrial fibrillation I48.91 Peripheral vascular disease I73.9 Insulin dependent type 2 diabetes mellitus E11.9; Z79.4 History of amputation of lesser toe of left foot Z89.422 Hypertension I10 Hyperlipidemia E78.5 Hypothyroid E03.9 Anemia D64.9
[2019-12-02 16:20] LABS: Glucose Point of Care 190 mg/dL (70-110)
[2019-12-02] MEDS: atorvastatin 40 mg Tablet PO (20:23)
[2019-12-02 22:58] LABS: Glucose Point of Care 176 mg/dL (70-110)
[2019-12-03] VITALS (15 sets, daily range): BP systolic 158–197; BP diastolic 74–91; PULSE 73–93; RESP 14–20; TEMP 36.1–36.7; O2SAT 93–99
[2019-12-03 04:59] LABS: Eosinophils # 0.1 10^3/uL (0.0-0.8); Hematocrit 31.7 % (37.0-47.0); Hemoglobin 9.8 g/dL (11.5-15.3); Lymphocytes # 1.6 10^3/uL (0.8-4.8); Lymphocytes % 17.8 %; Mean Corpuscular HGB Conc 30.9 g/dL (30.0-36.0); Mean Corpuscular Hemoglobin 29.3 pg (28.0-34.0); Mean Corpuscular Volume 94.9 fL (81-99); Mean Platelet Volume 11.5 fL (7.4-10.4); Monocytes # 0.6 10^3/uL (0.2-0.9); Monocytes % 6.3 %; Neutrophils % 74.3 %; Nucleated Red Blood Cells % 0 %; Platelet Count 235 10^3/cmm (130-400); Red Blood Count 3.34 10^6/uL (4.1-5.3); Red Cell Distribution Width 18.8 % (12.1-15.1)
[2019-12-03 05:29] LABS: Alanine Aminotransferase 70 U/L (0-33); Albumin Level 2.9 g/dL (3.5-5.2); Alkaline Phosphatase 61 IU/L (35-105); Anion Gap 14.1 (5-19); Aspartate Amino Transferase 61 U/L (0-32); Blood Urea Nitrogen 54 mg/dL (8-23); Calcium 7.9 mg/dL (8.5-10.5); Carbon Dioxide 19 mmol/L (22-29); Chloride 121 mmol/L (98-107); Globulin 2.6 g/dL (1.3-4.6); Glucose 192 mg/dL (65-115); Magnesium 2.2 mg/dL (1.7-2.3); Osmolality Calculated 314 mOsm/kg (285-295); Potassium 4.1 mmol/L (3.5-5.1); Sodium 150 mmol/L (136-145); Total Bilirubin 0.3 mg/dL (0.15-1.2); Total Protein 5.5 g/dL (6.6-8.7)
[2019-12-03 06:41] LABS: Glucose Point of Care 194 mg/dL (70-110)
[2019-12-03] MEDS: pantoprazole 40 mg SDV IVP ×2 (09:57→23:21)
[2019-12-03 10:55] LABS: Glucose Point of Care 223 mg/dL (70-110)
[2019-12-03] MEDS: sodium chloride 0.45% 1,000 ML 50 ML IV (11:30)
[2019-12-03] MEDS: FUROsemide 10 mg/mL SDV 10mL 60 MG IVP (16:05)
[2019-12-03 16:40] LABS: Glucose Point of Care 101 mg/dL (70-110)
--- NOTE | 2019-12-03 17:44 | PM.PN ---
Subjective Subjective: Interval history: Sodium continues to trend up to 150. Patient appears to be more lethargic when compared to yesterday. Per at bedside, he was still able to feed her some broth and have a basic conversation with her at bedside. Today patient is unable to perform this test. Her speech appears to be somewhat slurred. She is able to say some sentences such as I want to go home. Let me out of here. But otherwise her status remains waxing and waning. Creatinine stable at 1.7. Hemoglobin stable at 9.8. Medications: Reviewed: Yes Vitals/I&O/Wt Last Vital Signs Temp 98.1 F 12/03/19 15:14 Pulse 83 12/03/19 15:14 Resp 18 12/03/19 15:14 BP 158/91 12/03/19 15:14 Pulse Ox 96 12/03/19 15:14 12/03/19 12/03/19 12/03/19 06:59 14:59 22:59 Intake Total 1360 / 1360 Output Total 1000 / 1999 Balance -1000 / -132.5 1360 / 1360 Physical Exam Narrative: EXAM NARRATIVE: GEN: Awake, inconsistent responses to verbal commands CVS: S12 N RS: CTA B/L except crackles over RUL Abd: Soft, nt/nd , bs+ EXT: anasarca+ Urinary Catheter Management^: Field: Cath Placed During This Visit: no Urethral Indwelling: Yes Reason for Continuing Indwelling Catheter: Acute Urinary Retention or Obstruction Data : 12/03/19 04:48 12/03/19 04:48 Micro: Microbiology 11/27/19 19:55 Blood Culture - Final Blood NO GROWTH AFTER 5 DAYS 11/27/19 19:52 Blood Culture - Final Blood NO GROWTH AFTER 5 DAYS 11/29/19 09:40 Urine Culture - Final Urine,Clean Catch Yen albicans A&P Assessment and plan (1) Toxic encephalopathy: -Multifactorial related to hypokalemia, uremia, ileus, previous stroke, possible UTI -Mentation waxing and waning, more lethargic today, may be contributed by hypernatremia -Of note from patient's ER visit on 11/10/2019, her blood cultures grew group A strep pyogenes, repeat blood cultures negative -Chest x-ray no focal pneumonia -White blood cell count 9.2 -Follow urine cultures, urine culture positive for Yen, on fluconazole -daptomycin 4mg/kg q48hr as crcl less than 30 -Patient is on daptomycin for left lower extremity osteomyelitis, CPK 897, -C. difficile negative -Neurochecks, aspiration precautions, seizure precautions, cotinue nectar thick liquid diet Status: Acute (2) Ileus: -CT scan shows:The colon is diffusely to enlarged and air-filled measuring up to 11 cm in the cecal region. Motion artifact degrades theimages. -Status post decompressive colonoscopy, continues to have BM -Ileus likely secondary to hypokalemia, patient is receiving potassium replacement therapy -C. difficile negative Continue clears Surgery recommendations appreciated Status: Acute (3) Hypokalemia: -Likely secondary dehydration -now stabilized at >4 consistently Status: Acute (4) Acute kidney injury: -Likely sec to dehydration, poor oral intake - now resolved - stop sodium bicarbonate supplementation as may be contributing to hypernatremia -Patient does have uremia, but no evidence of severe uremic syndrome -CT scan of the abdomen and pelvis did not show any obstructive uropathy -Worsening anasarca, net + 5L since admission, lasix 60mg iv today. stop 1/2 NS Status: Acute (5) Atrial fibrillation: Continue telemetry monitoring Patient's creatinine clearance is less than 25, stop Eliquis Hold anticoagulation due to concerns for anemia, GI bleed Status: Acute (6) Peripheral vascular disease: -Status post right femoral stent -Status post left fem pop bypass -On aspirin, statin, Plavix, cilostazol on hold due to traction with fluconazole Status: Acute (7) Insulin dependent type 2 diabetes mellitus: -Hold home insulin -Low-dose sliding scale Status: Acute (8) History of amputation of lesser toe of left foot: Status: Inactive (9) Hypertension: -Continue home medication -Hold nephrotoxic agents Status: Acute (10) Hyperlipidemia: -Continue home medication Status: Acute (11) Hypothyroid: continue home medication Status: Acute (12) Anemia: Hemoglobin this morning 8.0 No overt signs of GI bleed, no bloody or black stools, no hemodynamic compromise Hemoccult stool negative Likely anemia secondary to acute renal failure, but cannot rule out slow GI bleed Plan is to hold all anticoagulation, aspirin, Plavix Will transfuse 1 unit PRBC, monitor hemoglobin Monitor for bloody or black stools Continue Protonix 40 twice daily Monitor mental status closely, neurochecks, monitor hemodynamics Discussed risks and benefits of holding anticoagulation, voiced understanding, all questions answered Status: Acute Attestations Medical Necessity Statement*: waxing and waning mentation Coding Level of Care Code Acute Senior Medical Billing Specialist for [facility]g Fwd Diagnoses Toxic encephalopathy G92 Ileus K56.7 Hypokalemia E87.6 Acute kidney injury N17.9 Atrial fibrillation I48.91 Peripheral vascular disease I73.9 Insulin dependent type 2 diabetes mellitus E11.9; Z79.4 History of amputation of lesser toe of left foot Z89.422 Hypertension I10 Hyperlipidemia E78.5 Hypothyroid E03.9 Anemia D64.9
[2019-12-03] MEDS: potassium chloride ER 10 mEq Tablet 40 MEQ PO (18:36)
[2019-12-03] MEDS: atorvastatin 40 mg Tablet PO (22:28)
[2019-12-03] MEDS: hyDRALAzine 20 mg/mL INJ 1 mL 5 MG IVP (23:21)
[2019-12-04] VITALS (10 sets, daily range): BP systolic 118–169; BP diastolic 54–95; PULSE 87–101; RESP 16–20; TEMP 36.5–36.8; O2SAT 96–99
[2019-12-04 07:24] LABS: Glucose Point of Care 211 mg/dL (70-110)
[2019-12-04] MEDS: losartan 50 mg Tablet 100 MG PO (09:13)
[2019-12-04] MEDS: fluconazole 100 mg Tablet 200 MG PO (09:13)
[2019-12-04] MEDS: potassium chloride ER 10 mEq Tablet 40 MEQ PO ×2 (09:13→17:42)
[2019-12-04] MEDS: hydroCHLOROthiazide 25 mg Tablet PO (09:13)
[2019-12-04] MEDS: dilTIAZem ER (24HR) 240 mg Capsule PO (09:14)
[2019-12-04] MEDS: levothyroxine 100 mcg Tablet PO (09:14)
[2019-12-04 10:58] LABS: Glucose Point of Care 240 mg/dL (70-110)
[2019-12-04 12:32] LABS: Alanine Aminotransferase 59 U/L (0-33); Albumin Level 2.9 g/dL (3.5-5.2); Alkaline Phosphatase 80 IU/L (35-105); Anion Gap 17.7 (5-19); Aspartate Amino Transferase 35 U/L (0-32); Blood Urea Nitrogen 49 mg/dL (8-23); Calcium 8.1 mg/dL (8.5-10.5); Carbon Dioxide 17 mmol/L (22-29); Chloride 117 mmol/L (98-107); Glucose 270 mg/dL (65-115); Osmolality Calculated 314 mOsm/kg (285-295); Potassium 3.7 mmol/L (3.5-5.1); Sodium 148 mmol/L (136-145); Total Bilirubin 0.3 mg/dL (0.15-1.2); Total Protein 5.9 g/dL (6.6-8.7)
[2019-12-04] MEDS: pantoprazole 40 mg SDV IVP (13:00)
--- NOTE | 2019-12-04 13:58 | PC.CHAP ---
Pastoral Care Encounter/Spiritual Assessment Type of Contact [] Declined water rights specialist visit [] Patient/Family/Request visit [] Outpatient visit [] Follow-up visit [] Physician referral [] Code/Alert [x] Routine visit [] Staff referral [] Actively dying [] Patient sleeping [] Family support [] [] Out of room [] Palliative care [] [] Receiving care in room [] Pre-surgical visit [] Trauma [] Long length of stay [] ICU visit [] Other: Relational/Emotional Strength [] Patient feels connected with others/family/visitors/staff [] Distress [] Loneliness/isolation [] Abandonment Spirituality of Patient [] Person of Genesis [] Attends Oriental Orthodox of their Genesis [] Believes in Prayer [] Reads Bible or Hindu materials [] There are Spiritual issues to be addressed Premix Concrete Batcher Interventions [] Prayer [] Active listening [] Non-anxious presence [] Spiritual/emotional support [] Crisis/trauma care [] Spiritual counseling [] Bereavement support [] Provided bereavement packet [] Provided Bible/devotional materials [] Provided toy/stuffed animal, coloring book to patient or family member [] Provided Communion [] Anointing/[place] [] Salvation [] Completed spiritual assessment [] Other: Impact on Illness or Injury [] Angry [] Fearful [] Anxious [] Often cries [] Exhaustion [] Unable to work [] Unable to attend zoroastrian [] Unable to walk/stand [] Unable to read [] Unable to drive [] Unable to eat/drink [] Unable to sleep [] Unable to be with family [] Patient intubated [x] Other: Summary Patient was unable to communicate or respond to verbally. Prayer provided. Time spent with patient 5 minutes
--- NOTE | 2019-12-04 14:39 | PM.PN ---
Subjective Subjective: Interval history: No events overnight. MS grossly unchanged. Medications: Reviewed: Yes Vitals/I&O/Wt Last Vital Signs Temp 97.4 F L 12/07/19 16:26 Pulse 76 12/07/19 16:26 Resp 18 12/07/19 16:26 BP 132/80 12/07/19 16:26 Pulse Ox 96 12/07/19 16:26 Physical Exam Narrative: EXAM NARRATIVE: EXAM NARRATIVE: GEN:needs frequent reorientation, answers simple questions and speaks few short sentences CVS: S1S2 N RS: CTA B/L Abd: Soft, nt/nd , bs+ Ext: anasarca+, improving, wound vac over LLE Urinary Catheter Management^: Field: Cath Placed During This Visit: no Urethral Indwelling: Yes Reason for Continuing Indwelling Catheter: Chronic Indwelling Urinary Catheter on Admission Data : 12/07/19 03:39 12/07/19 03:39 Micro: Microbiology 12/06/19 00:30 C.difficile Toxin B Gene (PCR) - Final Stool Routine Collection A&P Assessment and plan (1) Toxic encephalopathy: -Multifactorial related to hypokalemia, uremia, ileus, previous stroke, possible UTI, hypernatremia -Mentation waxing and waning, improving at this present time -Chest x-ray no focal pneumonia -Follow urine cultures, urine culture positive for Yen, on fluconazole, completed 7 days of treatment stopped today. -daptomycin 4mg/kg q48hr as crcl less than 30 -Patient is on daptomycin for left lower extremity osteomyelitis, CPK 897 started at [facility] , check another CK with morning labs. -Neurochecks, aspiration precautions, seizure precautions, cotinue nectar thick liquid diet, advance as tolerated Status: Acute (2) Ileus: -CT scan shows:The colon is diffusely to enlarged and air-filled measuring up to 11 cm in the cecal region. Motion artifact degrades theimages. -Status post decompressive colonoscopy, continues to have BM, improved now -Ileus likely secondary to hypokalemia, patient is receiving potassium replacement therapy -C. difficile negative Continue clears with aspiration precautions Surgery recommendations appreciated Status: Acute (3) Hypokalemia: Likely secondary to dehydration getting intermittent doses of Lasix. Potassium at 3.0 today. Does not like the taste of p.o. potassium therefore spits it up. Replace with 40 mEq IV today. Status: Acute (4) Acute kidney injury: -Likely sec to dehydration, poor oral intake, possibly also rhabdomyolysis given elevated CPK on admission. - now resolved - stop sodium bicarbonate supplementation as may be contributing to hypernatremia -Patient does have uremia, but no evidence of severe uremic syndrome -CT scan of the abdomen and pelvis did not show any obstructive uropathy -Worsening anasarca, now stable, net positive down from 5 L to 1.4 L at this present time. Net -800 cc yesterday, 2.1 L previously. Status: Acute (5) Atrial fibrillation: Continue telemetry monitoring Patient's creatinine clearance is less than 25, stop Eliquis Hold anticoagulation due to concerns for anemia, GI bleed Status: Acute (6) Peripheral vascular disease: -Status post right femoral stent -Status post left fem pop bypass -On aspirin, statin, Plavix, cilostazol at home. These medications were discontinued alongside of Eliquis due to concerns for GI bleed. Stool studies negative for occult blood from the . Resume Plavix Eliquis now. Closely monitor hemoglobin upon discharge. Additionally decompressive colonoscopy on the did not show any evidence of GI bleeding. Status: Acute (7) Insulin dependent type 2 diabetes mellitus: -Hold home insulin -Low-dose sliding scale Status: Acute (8) History of amputation of lesser toe of left foot: Status: Resolved (9) Hypertension: -Continue home medication -Hold nephrotoxic agents Status: Acute (10) Hyperlipidemia: -Continue home medication Status: Acute (11) Hypothyroid: continue home medication Status: Acute (12) Anemia: Hemoglobin this morning 8.0 No overt signs of GI bleed, no bloody or black stools, no hemodynamic compromise Hemoccult stool negative Resume Eliquis and Plavix Will transfuse 1 unit PRBC, monitor hemoglobin Monitor for bloody or black stools Continue Protonix 40 twice daily Monitor mental status closely, neurochecks, monitor hemodynamics Discussed risks and benefits of holding anticoagulation, voiced understanding, all questions answered Status: Acute (13) Hypernatremia: This is active problem currently Na at 150 now Had stopped sodium bicarb earlier two days ago Continue d5W @ 50 cc/hr Status: Acute Additional A&P Information Patient's at bedside, states that patient is full code Attestations Medical Necessity Statement*: Hypernatremia, AMS Time Spent in Patient Care: 16 - 35 minutes Coding Level of Care Code Acute Radio Tower Technician for Chg Fwd Diagnoses Toxic encephalopathy G92 Ileus K56.7 Hypokalemia E87.6 Acute kidney injury N17.9 Atrial fibrillation I48.91 Peripheral vascular disease I73.9 Insulin dependent type 2 diabetes mellitus E11.9; Z79.4 History of amputation of lesser toe of left foot Z89.422 Hypertension I10 Hyperlipidemia E78.5 Hypothyroid E03.9 Anemia D64.9 Hypernatremia E87.0
[2019-12-04 17:10] LABS: Glucose Point of Care 179 mg/dL (70-110)
--- NOTE | 2019-12-04 18:44 | PC.NURSE ---
patient set up in chair most of day, see tolerated well. Patient has been leaving urine past her cath. Replaced cath with 14french and per field technical specialist, 10mls ns in bulb.. patient had 1000out of pale yellow urine.
[2019-12-04] MEDS: FUROsemide 10 mg/mL SDV 4mL 40 MG IVP (19:02)
[2019-12-05] VITALS (9 sets, daily range): BP systolic 118–160; BP diastolic 50–90; PULSE 85–91; RESP 16–20; TEMP 36.2–37; O2SAT 95–98
[2019-12-05] MEDS: atorvastatin 40 mg Tablet PO ×2 (00:12→22:45)
[2019-12-05] MEDS: pantoprazole 40 mg SDV IVP ×3 (00:12→22:47)
[2019-12-05 05:13] LABS: Eosinophils # 0.1 10^3/uL (0.0-0.8); Eosinophils % 0.9 %; Hematocrit 33.2 % (37.0-47.0); Hemoglobin 10.1 g/dL (11.5-15.3); Lymphocytes # 1.8 10^3/uL (0.8-4.8); Lymphocytes % 17.9 %; Mean Corpuscular HGB Conc 30.4 g/dL (30.0-36.0); Mean Corpuscular Hemoglobin 29.3 pg (28.0-34.0); Mean Corpuscular Volume 96.2 fL (81-99); Mean Platelet Volume 11.8 fL (7.4-10.4); Monocytes # 0.6 10^3/uL (0.2-0.9); Monocytes % 5.4 %; Neutrophils % 75.4 %; Nucleated Red Blood Cells % 0 %; Platelet Count 234 10^3/cmm (130-400); Red Blood Count 3.45 10^6/uL (4.1-5.3); Red Cell Distribution Width 19.3 % (12.1-15.1); White Blood Count 10.2 10^3/uL (4.0-10.0)
[2019-12-05 05:46] LABS: Alanine Aminotransferase 49 U/L (0-33); Albumin Level 2.6 g/dL (3.5-5.2); Alkaline Phosphatase 75 IU/L (35-105); Anion Gap 13.3 (5-19); Aspartate Amino Transferase 35 U/L (0-32); Blood Urea Nitrogen 45 mg/dL (8-23); Calcium 8.3 mg/dL (8.5-10.5); Carbon Dioxide 21 mmol/L (22-29); Chloride 121 mmol/L (98-107); Globulin 2.9 g/dL (1.3-4.6); Glucose 166 mg/dL (65-115); Osmolality Calculated 316 mOsm/kg (285-295); Potassium 3.3 mmol/L (3.5-5.1); Sodium 152 mmol/L (136-145); Total Bilirubin 0.4 mg/dL (0.15-1.2); Total Protein 5.5 g/dL (6.6-8.7)
[2019-12-05 06:46] LABS: Glucose Point of Care 167 mg/dL (70-110)
[2019-12-05] MEDS: levothyroxine 100 mcg Tablet PO (08:15)
[2019-12-05] MEDS: dilTIAZem ER (24HR) 240 mg Capsule PO (08:15)
[2019-12-05] MEDS: hydroCHLOROthiazide 25 mg Tablet PO (08:16)
[2019-12-05] MEDS: potassium chloride ER 10 mEq Tablet 40 MEQ PO ×2 (08:16→18:48)
[2019-12-05] MEDS: fluconazole 100 mg Tablet 200 MG PO (08:16)
[2019-12-05] MEDS: losartan 50 mg Tablet 100 MG PO (08:16)
[2019-12-05] MEDS: dextrose 5% 1,000 ML 50 ML IV (10:26)
[2019-12-05 11:08] LABS: Glucose Point of Care 260 mg/dL (70-110)
[2019-12-05] MEDS: acetaminophen 325 mg Tablet 650 MG PO (13:16)
--- NOTE | 2019-12-05 13:42 | PC.CHAP ---
Pastoral Care Encounter/Spiritual Assessment Type of Contact [] Declined driller and broacher visit [] Patient/Family/Request visit [] Outpatient visit [] Follow-up visit [] Physician referral [] Code/Alert [x] Routine visit [] Staff referral [] Actively dying [] Patient sleeping [] Family support [] [] Out of room [] Palliative care [] [x] Receiving care in room [] Pre-surgical visit [] Trauma [x] Long length of stay [] ICU visit [] Other: Relational/Emotional Strength [] Patient feels connected with others/family/visitors/staff [] Distress [] Loneliness/isolation [] Abandonment Spirituality of Patient [] Person of Genesis [] Attends Rastafarian of their Genesis [] Believes in Prayer [] Reads Bible or Methodist materials [] There are Spiritual issues to be addressed Conveyancer Interventions [] Prayer [] Active listening [] Non-anxious presence [] Spiritual/emotional support [] Crisis/trauma care [] Spiritual counseling [] Bereavement support [] Provided bereavement packet [] Provided Bible/devotional materials [] Provided toy/stuffed animal, coloring book to patient or family member [] Provided Communion [] Anointing/[place] [] Salvation [] Completed spiritual assessment [] Other: Impact on Illness or Injury [] Angry [] Fearful [] Anxious [] Often cries [] Exhaustion [] Unable to work [] Unable to attend taoism [] Unable to walk/stand [] Unable to read [] Unable to drive [] Unable to eat/drink [] Unable to sleep [] Unable to be with family [] Patient intubated [] Other: Summary Patient was receiving care by the nursing staff at the time of the driller and broacher visit. Conveyancer referred the patient for a follow up visit by the oncoming driller and broacher. Patient visit was attempted by Conveyancer Marlo Lopez. Time spent with patient 3 minutes
[2019-12-05 16:27] LABS: Blood Urea Nitrogen 44 mg/dL (8-23); Calcium 8.3 mg/dL (8.5-10.5); Carbon Dioxide 20 mmol/L (22-29); Chloride 117 mmol/L (98-107); Glucose 260 mg/dL (65-115); Osmolality Calculated 315 mOsm/kg (285-295); Sodium 149 mmol/L (136-145)
[2019-12-05 16:55] LABS: Glucose Point of Care 251 mg/dL (70-110)
--- NOTE | 2019-12-05 17:27 | P.PN_ITS ---
Subjective Subjective: Interval history: mental status much improved today, she is able to talk to me and says thank you , its a nice day outside , declines help with eating, states she feels better. Na up at 152, urine output 2.9l after iv lasix yesetrday, LE continue to be swollen, K at 3.0,renal function stable Medications: Reviewed: Yes Vitals/I&O/Wt Last Vital Signs Temp 98.1 F 12/05/19 16:00 Pulse 87 12/05/19 16:00 Resp 17 12/05/19 16:00 BP 151/75 12/05/19 16:00 Pulse Ox 98 12/05/19 16:00 12/05/19 12/05/19 12/05/19 06:59 14:59 22:59 Intake Total 240 / 240 240 / 480 Output Total 1350 / 2250 700 / 700 Balance -1350 / -2090 240 / 240 -460 / -220 Physical Exam Narrative: EXAM NARRATIVE: GEN: Awake, alert and oriented CVS: S1S2 N RS: CTA B/L Abd: Soft, nt/nd , bs+ OCEAN FORWARDER: no focal neuro deficits ext: anasarca+, wound vac over LLE Urinary Catheter Management^: Field: Cath Placed During This Visit: no Urethral Indwelling: Yes Reason for Continuing Indwelling Catheter: Other Data : 12/05/19 04:40 12/05/19 15:50 A&P Assessment and plan (1) Toxic encephalopathy: -Multifactorial related to hypokalemia, uremia, ileus, previous stroke, possible UTI -Mentation waxing and waning,better today -Of note from patient's ER visit on 11/10/2019, her blood cultures grew group A strep pyogenes, repeat blood cultures negative -Chest x-ray no focal pneumonia -White blood cell count 9.2 -Follow urine cultures, urine culture positive for Yen, on fluconazole -daptomycin 4mg/kg q48hr as crcl less than 30 -Patient is on daptomycin for left lower extremity osteomyelitis, CPK 897 started at [facility] -C. difficile negative -Neurochecks, aspiration precautions, seizure precautions, cotinue nectar thick liquid diet Status: Acute (2) Ileus: -CT scan shows:The colon is diffusely to enlarged and air-filled measuring up to 11 cm in the cecal region. Motion artifact degrades theimages. -Status post decompressive colonoscopy, continues to have BM, improved now -Ileus likely secondary to hypokalemia, patient is receiving potassium replacement therapy -C. difficile negative Continue clears with aspiration precautions Surgery recommendations appreciated Status: Acute (3) Hypokalemia: -Likely secondary dehydration -now stabilized at >4 consistently Status: Acute (4) Acute kidney injury: -Likely sec to dehydration, poor oral intake - now resolved - stop sodium bicarbonate supplementation as may be contributing to hypernatremia -Patient does have uremia, but no evidence of severe uremic syndrome -CT scan of the abdomen and pelvis did not show any obstructive uropathy -Worsening anasarca, net + 5L since admission, lasix 60mg iv today. stop 1/2 NS Status: Acute (5) Atrial fibrillation: Continue telemetry monitoring Patient's creatinine clearance is less than 25, stop Eliquis Hold anticoagulation due to concerns for anemia, GI bleed Status: Acute (6) Peripheral vascular disease: -Status post right femoral stent -Status post left fem pop bypass -On aspirin, statin, Plavix, cilostazol on hold due to traction with fluconazole Status: Acute (7) Insulin dependent type 2 diabetes mellitus: -Hold home insulin -Low-dose sliding scale Status: Acute (8) History of amputation of lesser toe of left foot: Status: Inactive (9) Hypertension: -Continue home medication -Hold nephrotoxic agents Status: Acute (10) Hyperlipidemia: -Continue home medication Status: Acute (11) Hypothyroid: continue home medication Status: Acute (12) Anemia: Hemoglobin this morning 8.0 No overt signs of GI bleed, no bloody or black stools, no hemodynamic compromise Hemoccult stool negative Likely anemia secondary to acute renal failure, but cannot rule out slow GI bleed Plan is to hold all anticoagulation, aspirin, Plavix Will transfuse 1 unit PRBC, monitor hemoglobin Monitor for bloody or black stools Continue Protonix 40 twice daily Monitor mental status closely, neurochecks, monitor hemodynamics Discussed risks and benefits of holding anticoagulation, voiced understanding, all questions answered Status: Acute (13) Hypernatremia: This is active problem currently Creeping up NA to 152 Had stopped sodium bicarb earlier two days ago start d5w @ 50cc/hr, recheck in aftrenoon, if no improvement will likely need NGT placement with free water flushes Status: Acute Additional A&P Information Patient's at bedside, states that patient is full code Attestations Medical Necessity Statement*: mentation better today, likely discharge once NA started to trend down, currently at 152 Coding Level of Care Code Acute Floral Department Specialist for Chg Fwd Diagnoses Toxic encephalopathy G92 Ileus K56.7 Hypokalemia E87.6 Acute kidney injury N17.9 Atrial fibrillation I48.91 Peripheral vascular disease I73.9 Insulin dependent type 2 diabetes mellitus E11.9; Z79.4 History of amputation of lesser toe of left foot Z89.422 Hypertension I10 Hyperlipidemia E78.5 Hypothyroid E03.9 Anemia D64.9 Hypernatremia E87.0
[2019-12-05] MEDS: potassium chloride premix 40 MEQ/100 ML PREMIX 25 MEQ IV (17:48)
[2019-12-05] MEDS: FUROsemide 10 mg/mL SDV 4mL 40 MG IVP (17:48)
[2019-12-05 21:35] LABS: Glucose Point of Care 170 mg/dL (70-110)
[2019-12-06] VITALS (11 sets, daily range): BP systolic 137–178; BP diastolic 70–85; PULSE 68–92; RESP 16–20; TEMP 36.2–36.8; O2SAT 95–98
[2019-12-06 04:26] LABS: Alanine Aminotransferase 41 U/L (0-33); Albumin Level 2.9 g/dL (3.5-5.2); Alkaline Phosphatase 62 IU/L (35-105); Aspartate Amino Transferase 27 U/L (0-32); Blood Urea Nitrogen 43 mg/dL (8-23); Calcium 7.7 mg/dL (8.5-10.5); Carbon Dioxide 23 mmol/L (22-29); Chloride 117 mmol/L (98-107); Globulin 2.4 g/dL (1.3-4.6); Glucose 174 mg/dL (65-115); Osmolality Calculated 312 mOsm/kg (285-295); Sodium 150 mmol/L (136-145); Total Bilirubin 0.3 mg/dL (0.15-1.2); Total Protein 5.3 g/dL (6.6-8.7)
[2019-12-06] MEDS: dextrose 5% 1,000 ML 50 ML IV (06:12)
[2019-12-06 06:57] LABS: Glucose Point of Care 200 mg/dL (70-110)
[2019-12-06] MEDS: dilTIAZem ER (24HR) 240 mg Capsule PO (09:15)
[2019-12-06] MEDS: fluconazole 100 mg Tablet 200 MG PO (09:22)
[2019-12-06] MEDS: potassium chloride ER 10 mEq Tablet 40 MEQ PO (09:23)
[2019-12-06] MEDS: hydroCHLOROthiazide 25 mg Tablet PO (09:23)
[2019-12-06] MEDS: levothyroxine 100 mcg Tablet PO (09:24)
[2019-12-06] MEDS: losartan 50 mg Tablet 100 MG PO (09:24)
[2019-12-06 11:44] LABS: Glucose Point of Care 283 mg/dL (70-110)
[2019-12-06] MEDS: pantoprazole 40 mg SDV IVP ×2 (12:43→22:46)
[2019-12-06] MEDS: potassium chloride premix 40 MEQ/100 ML PREMIX 25 MEQ IV (15:39)
--- NOTE | 2019-12-06 15:40 | PM.PN ---
Subjective Subjective: Interval history: mental status same as yesterday. It is much improved over 2 days ago. Patient is able to speak in simple sentences today. She asked to be placed out of bed and into her chair this morning. Her appetite is back. She had 3 episodes of large BM last night. No vomiting. States she wants to advance her diet today. Medications: Reviewed: Yes Vitals/I&O/Wt Last Vital Signs Temp 97.9 F 12/06/19 15:38 Pulse 74 12/06/19 15:38 Resp 20 H 12/06/19 15:38 BP 142/80 12/06/19 15:38 Pulse Ox 95 12/06/19 15:38 12/06/19 12/06/19 12/06/19 06:59 14:59 22:59 Intake Total 988.333 / 1468.333 Output Total 1570 / 2270 375 / 375 Balance -581.667 / -801.667 -375 / -375 Physical Exam Narrative: EXAM NARRATIVE: GEN: Awake, alert, needs frequent reorientation CVS: S1S2 N RS: CTA B/L Abd: Soft, nt/nd , bs+ CORE FILER: no focal neuro deficits Ext: anasarca+, wound vac over LLE Urinary Catheter Management^: Field: Cath Placed During This Visit: no Urethral Indwelling: Yes Reason for Continuing Indwelling Catheter: Chronic Indwelling Urinary Catheter on Admission Data : 12/05/19 04:40 12/06/19 03:43 A&P Assessment and plan (1) Toxic encephalopathy: -Multifactorial related to hypokalemia, uremia, ileus, previous stroke, possible UTI, hypernatremia -Mentation waxing and waning, improving at this present time -Chest x-ray no focal pneumonia -Follow urine cultures, urine culture positive for Yen, on fluconazole, completed 7 days of treatment stopped today. -daptomycin 4mg/kg q48hr as crcl less than 30 -Patient is on daptomycin for left lower extremity osteomyelitis, CPK 897 started at [facility] , check another CK with morning labs. -Neurochecks, aspiration precautions, seizure precautions, cotinue nectar thick liquid diet, advance as tolerated Status: Acute (2) Ileus: -CT scan shows:The colon is diffusely to enlarged and air-filled measuring up to 11 cm in the cecal region. Motion artifact degrades theimages. -Status post decompressive colonoscopy, continues to have BM, improved now -Ileus likely secondary to hypokalemia, patient is receiving potassium replacement therapy -C. difficile negative Continue clears with aspiration precautions Surgery recommendations appreciated Status: Acute (3) Hypokalemia: Likely secondary to dehydration getting intermittent doses of Lasix. Potassium at 3.0 today. Does not like the taste of p.o. potassium therefore spits it up. Replace with 40 mEq IV today. Status: Acute (4) Acute kidney injury: -Likely sec to dehydration, poor oral intake, possibly also rhabdomyolysis given elevated CPK on admission. - now resolved - stop sodium bicarbonate supplementation as may be contributing to hypernatremia -Patient does have uremia, but no evidence of severe uremic syndrome -CT scan of the abdomen and pelvis did not show any obstructive uropathy -Worsening anasarca, now stable, net positive down from 5 L to 1.4 L at this present time. Net -800 cc yesterday, 2.1 L previously. Status: Acute (5) Atrial fibrillation: Continue telemetry monitoring Patient's creatinine clearance is less than 25, stop Eliquis Hold anticoagulation due to concerns for anemia, GI bleed Status: Acute (6) Peripheral vascular disease: -Status post right femoral stent -Status post left fem pop bypass -On aspirin, statin, Plavix, cilostazol at home. These medications were discontinued alongside of Eliquis due to concerns for GI bleed. Stool studies negative for occult blood from the . Resume Plavix Eliquis now. Closely monitor hemoglobin upon discharge. Additionally decompressive colonoscopy on the did not show any evidence of GI bleeding. Status: Acute (7) Insulin dependent type 2 diabetes mellitus: -Hold home insulin -Low-dose sliding scale Status: Acute (8) History of amputation of lesser toe of left foot: Status: Inactive (9) Hypertension: -Continue home medication -Hold nephrotoxic agents Status: Acute (10) Hyperlipidemia: -Continue home medication Status: Acute (11) Hypothyroid: continue home medication Status: Acute (12) Anemia: Hemoglobin this morning 8.0 No overt signs of GI bleed, no bloody or black stools, no hemodynamic compromise Hemoccult stool negative Resume Eliquis and Plavix Will transfuse 1 unit PRBC, monitor hemoglobin Monitor for bloody or black stools Continue Protonix 40 twice daily Monitor mental status closely, neurochecks, monitor hemodynamics Discussed risks and benefits of holding anticoagulation, voiced understanding, all questions answered Status: Acute (13) Hypernatremia: This is active problem currently Na at 150 now Had stopped sodium bicarb earlier two days ago Continue d5W @ 50 cc/hr Status: Acute Attestations Medical Necessity Statement*: slowly improving, resume anticoagulation, monitor HB, check C diff panel Coding Level of Care Code Acute Family Support Coordinator for Chg Fwd Diagnoses Toxic encephalopathy G92 Ileus K56.7 Hypokalemia E87.6 Acute kidney injury N17.9 Atrial fibrillation I48.91 Peripheral vascular disease I73.9 Insulin dependent type 2 diabetes mellitus E11.9; Z79.4 History of amputation of lesser toe of left foot Z89.422 Hypertension I10 Hyperlipidemia E78.5 Hypothyroid E03.9 Anemia D64.9 Hypernatremia E87.0
[2019-12-06 16:42] LABS: Glucose Point of Care 217 mg/dL (70-110)
[2019-12-06] MEDS: FUROsemide 10 mg/mL SDV 4mL 40 MG IVP (17:40)
[2019-12-06] MEDS: apixaban 5 mg Tablet PO (17:40)
[2019-12-06 20:33] LABS: Glucose Point of Care 195 mg/dL (70-110)
[2019-12-06] MEDS: atorvastatin 40 mg Tablet PO (20:56)
[2019-12-07] VITALS (10 sets, daily range): BP systolic 127–133; BP diastolic 74–80; PULSE 62–81; RESP 17–18; TEMP 36.3–36.8; O2SAT 95–98
[2019-12-07] MEDS: dextrose 5% 1,000 ML 50 ML IV (02:12)
[2019-12-07 04:12] LABS: Basophils % 0.1 %; Eosinophils # 0.1 10^3/uL (0.0-0.8); Eosinophils % 1.4 %; Hematocrit 31.4 % (37.0-47.0); Hemoglobin 9.9 g/dL (11.5-15.3); Lymphocytes # 2.1 10^3/uL (0.8-4.8); Lymphocytes % 22.6 %; Mean Corpuscular HGB Conc 31.5 g/dL (30.0-36.0); Mean Corpuscular Hemoglobin 29.7 pg (28.0-34.0); Mean Corpuscular Volume 94.3 fL (81-99); Mean Platelet Volume 11.7 fL (7.4-10.4); Monocytes # 0.6 10^3/uL (0.2-0.9); Monocytes % 6.5 %; Neutrophils # 6.37 10^3/uL (1.8-7.7); Nucleated Red Blood Cells % 0 %; Platelet Count 217 10^3/cmm (130-400); Red Blood Count 3.33 10^6/uL (4.1-5.3); Red Cell Distribution Width 18.4 % (12.1-15.1); White Blood Count 9.2 10^3/uL (4.0-10.0)
[2019-12-07 04:33] LABS: Alanine Aminotransferase 38 U/L (0-33); Albumin Level 2.6 g/dL (3.5-5.2); Alkaline Phosphatase 65 IU/L (35-105); Aspartate Amino Transferase 36 U/L (0-32); Blood Urea Nitrogen 31 mg/dL (8-23); Calcium 7.9 mg/dL (8.5-10.5); Carbon Dioxide 24 mmol/L (22-29); Chloride 114 mmol/L (98-107); Creatine Phosphokinase 238 U/L (26-192); Globulin 2.5 g/dL (1.3-4.6); Glucose 160 mg/dL (65-115); Osmolality Calculated 303 mOsm/kg (285-295); Sodium 146 mmol/L (136-145); Total Bilirubin 0.4 mg/dL (0.15-1.2); Total Protein 5.1 g/dL (6.6-8.7)
[2019-12-07 06:46] LABS: Glucose Point of Care 204 mg/dL (70-110)
[2019-12-07] MEDS: levothyroxine 100 mcg Tablet PO (09:21)
[2019-12-07] MEDS: dilTIAZem ER (24HR) 240 mg Capsule PO (09:21)
[2019-12-07] MEDS: hydroCHLOROthiazide 25 mg Tablet PO (09:21)
[2019-12-07] MEDS: clopidogrel 75 mg Tablet PO (09:21)
[2019-12-07] MEDS: losartan 50 mg Tablet 100 MG PO (09:22)
[2019-12-07 10:57] LABS: Glucose Point of Care 214 mg/dL (70-110)
[2019-12-07] MEDS: pantoprazole 40 mg SDV IVP (11:23)
[2019-12-07] MEDS: potassium chloride premix 40 MEQ/100 ML PREMIX 25 MEQ IV (11:23)
--- NOTE | 2019-12-07 12:47 | PM.DCS ---
Discharge Providers Date of Admission: 11/27/19 18:17 Date of Discharge: December 07, 2019 Attending Provider at Admission: Lexa Penaloza MD Attending Provider at Discharge: Linn Gordon MD Primary Care Provider: Aldo Goodrich MD Diagnoses at Discharge Discharge Diagnosis (1) Toxic encephalopathy: Status: Acute (2) Ileus: Status: Acute (3) Hypokalemia: Status: Acute (4) Acute kidney injury: Status: Acute (5) Atrial fibrillation: Status: Acute (6) Peripheral vascular disease: Status: Acute (7) Insulin dependent type 2 diabetes mellitus: Status: Acute (8) History of amputation of lesser toe of left foot: Status: Inactive (9) Hypertension: Status: Acute (10) Hyperlipidemia: Status: Acute (11) Hypothyroid: Status: Acute (12) Anemia: Status: Acute (13) Hypernatremia: Status: Acute Reason for Visit Reason for Visit: ABNORMAL LABS/ LETHARGIC Hospital Course Discharge Summary: Marissa Lara is a 79 year old female with a past medical history of left-sided CVA with residual right-sided weakness, right facial droop, productive aphasia roughly a week ago admitted at [facility], right lower extremity osteomyelitis status post second and third digit amputation, with wound VAC in place on daptomycin, peripheral vascular disease on aspirin, Plavix, clots resolved, status post stenting and thrombectomy procedure in [facility], insulin-dependent type 2 diabetes mellitus, history of atrial fibrillation on Eliquis, hypothyroidism, hypertension, hyperlipidemia who presented on 11/26 to [facility] due to concerns for not acting appropriately, less vocal, abdominal distention, hypokalemia, and elevated kidney function. Work-up in the emergency room showed hypokalemia, potassium 2.7, creatinine of 2.8, BUN of 80, BNP is 34,000, white blood cell count 13.1, neutrophilic, UA still pending, chest x-ray no focal pneumonia, CT of the abdomen shows that the entire colon is air-filled and a large measuring up to 11 cm, may just suggest ileus. She underwent decompressive colonoscopy on 11/27 ans since then has had slowly improving bowel movements, currently at 2-3 per day. Her hospital course has been fairly complicated as outlined below: (1) Toxic encephalopathy: -Multifactorial related to hypokalemia, uremia, ileus, previous stroke, possible UTI, hypernatremia -Mentation waxing and waning, improving at this present time, able to speak few short sentences -Chest x-ray no focal pneumonia -urine culture positive for Yen, on fluconazole, completed 7 days of treatment. -daptomycin 4mg/kg q48hr as crcl less than 30 -Patient is on daptomycin for left lower extremity osteomyelitis, CPK 897 at admission, trended down to ~250 2) Ileus: CT scan shows:The colon is diffusely to enlarged and air-filled measuring up to 11 cm in the cecal region. Motion artifact degrades theimages. -Status post decompressive colonoscopy, continues to have BM, improved now -Ileus likely secondary to hypokalemia, patient is receiving potassium replacement therapy -C. difficile negative Continue clears with aspiration precautions, advanced to full liquids - may advance to mechanical soft as tolerated by patient (3) Hypokalemia: Likely secondary to dehydration and getting intermittent doses of Lasix for lower extremity edema (4) Acute kidney injury: -Likely sec to dehydration, poor oral intake, possibly also rhabdomyolysis given elevated CPK on admission. - now resolved -Patient does have uremia, but no evidence of severe uremic syndrome -CT scan of the abdomen and pelvis did not show any obstructive uropathy -Worsening anasarca, now stable, net positive down from 5 L to 600cc. Intermittent lasix may be continued as appropriate per PA physician. Last dose of 40mg iv lasix on 12/05 (5) Atrial fibrillation: Now rate controlled, Eliquis resumed on 12/05 FOBT negative, no bleeding noted on decompressive colonoscopy (6) Peripheral vascular disease: -Status post right femoral stent -Status post left fem pop bypass -On aspirin, statin, Plavix, cilostazol prior to admission. These medications were discontinued alongside of Eliquis due to concerns for GI bleed. Subsequent evaluation revealed Stool studies negative for occult blood from the . Resumed Plavix and Eliquis on 12/05. ASA resumed on discharge. Cilostizol stopped. Closely monitor hemoglobin upon discharge. please follow up with patient;s vascular surgeon or oil well driller to review appropriate antiplatelet and anticoagulation regimen for her (7) Insulin dependent type 2 diabetes mellitus: -Low-dose sliding scale insulin 9) Hypertension: AMIRA resumed on discharge. Follow renal function closely. 10) Hypernatremia: Na improved from 152 to 146 upon discharge. Treated with d5W. Physical Exam Narrative: EXAM NARRATIVE: EXAM NARRATIVE: GEN: Awake, alert, needs frequent reorientation, answers simple questions and speaks few short sentences CVS: S1S2 N RS: CTA B/L Abd: Soft, nt/nd , bs+ Ext: anasarca+, improving, wound vac over LLE Urinary Catheter Management^: Field: Cath Placed During This Visit: no Urethral Indwelling: Yes Reason for Continuing Indwelling Catheter: Chronic Indwelling Urinary Catheter on Admission Discharge Data Data Completed and Pending: Completed Studies During Hospitalization Category Date Time Status CT abdomen pelvis wo con [id number] Urge nt Cat Scan 11/27/19 17:[address] head wo con* 7 [id number] Urgent Cat Scan 11/27/19 15:59 Completed XR KUB portable 7 4018 QAM Exams 11/28/19 06:00 Completed XR chest 1V ludwig ble [id number] Urgent Exams 11/27/19 15:59 Completed CV echo complete* [id number] Routine Ultrasound 11/28/19 19:20 Completed US renal BI* [id number] Routine Ultrasound 11/28/19 13:07 Completed Pending at discharge Category Date Time Status CDIFF [Clostridio ides Difficile PCR ] Routine Lab 12/06/19 00:30 Results Labs from last 24 hours 12/07/19 12/07/19 12/07/19 10:53 06:41 03:39 WBC RBC Hgb Hct MCV MCH MCHC RDW Plt Count MPV Neut % (Auto) Lymph % (Auto) [place] % (Auto) Eos % (Auto) Baso % (Auto) Neut # (Auto) Lymph # (Auto) [place] # (Auto) Eos # (Auto) Baso # (Auto) Nucleated RBC % (a uto) Nucleated RBCs # Sodium Potassium Chloride Carbon Dioxide Anion Gap BUN Creatinine GFR Calculation Glucose POC Glucose 214 204 Calculated Osmolal ity Calcium Total Bilirubin AST ALT Alkaline Phosphata se Creatine Kinase 238 H Total Protein Albumin Globulin 12/07/19 12/07/19 12/06/19 03:39 03:39 20:26 WBC 9.2 RBC 3.33 L Hgb 9.9 L Hct 31.4 L MCV 94.3 MCH 29.7 MCHC 31.5 RDW 18.4 H Plt Count 217 MPV 11.7 H Neut % (Auto) 69.0 Lymph % (Auto) 22.6 [place] % (Auto) 6.5 Eos % (Auto) 1.4 Baso % (Auto) 0.1 Neut # (Auto) 6.37 Lymph # (Auto) 2.1 [place] # (Auto) 0.6 Eos # (Auto) 0.1 Baso # (Auto) 0.0 Nucleated RBC % (a uto) 0 Nucleated RBCs # 0.0 Sodium 146 H Potassium 3.0 L Chloride 114 H Carbon Dioxide 24 Anion Gap 11.0 BUN 31 H Creatinine 1.6 H GFR Calculation Not Reportable Glucose 160 H POC Glucose 195 Calculated Osmolal ity 303 H Calcium 7.9 L Total Bilirubin 0.4 AST 36 H ALT 38 H Alkaline Phosphata se 65 Creatine Kinase Total Protein 5.1 L Albumin 2.6 L Globulin 2.5 12/06/19 16:37 WBC RBC Hgb Hct MCV MCH MCHC RDW Plt Count MPV Neut % (Auto) Lymph % (Auto) [place] % (Auto) Eos % (Auto) Baso % (Auto) Neut # (Auto) Lymph # (Auto) [place] # (Auto) Eos # (Auto) Baso # (Auto) Nucleated RBC % (a uto) Nucleated RBCs # Sodium Potassium Chloride Carbon Dioxide Anion Gap BUN Creatinine GFR Calculation Glucose POC Glucose 217 Calculated Osmolal ity Calcium Total Bilirubin AST ALT Alkaline Phosphata se Creatine Kinase Total Protein Albumin Globulin Vitals: Last Vital Signs Temp 97.4 F L 12/07/19 11:44 Pulse 76 12/07/19 11:44 Resp 18 12/07/19 11:44 BP 132/80 12/07/19 11:44 Pulse Ox 96 12/07/19 11:44 Discharge Plan Discharge Patient Disposition: Xfer [facility] Condition: Fair Prescriptions: New Protonix 40 mg tablet,delayed release (DR/EC) 40 mg PO BID 14 Days Qty: 28 RF: 0 Continued diltiazem HCl 240 mg capsule,extended release 24hr 240 mg PO DAILY RF: 0 clopidogrel 75 mg tablet 75 mg PO DAILY RF: 0 aspirin [Aspir-81] 81 mg Tablet,Delayed Release (Dr/Ec) 81 mg PO DAILY RF: 0 levothyroxine 100 mcg tablet 100 mcg PO DAILY RF: 0 losartan-hydrochlorothiazide 100-25 mg tablet 1 tab PO DAILY RF: 0 atorvastatin 40 mg Tablet 40 mg PO BEDTIME RF: 0 acetaminophen 325 mg Tablet 650 mg PO Q6H PRN (Reason: Pain) RF: 0 Lantus U-100 Insulin 100 unit/mL Solution 30 unit SUBCUT BEDTIME RF: 0 albuterol sulfate 2.5 mg /3 mL (0.083 %) Solution For Nebulization 2.5 mg inhalation Q2H PRN (Reason: Shortness Of Breath) RF: 0 Milk of Magnesia 400 mg/5 mL Suspension 30 ml PO DAILY PRN (Reason: Constipation) RF: 0 Novolog U-100 Insulin aspart 100 unit/mL Solution 5 unit SUBCUT TID RF: 0 Novolog U-100 Insulin aspart 100 unit/mL Solution See Rx Instructions .ROUTE .COMPLEX RF: 0 bisacodyl 10 mg Suppository 10 mg IA Q12H PRN (Reason: Constipation) RF: 0 Fleet Enema 19-7 gram/118 mL Enema 118 ml IA DAILY PRN (Reason: Constipation) RF: 0 daptomycin 500 mg Recon Soln 660 mg IV QAM RF: 0 Eliquis 5 mg Tablet 5 mg PO BID RF: 0 Dulcolax (bisacodyl) 10 mg IA PRN RF: 0 Held cilostazol 100 mg tablet 100 mg PO BIDAC RF: 0 Hold Instructions: Resume on 12/16/19. resume only after following with your oil well driller and/or vascular doctor Discontinued naproxen sodium [Aleve] 220 mg Tablet 440 mg PO DAILY PRN (Reason: Pain) RF: 0 Discharge Orders: Discharge Order (Routine); Ordered 12/07/19 Ordered By: Linn Gordon Referrals: [facility] [Outside] Discharge Diet: Advance as tolerated and Soft Mechanical Discharge Activity: As per PT/OT instructions Patient Instructions: GI Discharge Instructions Discharge Attestations Time Spent in Discharge Care*: greater than 30 min Specific Discharge Activities: Specific discharge activities: discussing with manager rn case/social workers/dc planners, documenting/other paperwork and evaluating patient/reviewing data Quality Metrics Clinical Quality Measures During this hospital stay, did patient experience: None Coding Level of Care Code Acute Medical Library Assistant for g Fwd Diagnoses Toxic encephalopathy G92 Ileus K56.7 Hypokalemia E87.6 Acute kidney injury N17.9 Atrial fibrillation I48.91 Peripheral vascular disease I73.9 Insulin dependent type 2 diabetes mellitus E11.9; Z79.4 History of amputation of lesser toe of left foot Z89.422 Hypertension I10 Hyperlipidemia E78.5 Hypothyroid E03.9 Anemia D64.9 Hypernatremia E87.0
--- NOTE | 2019-12-07 14:42 | PC.NURSE ---
Patient given bedbath, shaved facial hairs, changed dressing to picc line per energy conservation technician, with stay lock and film stressing dated and timed. vaughan cath patent with stay lock to thigh. Patient wound vac to left foot intact, and to vac with only 70 mls of drainage. Patient rec raj/cath care.
--- NOTE | 2019-12-07 14:49 | PC.NURSE ---
Report given to nurse at [facility]. Family notified of trans to NH, they spoke to patient on phone.
== END 2019-12-07 16:27 | disposition skilled nursing facility (03) | DRG 344 ==
LOC: ER 15:40 → MEDSURG 18:39
PROVIDERS: Family Medicine; Hospitalist; Surgery; Admitting Provider Family Medicine; PCP Family Medicine; Visit Provider Student in an Organized Health Care Education/Training Program
PROC: 0DJD8ZZ Inspection of Lower Intestinal Tract, Via Natural or Artificial Opening Endoscopic (ICD-10-PCS; CPT 45378; principal; 2019-11-28 15:55)
DX: K56.7 Ileus, unspecified (principal); G92 Toxic encephalopathy; L03.116 Cellulitis of left lower limb; I69.951 Hemiplegia and hemiparesis following unspecified cerebrovascular disease affecting right dominant side; N17.9 Acute kidney failure, unspecified; B37.49 Other urogenital candidiasis; M62.82 Rhabdomyolysis; M86.9 Osteomyelitis, unspecified; I69.920 Aphasia following unspecified cerebrovascular disease; I69.992 Facial weakness following unspecified cerebrovascular disease; E11.51 Type 2 diabetes mellitus with diabetic peripheral angiopathy without gangrene; Z79.02 Long term (current) use of antithrombotics/antiplatelets; Z79.01 Long term (current) use of anticoagulants; Z86.718 Personal history of other venous thrombosis and embolism; I48.91 Unspecified atrial fibrillation; E03.9 Hypothyroidism, unspecified; I10 Essential (primary) hypertension; E78.5 Hyperlipidemia, unspecified; E87.6 Hypokalemia; Z79.4 Long term (current) use of insulin; Z95.820 Peripheral vascular angioplasty status with implants and grafts; D64.9 Anemia, unspecified; Z89.421 Acquired absence of other right toe(s); E11.69 Type 2 diabetes mellitus with other specified complication
CPT/HCPCS: 11044; 12345; 36415; 36416; 36430; 36592; 45393; 70450; 71045; 74018; 74176; 76770; 80048; 80053; 80061; 81001; 82274; 82550; 82570; 82962; 83036; 83735; 83880; 84100; 84145; 84300; 84443; 85025; 85610; 85651; 85730; 85999; 86140; 86850; 86900; 86920; 87040; 87086; 87106; 87493; 92507; 92610; 93005; 93306; 94664; 96372; 96375; 97110; 97112; 97161; 97165; 97530; 97535; 99281; C9113; G0463; J0360; J0696; J0878; J1644; J1650; J1815; J1940; J2704; J3480; J7030; P9016

== ENCOUNTER 2019-12-10 10:07 | Outpatient (CLI) | payer OTHER, MEDICARE, SELFPAY ==
[2019-12-10 10:45] LABS: Blood Urea Nitrogen 31 mg/dL (8-23); Calcium 7.2 mg/dL (8.5-10.5); Carbon Dioxide 24 mmol/L (22-29); Chloride 102 mmol/L (98-107); Glucose 275 mg/dL (65-115); Osmolality Calculated 289 mOsm/kg (285-295); Sodium 136 mmol/L (136-145)
== END 2019-12-10 10:08 | disposition home or self-care (01) ==
PROVIDERS: PCP Family Medicine; Visit Provider Internal Medicine
DX: E87.6 Hypokalemia (principal)
CPT/HCPCS: 80048

== ENCOUNTER 2019-12-11 12:53 | Outpatient (CLI) | payer MEDICARE, OTHER, SELFPAY | END 2019-12-11 12:54 | disposition home or self-care (01) | LOC: WOUND 12:54 | PROVIDERS: PCP Family Medicine; Visit Provider Emergency Medicine | DX: E11.621 Type 2 diabetes mellitus with foot ulcer (principal); L97.524 Non-pressure chronic ulcer of other part of left foot with necrosis of bone; Z89.422 Acquired absence of other left toe(s) | CPT/HCPCS: 11042; 97605 ==

== ENCOUNTER 2019-12-18 14:51 | Outpatient (CLI) | payer MEDICARE, OTHER, SELFPAY | END 2019-12-18 14:52 | disposition home or self-care (01) | LOC: WOUND 14:52 | PROVIDERS: PCP Family Medicine; Visit Provider Nurse Practitioner Family | DX: E11.621 Type 2 diabetes mellitus with foot ulcer (principal); L97.526 Non-pressure chronic ulcer of other part of left foot with bone involvement without evidence of necrosis; Z89.422 Acquired absence of other left toe(s) | CPT/HCPCS: 11042 ==

== ENCOUNTER 2019-12-25 14:55 | Outpatient (CLI) | payer MEDICARE, OTHER, SELFPAY | END 2019-12-25 14:56 | disposition home or self-care (01) | LOC: WOUND 14:56 | PROVIDERS: PCP Family Medicine; Visit Provider Emergency Medicine | DX: E11.621 Type 2 diabetes mellitus with foot ulcer (principal); L97.522 Non-pressure chronic ulcer of other part of left foot with fat layer exposed; Z89.422 Acquired absence of other left toe(s) | CPT/HCPCS: 11044; 87070; 87077; 87176; 87186; 87205 ==

== ENCOUNTER 2020-01-04 10:51 | Emergency (ER) | payer MEDICARE, OTHER, SELFPAY ==
[2020-01-04] VITALS (10 sets, daily range): BP systolic 113–132; BP diastolic 63–96; PULSE 69–97; RESP 14–20; TEMP 36.4; O2SAT 96–100
--- NOTE | 2020-01-04 11:03 | XRR_ITS ---
PROCEDURE INFORMATION: Exam: XR Chest, 1 View Exam date and time: 01/04/2020 1:43 PM Age: 79 years old Clinical indication: Dyspnea and other: Covid +; Abd distention; Patient HX: Covid+; Dyspnea; Abd distention; Additional info: Abd pain, covid TECHNIQUE: Imaging protocol: XR of the chest Views: 1 view. COMPARISON: CR XR chest 1V portable [id number] 11/27/2019 4:10 PM FINDINGS: Tubes, catheters and devices: There is a right jugular central line present with the tip at/near the cavoatrial junction. Lungs: Decreased lung volumes. Linear atelectasis in the mid lung zones bilaterally. Pleural space: No pleural effusion or pneumothorax. Heart/Mediastinum: The cardiac silhouette is not enlarged. The mediastinal contours are normal. Vasculature: The thoracic aorta is atherosclerotic. Bones/joints: Multilevel disc degeneration in the thoracic spine. Gastrointestinal tract: There is gaseous distention of the visualize portion of the colon, which could be due to large bowel obstruction or an ileus. XR/XR chest 1V portable [id number] IMPRESSION: Decreased lung volumes. Bilateral atelectasis.
--- NOTE | 2020-01-04 11:03 | CTR_ITS ---
PROCEDURE INFORMATION: Exam: CT Abdomen And Pelvis With Contrast Exam date and time: 01/04/2020 11:06 AM Age: 79 years old Clinical indication: Abdominal pain; Additional info: Abd pain, distention TECHNIQUE: Imaging protocol: Computed tomography of the abdomen and pelvis with intravenous contrast. Radiation optimization: All CT scans at this facility use at least one of these dose optimization techniques: automated exposure control; mA and/or kV adjustment per patient size (includes targeted exams where dose is matched to clinical indication); or iterative reconstruction. Contrast material: VISI 320; Contrast volume: 95 ml; Contrast route: INTRAVENOUS (IV); COMPARISON: CT abdomen pelvis wo con [id number] 11/27/2019 5:21 PM RADIATION DOSE METRICS: Total DLP (mGy-cm): 95 FINDINGS: Pleural space: Small bilateral pleural effusions with adjacent compressive atelectasis. There are ground-glass opacities at the lung bases. Heart: There are calcifications in the mitral valve. Liver: Normal. No mass. Gallbladder and bile ducts: Cholelithiasis. Pancreas: Normal. No ductal dilation. Spleen: Normal. No splenomegaly. Adrenals: Normal. No mass. Kidneys and ureters: Left renal scarring. Stomach and bowel: Large bowel is dilated.There are air-fluid levels in the distal colon suggesting mild nonspecific colitis versus other diarrheal illness. There is rectal mucosal thickening. 14 mm nonspecific hyperdensity in the rectum. Appendix: No evidence of appendicitis. Intraperitoneal space: Unremarkable. No free air. No significant fluid collection. Vasculature: Multivessel atherosclerotic disease which involves the coronary arteries. Lymph nodes: Unremarkable. No enlarged lymph nodes. Bladder: There is a Field catheter in the bladder. The bladder is compressed by the dilated large bowel loops. Reproductive: The uterus is not visualized, consistent with hysterectomy. Bones/joints: Unremarkable. No acute fracture. Soft tissues: Soft tissue anasarca. Other findings: Calcified density in the left ventricle indicates a prior myocardial infarction. CT/CT abdomen pelvis w con* [id number] IMPRESSION: 1. Large bowel is dilated with air-fluid levels. Differential includes obstruction and/or ileus. 2. There is rectal mucosal thickening. Differential includes neoplasm and proctitis. 3. Small bilateral pleural effusions with adjacent compressive atelectasis. 4. Ground-glass opacities at the lung bases may represent pulmonary edema, atelectasis, pneumonitis, and or pneumonia. 5. Soft tissue anasarca. Radiation Dose CTDIVOL = (mGy): DLP = 95 (mGy-cm)
--- NOTE | 2020-01-04 11:05 | ECG_ITS ---
[facility] Test Date: 2020-01-04 Pat Name: Marissa Lara Department: Room: Gender: Female [employer] Worker: : 1940 Requested By: Dora Lopez Order Number: [id number] Gale MD: Jamal Arias M.D. Measurements Intervals [place] Rate: 80 P: 5 AK: 149 QRS: 70 QRSD: 129 T: 32 QT: 408 QTc: 473 Interpretive Statements SINUS RHYTHM WITH OCCASIONAL SUPRAVENTRICULAR PREMATURE COMPLEXES RIGHT BUNDLE BRANCH BLOCK [120+ ms QRS DURATION, UPRIGHT V1, 40+ ms S IN I/aVL/V4/V5/V6] Compared to ECG 11/27/2019 16:45:30 Right bundle-branch block now present Ventricular premature complex(es) no longer present T-wave abnormality no longer present Possible ischemia no longer present Electronically Signed On 01-05-2020 19:13:54 CDT by Jamal Arias M.D. [id number]
--- NOTE | 2020-01-04 11:09 | ED_ITS ---
HPI - General Adult General: Chief complaint: General Medical Stated complaint: DISTENDED ABD; COVID + Time Seen by Provider: 01/04/20 10:53 History of Present Illness: HPI narrative: This patient is a 79-year-old female from a residential facility. She is known COVID positive but she is sent here for abdominal pain today. Apparently she has been having abdominal pain and bloating over the past week. She is not able to provide me with much more history than that. She is quite distended. She has a wound VAC on her foot. She has an indwelling Field catheter. She has what appears to be a central access in her right upper chest. half-way reported that she had a normal bowel movement yesterday. That is the extent of the information available at the time of initial evaluation. Onset (ago): unknown Location: abdomen Radiation: back Severity: severe Review of Systems General: Reports: ROS unobtainable due to mental status PFSH ED PFSH: Medical History Diabetes mellitus Femoral-popliteal bypass graft occlusion, left History of amputation of toe History of appendicitis History of diabetes mellitus History of thyroid disease Hyperlipidemia Hypertension Hypertension Peripheral artery disease Surgical History History of amputation of lesser toe of left foot History of hysterectomy Social History Smoking and tobacco status: never smoked Alcohol intake: never Physical Exam Const: COMMON NORMALS: alert GENERAL APPEARANCE: cooperative and in distress NUTRITIONAL APPEARANCE: obese ORIENTATION/CONSCIOUSNESS: Yes awake and Yes confused HENMT: HEAD & SCALP: normal to inspection FACE & SINUS: normal facial exam Eye: GENERAL EYE: appearance normal, both eyes and all related structures Neck/C-Spine: COMMON NORMALS: supple, no meningeal signs and no JVD Chest: COMMONS NORMALS: normal inspection of the chest Resp: COMMON NORMALS: normal respiratory effort, No use of accessory muscles a nd clear to auscultation bilaterally AUSCULTATION: clear to auscultation bilaterally Cardio: COMMON NORMALS: no JVD, regular rate, regular rhythm and No murmurs present (Cardio) RATE: regular rate RHYTHM: regular rhythm GI: INSPECTION: Yes abdominal distension (Marked) AUSCULTATION: Yes High- pitched bowel sounds present PALPATION: Yes Firmness to palpation present (GI) and Yes Tenderness to palpation present (GI) PERCUSSION: tympanic to percussion Back/Pelvis: COMMON NORMALS: thoracic and lumbar spine normal to inspection Extremity: COMMON NORMALS: normal to inspection Neuro: COMMON NORMALS: moves all extremities, no focal motor deficits and no sensory deficits noted SENSORIUM/ORIENTATION: Yes alert MENINGEAL SIGNS: Yes no meningeal signs Psych: COMMON NORMALS: mental status grossly normal, cooperative and normal affect Skin: COMMON NORMALS: no rashes or lesions noted and turgor normal GENERAL SKIN EXAM: no rashes or lesions noted and turgor normal Course ED course: Patient is definitely uncomfortable. She was given some pain medication. She is being kept on COVID precautions. It does not appear that her condition today is related to COVID. There was some delay in getting labs and imaging. I am still waiting for the CT result. Reevaluation(s): Reevaluation #1: CT shows marked dilation of the bowel. About a month ago she had the similar presentation. She was treated with a decompressive colonoscopy. Today am concerned with her CO2 being low. Her lactate is still in the normal range but on the high end. She seems to be doing okay from a COVID standpoint but she does need treatment for her bowel issues. We do not have a bed to admit her here. [facility] did accept her but there will be a 3-hour delay for transport. I did contact Dr. Aldana who is on-call for GI to see if he felt like we could temporize her condition at all while were waiting. He suggested we insert a rectal tube. Vital Signs: Vital signs: Vital Signs Temperature 97.6 F 01/04/20 11:02 Pulse Rate 74 01/04/20 19:30 Respiratory Rate 15 01/04/20 19:30 Blood Pressure 127/63 01/04/20 19:30 Pulse Oximetry 97 01/04/20 19:30 MDM - General Adult Lab Data: Labs: Lab Results 01/04/20 01/04/20 01/04/20 Range/Units 11:43 11:43 11:43 WBC 7.9 (4.0-10.0) 10^3/ uL RBC 3.39 L (4.1-5.3) 10^6/u L Hgb 9.9 L (11.5-15.3) g/dL Hct 31.9 L (37.0-47.0) % MCV 94.1 (81-99) fL MCH 29.2 (28.0-34.0) pg MCHC 31.0 (30.0-36.0) g/dL RDW 17.6 H (12.1-15.1) % Plt Count 601 H (130-400) 10^3/c mm MPV 9.5 (7.4-10.4) fL Neut % (Auto) 65.3 % Lymph % (Auto) 30.1 % [place] % (Auto) 3.7 % Eos % (Auto) 0.0 % Baso % (Auto) 0.5 % Neut # (Auto) 5.16 (1.8-7.7) 10^3/u L Lymph # (Auto) 2.4 (0.8-4.8) 10^3/u L [place] # (Auto) 0.3 (0.2-0.9) 10^3/u L Eos # (Auto) 0.0 (0.0-0.8) 10^3/u L Baso # (Auto) 0.0 (0.0-0.1) 10^3/u L Nucleated RBC % (a uto) 0 % Nucleated RBCs # 0.0 /100WBC PT 20.60 H (12.1-14.9) SECO NDS INR 1.70 H (0.8-1.2) D-Dimer 1.69 H (0-0.59) ug/mIFE U Sodium 135 L (136-145) mmol/L Potassium 4.3 (3.5-5.1) mmol/L Chloride 105 (98-107) mmol/L Carbon Dioxide 14 L (22-29) mmol/L Anion Gap 20.3 H (5-19) BUN 18 (8-23) mg/dL Creatinine 1.1 H (0.5-0.9) mg/dL GFR Calculation Not Reportable Glucose 114 (65-115) mg/dL Calculated Osmolal ity 283 L (285-295) mOsm/k g Lactic Acid (0.5-2.2) mmol/L Calcium 8.0 L (8.5-10.5) mg/dL Magnesium 1.6 L (1.7-2.3) mg/dL Total Bilirubin 0.2 (0.15-1.2) mg/dL AST 28 (0-32) U/L ALT 27 (0-33) U/L Alkaline Phosphata se 117 H (35-105) IU/L Troponin T Baselin e (0-10) ng/L Troponin T 120 Min [place] (0-10) ng/L Delta Troponin T (0-10) ABS# C-Reactive Protein 10.7 H (0.0-4.9) mg/L NT-Pro-B Natriuret Pep 3548 H (0-450) pg/mL Total Protein 6.5 L (6.6-8.7) g/dL Albumin 3.2 L (3.5-5.2) g/dL Globulin 3.3 (1.3-4.6) g/dL Lipase 25 (13-60) U/L Procalcitonin 0.10 (0-0.5) ng/mL Urine Color (Yellow) Urine Appearance (CLEAR) Urine pH (5-7) Ur Specific Gravit y (1.005-1.030) Urine Protein (Negative) Urine Glucose (UA) (Normal) Urine Ketones (Negative) Urine Blood (Negative) Urine Nitrate (Negative) Urine Bilirubin (Negative) Urine Urobilinogen (Negative) mg/dL Ur Leukocyte [place] ase (Negative) Urine RBC (0-2) /hpf Urine WBC (0-5) /hpf Ur Squamous Epith Cells (0-5) /hpf Amorphous Sediment Urine Bacteria (NONE) /hpf Urine Mucus /hpf 01/04/20 01/04/20 01/04/20 Range/Units 11:43 11:43 13:44 WBC (4.0-10.0) 10^3/ uL RBC (4.1-5.3) 10^6/u L Hgb (11.5-15.3) g/dL Hct (37.0-47.0) % MCV (81-99) fL MCH (28.0-34.0) pg MCHC (30.0-36.0) g/dL RDW (12.1-15.1) % Plt Count (130-400) 10^3/c mm MPV (7.4-10.4) fL Neut % (Auto) % Lymph % (Auto) % [place] % (Auto) % Eos % (Auto) % Baso % (Auto) % Neut # (Auto) (1.8-7.7) 10^3/u L Lymph # (Auto) (0.8-4.8) 10^3/u L [place] # (Auto) (0.2-0.9) 10^3/u L Eos # (Auto) (0.0-0.8) 10^3/u L Baso # (Auto) (0.0-0.1) 10^3/u L Nucleated RBC % (a uto) % Nucleated RBCs # /100WBC PT (12.1-14.9) SECO NDS INR (0.8-1.2) D-Dimer (0-0.59) ug/mIFE U Sodium (136-145) mmol/L Potassium (3.5-5.1) mmol/L Chloride (98-107) mmol/L Carbon Dioxide (22-29) mmol/L Anion Gap (5-19) BUN (8-23) mg/dL Creatinine (0.5-0.9) mg/dL GFR Calculation Glucose (65-115) mg/dL Calculated Osmolal ity (285-295) mOsm/k g Lactic Acid 2.0 (0.5-2.2) mmol/L Calcium (8.5-10.5) mg/dL Magnesium (1.7-2.3) mg/dL Total Bilirubin (0.15-1.2) mg/dL AST (0-32) U/L ALT (0-33) U/L Alkaline Phosphata se (35-105) IU/L Troponin T Baselin e 176 H* (0-10) ng/L Troponin T 120 Min [place] (0-10) ng/L Delta Troponin T (0-10) ABS# C-Reactive Protein (0.0-4.9) mg/L NT-Pro-B Natriuret Pep (0-450) pg/mL Total Protein (6.6-8.7) g/dL Albumin (3.5-5.2) g/dL Globulin (1.3-4.6) g/dL Lipase (13-60) U/L Procalcitonin (0-0.5) ng/mL Urine Color Yellow (Yellow) Urine Appearance Hazy A (CLEAR) Urine pH 5 (5-7) Ur Specific Gravit y 1.020 (1.005-1.030) Urine Protein 2+ H (Negative) Urine Glucose (UA) Norm (Normal) Urine Ketones Negative (Negative) Urine Blood 3+ H (Negative) Urine Nitrate Negative (Negative) Urine Bilirubin 1+ H (Negative) Urine Urobilinogen Norm (Negative) mg/dL Ur Leukocyte [place] ase 2+ H (Negative) Urine RBC 25-40 H (0-2) /hpf Urine WBC 40-55 H (0-5) /hpf Ur Squamous Epith Cells 0-4 H (0-5) /hpf Amorphous Sediment Not Reportable Urine Bacteria 3+ H (NONE) /hpf Urine Mucus 2+ /hpf 09//20 Range/Units 14:10 WBC (4.0-10.0) 10^3/ uL RBC (4.1-5.3) 10^6/u L Hgb (11.5-15.3) g/dL Hct (37.0-47.0) % MCV (81-99) fL MCH (28.0-34.0) pg MCHC (30.0-36.0) g/dL RDW (12.1-15.1) % Plt Count (130-400) 10^3/c mm MPV (7.4-10.4) fL Neut % (Auto) % Lymph % (Auto) % [place] % (Auto) % Eos % (Auto) % Baso % (Auto) % Neut # (Auto) (1.8-7.7) 10^3/u L Lymph # (Auto) (0.8-4.8) 10^3/u L [place] # (Auto) (0.2-0.9) 10^3/u L Eos # (Auto) (0.0-0.8) 10^3/u L Baso # (Auto) (0.0-0.1) 10^3/u L Nucleated RBC % (a uto) % Nucleated RBCs # /100WBC PT (12.1-14.9) SECO NDS INR (0.8-1.2) D-Dimer (0-0.59) ug/mIFE U Sodium (136-145) mmol/L Potassium (3.5-5.1) mmol/L Chloride (98-107) mmol/L Carbon Dioxide (22-29) mmol/L Anion Gap (5-19) BUN (8-23) mg/dL Creatinine (0.5-0.9) mg/dL GFR Calculation Glucose (65-115) mg/dL Calculated Osmolal ity (285-295) mOsm/k g Lactic Acid (0.5-2.2) mmol/L Calcium (8.5-10.5) mg/dL Magnesium (1.7-2.3) mg/dL Total Bilirubin (0.15-1.2) mg/dL AST (0-32) U/L ALT (0-33) U/L Alkaline Phosphata se (35-105) IU/L Troponin T Baselin e (0-10) ng/L Troponin T 120 Min [place] 184.1 H (0-10) ng/L Delta Troponin T 8.1 (0-10) ABS# C-Reactive Protein (0.0-4.9) mg/L NT-Pro-B Natriuret Pep (0-450) pg/mL Total Protein (6.6-8.7) g/dL Albumin (3.5-5.2) g/dL Globulin (1.3-4.6) g/dL Lipase (13-60) U/L Procalcitonin (0-0.5) ng/mL Urine Color (Yellow) Urine Appearance (CLEAR) Urine pH (5-7) Ur Specific Gravit y (1.005-1.030) Urine Protein (Negative) Urine Glucose (UA) (Normal) Urine Ketones (Negative) Urine Blood (Negative) Urine Nitrate (Negative) Urine Bilirubin (Negative) Urine Urobilinogen (Negative) mg/dL Ur Leukocyte [place] ase (Negative) Urine RBC (0-2) /hpf Urine WBC (0-5) /hpf Ur Squamous Epith Cells (0-5) /hpf Amorphous Sediment Urine Bacteria (NONE) /hpf Urine Mucus /hpf Discharge Plan Discharge Patient Disposition: Xfer Other Referrals: Aldo Goodrich MD [Primary Care Provider] - Discharge Date/Time: 01/04/20 20:01 Coding Level of Care Code ED Technical Assistant for Chg Fwd Exam Comprehensive
[2020-01-04] MEDS: ondansetron 2 mg/ML SDV 2 mL 4 MG IVP (11:25)
[2020-01-04] MEDS: HYDROmorphone 1 mg/mL INJ 1 mL 0.5 MG IVP (11:30)
[2020-01-04] MEDS: lactated ringers 500 ML 999 ML IV (11:32)
[2020-01-04 12:00] LABS: Basophils % 0.5 %; Hematocrit 31.9 % (37.0-47.0); Hemoglobin 9.9 g/dL (11.5-15.3); Lymphocytes # 2.4 10^3/uL (0.8-4.8); Lymphocytes % 30.1 %; Mean Corpuscular Hemoglobin 29.2 pg (28.0-34.0); Mean Corpuscular Volume 94.1 fL (81-99); Mean Platelet Volume 9.5 fL (7.4-10.4); Monocytes # 0.3 10^3/uL (0.2-0.9); Monocytes % 3.7 %; Neutrophils # 5.16 10^3/uL (1.8-7.7); Neutrophils % 65.3 %; Nucleated Red Blood Cells % 0 %; Platelet Count 601 10^3/cmm (130-400); Red Blood Count 3.39 10^6/uL (4.1-5.3); Red Cell Distribution Width 17.6 % (12.1-15.1); White Blood Count 7.9 10^3/uL (4.0-10.0)
[2020-01-04 12:19] LABS: D Dimer 1.69 ug/mIFEU (0-0.59)
[2020-01-04 12:30] LABS: NT Pro B Type Natriuretic Pept 3548 pg/mL (0-450)
[2020-01-04 12:32] LABS: Troponin(5th) Baseline 176 ng/L (0-10)
[2020-01-04 12:41] LABS: Alanine Aminotransferase 27 U/L (0-33); Albumin Level 3.2 g/dL (3.5-5.2); Alkaline Phosphatase 117 IU/L (35-105); Anion Gap 20.3 (5-19); Aspartate Amino Transferase 28 U/L (0-32); Blood Urea Nitrogen 18 mg/dL (8-23); C Reactive Protein 10.7 mg/L (0.0-4.9); Carbon Dioxide 14 mmol/L (22-29); Chloride 105 mmol/L (98-107); Globulin 3.3 g/dL (1.3-4.6); Glucose 114 mg/dL (65-115); Lipase 25 U/L (13-60); Magnesium 1.6 mg/dL (1.7-2.3); Osmolality Calculated 283 mOsm/kg (285-295); Potassium 4.3 mmol/L (3.5-5.1); Sodium 135 mmol/L (136-145); Total Bilirubin 0.2 mg/dL (0.15-1.2); Total Protein 6.5 g/dL (6.6-8.7)
--- NOTE | 2020-01-04 13:05 | ECG_ITS ---
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 Measurements Intervals [place] Rate: 80 P: SD: -1 QRS: 52 QRSD: 119 T: 27 QT: 411 QTc: 476 Interpretive Statements ATRIAL FIBRILLATION INCOMPLETE RIGHT BUNDLE BRANCH BLOCK [90+ ms QRS DURATION, TERMINAL R IN V1/V2, 40+ ms S IN I/aVL/V4/V5/V6] ABNORMAL RHYTHM ECG INTERPRETATION BASED ON A DEFAULT AGE OF 40 YEARS Compared to ECG 01/04/2020 12:21:15 Incomplete right bundle-branch block now present Sinus rhythm no longer present Right bundle-branch block no longer present Electronically Signed On 01-05-2020 19:43:32 CDT by Jamal Arias M.D. [id number] f
[2020-01-04] MEDS: iodixanol 320 mg/mL 100mL Btl IV (13:39)
[2020-01-04 14:01] LABS: Add Urine Microscopic? YES; Bilirubin Urine 1+ (Negative); Blood Urine 3+ (Negative); Glucose Urine UA Norm (Normal); Ketones Urine Negative (Negative); Leukocyte Esterase Urine 2+ (Negative); Nitrate Urine Negative (Negative); Protein Urine 2+ (Negative); Urine Appearance Hazy (CLEAR); Urine Color Yellow (Yellow); Urobilinogen Urine Norm (Negative); pH Urine 5 (5-7)
[2020-01-04 14:10] LABS: RBC Urine 25-40 /hpf (0-2); Squamous Epithelial Cell Urine 0-4 /hpf (0-5); WBC Urine 40-55 /hpf (0-5)
[2020-01-04 14:11] LABS: Add Urine Culture? Yes; Bacteria Urine 3+ /hpf; Mucus Urine 2+ /hpf
[2020-01-04 14:48] LABS: Troponin 5 2HR Delta 8.1 ABS# (0-10)
[2020-01-04 14:57] LABS: Troponin 5 2HR 184.1 ng/L (0-10)
--- NOTE | 2020-01-04 17:05 | ECG_ITS ---
[facility] Test Date: 2020-01-04 Pat Name: Marissa Lara Department: Room: Gender: Female Face Hardener: Annia BEVERLYB: 1940 Requested By: Dora Lopez Order Number: [id number] Gale MD: Jamal Arias M.D. Measurements Intervals [place] Rate: 79 P: MS: -1 QRS: 65 QRSD: 125 T: 40 QT: 405 QTc: 467 Interpretive Statements SINUS RHYTHM WITH 2ND DEGREE AV BLOCK, 2:1 OR MOBITZ TYPE II RIGHT BUNDLE BRANCH BLOCK [120+ ms QRS DURATION, UPRIGHT V1, 40+ ms S IN I/aVL/V4/V5/V6] Compared to ECG 01/04/2020 14:11:04 Right bundle-branch block now present Electronically Signed On 01-05-2020 19:41:42 CDT by Jamal Arias M.D. [id number]
--- NOTE | 2020-01-04 17:40 | PC.NURSE ---
ekg done and given to ED physician
[2020-01-04] MEDS: piperacillin-tazobactam 3.375 GM in sodium chloride 0.9% (plus) 50 ML IV (18:40)
== END 2020-01-04 20:01 | disposition other institution (70) ==
PROVIDERS: Emergency Provider Emergency Medicine; PCP Family Medicine
DX: R10.9 Unspecified abdominal pain (principal); E11.9 Type 2 diabetes mellitus without complications; E78.5 Hyperlipidemia, unspecified; I10 Essential (primary) hypertension
CPT/HCPCS: 12345; 71045; 74177; 80053; 81001; 83605; 83690; 83735; 83880; 84145; 84484; 85025; 85378; 85610; 86140; 87077; 87086; 87186; 93005; 96365; 96366; 96375; 99283; 99285; J1170; J2405; J2543; Q9967